=== PATIENT | male | born 1955 | race Caucasian/White ===

== ENCOUNTER 2018-07-06 08:31 | Inpatient (IN) ==
[2018-07-06] MEDS ORDERED: LACTATED RINGERS 1,000 ML IV ONE ×3 (09:03→12:39)
[2018-07-06] MEDS ORDERED: 0.9 % SODIUM CHLORIDE 250 ML IV SCH (09:30)
[2018-07-06] MEDS ORDERED: ONDANSETRON 4 MG/2 ML VIAL IV ONE (09:48)
[2018-07-06 10:10] LABS: ALT/SGPT 14 U/l (0-40); Albumin 3.5 gm/dL (3.2-5.2); Albumin/Globulin Ratio 0.9 (1.0-2.3); Alkaline Phosphatase 59 U/L (39-117); Blood Urea Nitrogen 24 mg/dl (6-20)
[2018-07-06 10:24] LABS: Basophils # (Auto) 0 K/mcL (0.0-0.3); Basophils % (Auto) 0 % (0.0-2.0); Eosinophils # (Auto) 0.2 K/mcL (0.0-0.7); Eosinophils % (Auto) 1.3 % (0.0-7.0); Granulocytes % (Auto) 74.6 % (38.0-78.0); Lymphocytes # (Auto) 1.9 K/mcL (1.5-4.8); Lymphocytes % (Auto) 15.5 % (15.5-49.0); Mean Cell Volume 86.8 fL (80.0-100.0); Mean Corpuscular Hemoglobin 28.6 pg (26.0-34.0); Monocytes % (Auto) 8.6 % (1.0-12.0); Platelet Count 315 K/mcL (140-440); RBC 4.05 M/mcL (4.50-5.90)
--- NOTE | 2018-07-06 10:42 | Emergency Department Note ---
GI Bleed HPI - General Chief complaint: Rectal Bleed Stated complaint: "Blood in my rectum" Time Seen by Provider: 07/06/18 09:50 Source: patient Mode of arrival: ambulatory Limitations: no limitations - History of Present Illness HPI Narrative: Patient states he has been having increased weakness over the past week. Was seen by his primary care provider on 3 days ago complaining mostly of nausea did not have any bleeding at that time. He states over the past 2-3 days he has been having some blood in his stools and when he vomited did have some blood streaks over the past 2 days. Patient has had a history of alcohol abuse in the past but states he has not drank in the past 3 years. Had a history of pancreatitis in the past he was evaluated by Dr. Pretty his primary care provider and at that time his hemoglobin is 14.7 hematocrit of 44.[address] Ash record he has been having vomiting over the past week due to him being seen on . He did have a fall yesterday because of the weakness and did hit his head there was no loss of consciousness. He does have some neck pain but he states he also has some chronic neck pain - Related Data Home Medications Medication Instructions Recorded Confirmed divalproex 250 mg tablet,delayed 250 mg PO .COMPLEX 06/03/18 07/05/18 release Prosvent PO BID 06/11/18 07/05/18 Citalopram Hydrobromide 40 mg PO .COMPLEX 06/14/18 07/05/18 [Citalopram HBr] Previous Rx's Medication Instructions Recorded blood sugar diagnostic, disc strips See Dose Instructions .ROUTE 04/04/17 .MEDSUPPLY #100 each NS MDD Three times daily blood-glucose meter See Dose Instructions .ROUTE 04/04/17 .MEDSUPPLY #1 each MDD Three times daily insulin glargine (U-100) 100 24 unit SUB-Q QHS #3 ml 05/24/17 unit/mL (3 mL) subcutaneous pen tamsulosin 0.4 mg capsule 0.4 mg PO BID #60 cap 08/27/17 pravastatin 40 mg tablet 40 mg PO QHS #90 tab 09/19/17 metformin 1,000 mg tablet 1,000 mg PO BID 90 Days #180 tab 12/31/17 finasteride 5 mg tablet 5 mg PO QDAY #90 tab 02/20/18 blood-glucose meter See Dose Instructions .ROUTE 02/21/18 .MEDSUPPLY #1 each metoprolol tartrate 25 mg tablet 25 mg PO BID #180 tab 03/14/18 nortriptyline 10 mg capsule 10 mg PO QHS #90 cap 04/03/18 trazodone 50 mg tablet 50 mg PO QHS #90 tab 04/16/18 buspirone 10 mg tablet 15 mg PO BID #180 tab 04/23/18 Accu-Chek Softclix Lancets See Dose Instructions .ROUTE 04/25/18 .MEDSUPPLY #200 each NS MDD Three times daily catheter 16 Fr See Dose Instructions .ROUTE 05/15/18 .MEDSUPPLY #12 each blood sugar diagnostic strips See Dose Instructions .ROUTE 06/03/18 .MEDSUPPLY #100 each levothyroxine 75 mcg tablet 75 mcg PO QDAY #90 tab 06/03/18 pen needle, diabetic 32 gauge x See Dose Instructions .ROUTE 06/17/1832" .MEDSUPPLY #200 each MDD QID ondansetron 4 mg disintegrating 4 mg PO BID-TID PRN #30 tab 07/04/18 tablet Allergies Allergy/AdvReac Type Severity Reaction Status Date / Time insulin glargine Allergy Severe Itching, Verified 07/05/18 08:08 [From Basaglar KwikPen] Rash venlafaxine [From Effexor] AdvReac Mild Itching Verified 07/06/18 08:32 Lantus solostar Allergy Severe Rash, Uncoded 07/05/18 08:08 itching Review of Systems All systems ED: reviewed and negative except as stated. Constitutional: Denies: fever, chills Gastrointestinal: Reports: nausea, vomiting, diarrhea, other (Blood in stool, some blood tinge vomitus. No coffee-ground emesis) Genitourinary: Denies: dysuria, frequency, urgency Musculoskeletal: Denies: back pain, joint swelling Integumentary: Denies: rash, lesions Neurological: Denies: headache, weakness Psychiatric: Denies: anxiety, depression Endocrine: Denies: fatigue Hematological/Lymphatic: Denies: easy bleeding Allergic/Immunologic: Denies: facial swelling Past Medical History - Past Medical History PMFSH Narrative: All Active Problems (Last Reviewed 07/05/18 @ 08:09 by María Miranda RN) Shoulder pain (Acute) Urinary retention due to benign prostatic hyperplasia (Acute) BPH (benign prostatic hyperplasia) (Acute) Urinary retention (Acute) Cervical radicular pain (Chronic) Left shoulder pain (Acute) Neck pain (Chronic) Irritable bowel syndrome with diarrhea (Chronic) Alcoholism (Chronic) Hypertension (Chronic) Sleep apnea (Chronic) Encounter for medication refill (Acute) Right ankle pain (Acute) Elevated PSA (Acute) Urinary tract infection (Acute) Headache (Acute) Change in vision (Acute) Patellofemoral syndrome of left knee (Acute) Diabetes type 2, uncontrolled (Chronic) Hyperlipidemia associated with type 2 diabetes mellitus (Chronic) Diabetes mellitus (Chronic) Erectile dysfunction (Chronic) Depression (Chronic) 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) History of ERCP (Chronic) Urinary retention (Chronic) Ulnar nerve compression (Chronic) Pancreatitis (Chronic) Neoplasm of uncertain behavior of skin (Chronic) Memory loss (Chronic) Insomnia due to mental disorder (Chronic) Hypertension, essential (Chronic) Dyspepsia (Chronic) Major depressive disorder, recurrent episode, in full remission (Chronic) Carpal tunnel syndrome (Chronic) Cardiac dysrhythmia (Chronic) Benign prostatic hyperplasia with urinary obstruction (Chronic) Benign neoplasm with pluriglandular involvement (Acute) Bipolar I disorder, most recent episode (or current) depressed, in partial or unspecified remission (Chronic) Anxiety disorder (Chronic) Anemia (Chronic) Alcohol abuse, continuous (Chronic) Past Surgical History (Last Reviewed 07/05/18 @ 08:09 by María Miranda RN) Squamous cell carcinoma (Inactive) History of prostate biopsy (Inactive) History of ERCP (Chronic) Colonoscopy planned (Resolved) Family History (Last Reviewed 07/05/18 @ 08:09 by María Miranda RN) Father Malignant neoplasm of brain Grandfather (Maternal) Type 2 diabetes mellitus Unknown No history of heart disease Family History (Last Reviewed 07/05/18 @ 08:09 by María Miranda RN) Father Malignant neoplasm of brain Grandfather (Maternal) Type 2 diabetes mellitus Unknown No history of heart disease Social History (Last Updated 07/05/18 @ 08:19 by Les Case MD) No Social History Section defined Medical history: Reports: DM (Type II insulin using.), hypertension (But was going low enough that this was discontinued about 2017.), other (chronic neck pain). Denies: cancer, coronary artery disease, CVA, myocardial infarction, TIA Psychiatric history: Reports: anxiety, depression Surgical history ED: Reports: orthopedic, other (Cervical fusion.) - Social History smoking status: Current every day smoker Alcohol use: Reports: Heavy (Heavy in the past states has not drank for 3 years) Drug use: Reports: none Physical Exam Limitations: no limitations General appearance: alert Head: atraumatic, normocephalic Eye: Present: normal appearance, PERRL ENT: normal exam, normal oropharynx, mucous membranes moist Neck: Present: normal inspection, full ROM, trachea midline Chest: Present: normal inspection, symmetric chest wall rise. Absent: tenderness Respiratory: Present: normal lung sounds bilaterally. Absent: respiratory distress, rales/crackles, wheezes Cardiovascular: Present: regular rate, normal rhythm Abdominal: Present: tenderness, normal bowel sounds. Absent: guarding, rebound , rigidity Abdominal tenderness: Present: epigastrium Rectal: Present: normal inspection, normal rectal tone, heme (+) stool Extremities: Present: normal inspection, full ROM Back: Present: normal inspection, full ROM Neurological: Present: alert, oriented X3, CN II-XII intact Psychiatric: Present: normal affect, normal mood Skin: Present: warm Course Vital Signs Temperature 96.8 F L 07/06/18 08:32 Pulse Rate 89 07/06/18 08:32 Respiratory Rate 18 07/06/18 08:32 Blood Pressure 84/56 07/06/18 08:32 Pulse Oximetry (%) 99 07/06/18 08:32 Temperature 96.8 F L 07/06/18 08:32 Pulse Rate 69 07/06/18 11:52 Respiratory Rate 26 H 07/06/18 11:52 Blood Pressure 90/59 07/06/18 11:46 Pulse Oximetry (%) 97 07/06/18 11:52 GI Bleed - [facility] Narrative Medical decision making narrative: Head CT neck CT was read as negative by Dr. StantonBC is 12,100 hemoglobin is 11.6 hemoglobin 3 days ago was 14.7 medical today's 38 previous hematocrit on was 44. The BUN is 26 creatinine 0.9. Sodium is 135 and the potassium is 4.1 lipase is pending. His initial blood pressure was 84/56, with a pulse of 89His current blood pressure is 110/64 pulse is down to 64Hemoglobin is 11.6 and a hematocrit of 38.0 previous hemoglobin was 14 on 3 days ago. His blood pressures did get up to 100 systolic but is back down to 90 he came in with a blood pressure of 70s systolically did have a fall yesterday from weakness lightheadedness lactic acid 2.7 lipase is 58 BUN is 26 creatinine of 0.[address] Alberto contacted and he will do an EGD this afternoon to be kept n.p.o. Dr. Tomlinson, hospitalist at [facility] has accepted the patient to stabilize and continue further workup patient states he has been taking ibuprofen over the past week at least 4 tablets a day but again denies alcohol for the past 3-5 years - Lab Data Result diagrams: 07/06/18 08:57 07/06/18 08:57 Lab Results 07/06/18 07/06/18 07/06/18 Range/Units 08:57 08:57 08:57 WBC 12.1 H (4.5-11.0) K/mcL RBC 4.05 L (4.50-5.90) M/mcL Hgb 11.6 L (13.5-16.5) g/dL Hct 35.1 L (41.0-55.0) % POC Hct 38.0 L (41.0-55.0) % MCV 86.8 (80.0-100.0) fL MCH 28.6 (26.0-34.0) pg MCHC 33.0 (31.0-36.0) g/dL RDW 15.0 H (11.5-14.5) % Plt Count 315 (140-440) K/mcL MPV 7.6 (7.4-10.4) fL Gran % 74.6 (38.0-78.0) % Lymph % (Auto) 15.5 (15.5-49.0) % Liberty % (Auto) 8.6 (1.0-12.0) % Eos % (Auto) 1.3 (0.0-7.0) % Baso % (Auto) 0 (0.0-2.0) % Gran # 9.0 H (1.8-8.0) K/mcL Lymph # (Auto) 1.9 (1.5-4.8) K/mcL Liberty # (Auto) 1.0 H (0.1-0.9) K/mcL Eos # (Auto) 0.2 (0.0-0.7) K/mcL Baso # (Auto) 0 (0.0-0.3) K/mcL VBG Lactic Acid (0.5-2.2) mmol/L POC Sodium 135 (133-145) mmol/L Sodium 133 (133-145) mmol/L POC Potassium 4.1 (3.3-5.1) mmol/L Potassium 4.2 (3.3-5.1) mmol/L POC Chloride 97 (96-108) mmol/L Chloride 94 L (96-108) mmol/L Carbon Dioxide 24 (22-30) mmol/L POC Total CO2 25 (22-30) mmol/L Anion Gap 15.0 (8-16) POC BUN 26 H (6-20) mg/dl BUN 24 H (6-20) mg/dl Creatinine 0.9 (0.7-1.2) mg/dl POC Creatinine 0.8 (0.7-1.2) mg/dl GFR Calculation 93 Glucose 107 H (70-105) mg/dL POC Glucose 106 H (70-105) mg/dL Calcium 9.2 (8.6-10.4) mg/dl POC WB Ioniz Calcium 1.16 (1.16-1.32) mmol/L Total Bilirubin 0.3 (0.0-1.0) mg/dL AST 19 (0-37) U/l ALT 14 (0-40) U/l Alkaline Phosphatase 59 (39-117) U/L Total Protein 7.2 (5.9-8.4) gm/dL Albumin 3.5 (3.2-5.2) gm/dL Globulin 3.7 (2.2-3.7) gm/dL Albumin/Globulin Ratio 0.9 L (1.0-2.3) Lipase 58 (7-60) U/L Ethyl Alcohol (<0.010) gm/dl 07/06/18 07/06/18 Range/Units 08:57 10:30 WBC (4.5-11.0) K/mcL RBC (4.50-5.90) M/mcL Hgb (13.5-16.5) g/dL Hct (41.0-55.0) % POC Hct (41.0-55.0) % MCV (80.0-100.0) fL MCH (26.0-34.0) pg MCHC (31.0-36.0) g/dL RDW (11.5-14.5) % Plt Count (140-440) K/mcL MPV (7.4-10.4) fL Gran % (38.0-78.0) % Lymph % (Auto) (15.5-49.0) % Liberty % (Auto) (1.0-12.0) % Eos % (Auto) (0.0-7.0) % Baso % (Auto) (0.0-2.0) % Gran # (1.8-8.0) K/mcL Lymph # (Auto) (1.5-4.8) K/mcL Liberty # (Auto) (0.1-0.9) K/mcL Eos # (Auto) (0.0-0.7) K/mcL Baso # (Auto) (0.0-0.3) K/mcL VBG Lactic Acid 2.7 H (0.5-2.2) mmol/L POC Sodium (133-145) mmol/L Sodium (133-145) mmol/L POC Potassium (3.3-5.1) mmol/L Potassium (3.3-5.1) mmol/L POC Chloride (96-108) mmol/L Chloride (96-108) mmol/L Carbon Dioxide (22-30) mmol/L POC Total CO2 (22-30) mmol/L Anion Gap (8-16) POC BUN (6-20) mg/dl BUN (6-20) mg/dl Creatinine (0.7-1.2) mg/dl POC Creatinine (0.7-1.2) mg/dl GFR Calculation Glucose (70-105) mg/dL POC Glucose (70-105) mg/dL Calcium (8.6-10.4) mg/dl POC WB Ioniz Calcium (1.16-1.32) mmol/L Total Bilirubin (0.0-1.0) mg/dL AST (0-37) U/l ALT (0-40) U/l Alkaline Phosphatase (39-117) U/L Total Protein (5.9-8.4) gm/dL Albumin (3.2-5.2) gm/dL Globulin (2.2-3.7) gm/dL Albumin/Globulin Ratio (1.0-2.3) Lipase (7-60) U/L Ethyl Alcohol < 0.010 (<0.010) gm/dl Disposition Pt seen by PRIMARY HEALTH ORGANISATION MANAGER/PA only: No Clinical Impression: GI bleed Disposition: Xfer As Inpt ([facility]) Condition: Fair Referrals: Nando Pretty DO [Primary Care Provider] -
[2018-07-06] MEDS ORDERED: PANTOPRAZOLE 40 MG VIAL IV ONE (10:47)
[2018-07-06] MEDS ORDERED: PANTOPRAZOLE 80 MG in 0.9 % SODIUM CHLORIDE 100 ML IV SCH (11:00)
[2018-07-06] MEDS: LACTATED RINGERS 1,000 ML IV SCH ×2 (11:15→20:10)
[2018-07-06] MEDS ORDERED: ONDANSETRON 4 MG/2 ML VIAL IV PRN ×2 (12:29→13:25)
[2018-07-06] MEDS ORDERED: 0.9 % SODIUM CHLORIDE 1,000 ML IV SCH (12:30)
--- NOTE | 2018-07-06 12:42 | Internal Med History&Physical ---
Medical - H&P: [facility] Patient information: Note initiated : 07/06/18 at 12:38 pm Service Date, if different from initiated Date: [] Patient: Ozzy Greenberg 62 y/o M admitted on for "Blood in my rectum". Chief Complaint: [] History of present illness: Mr. Greenberg is a 62 year old M Who has been taking ibuprofen every day since procedure with Dr. Case several weeks ago. Patient to use [id number] ibuprofen, 4 tablets daily typically. Last Sunday night he threw up what appeared to be dark blood coffee ground in appearance. The next day saw his primary care provider patient was given Zofran and continue with good oral hydration, if unable to keep anything down to go to the ER. Next 2 days he was able to keep fluids down, however today he woke up a large dark bloody stool. Yesterday he also became so lightheaded that he passed out. Has been very weak lately. Denies any chest pain he has chronic cough and shortness of breath which is normal for him. He is to drink heavily he says he has not had any alcohol for 35 years. Does not recall ever being told he has varices. In the ER is evaluate his hemoglobin is 11.6 down from 14 a few days ago, BUN mildly up. Was found to be hypotensive in the 70s and given lactated Ringer boluses in the ER. Also found to have an elevated lactate. Patient complains of headaches lightheadedness weakness chills. Dr. Alberto contacted from the ED and will perform endoscopy Review of Systems: Positive for lightheadedness syncope weakness chills vomiting blood blood in stools . denies headache/fever/chills/nausea/vomiting/chest or abdominal pain/ cough/dyspnea/diarrhea. 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) Urinary retention (Chronic) Ulnar nerve compression (Chronic) Pancreatitis (Chronic) Neoplasm of uncertain behavior of skin (Chronic) Memory loss (Chronic) Insomnia due to mental disorder (Chronic) Hypertension, essential (Chronic) Hypercalcemia (Resolved) Encephalopathy (Resolved) Dyspepsia (Chronic) Major depressive disorder, recurrent episode, in full remission (Chronic) Carpal tunnel syndrome (Chronic) Cardiac dysrhythmia (Chronic) Benign prostatic hyperplasia with urinary obstruction (Chronic) Benign neoplasm with pluriglandular involvement (Acute) Bipolar I disorder, most recent episode (or current) depressed, in partial or unspecified remission (Chronic) Anxiety disorder (Chronic) Anemia (Chronic) Alcohol abuse, continuous (Chronic) Fracture of metatarsal bone, closed (Resolved) Hypothyroidism (acquired) (Resolved) Rash, skin (Resolved) Renal failure (Resolved) Sprain of ankle (Resolved) Past Surgical History (Last Reviewed 07/05/18 @ 08:09 by María Miranda, ZAK) Squamous cell carcinoma (Inactive) History of prostate biopsy (Inactive) History of ERCP (Chronic) Colonoscopy planned (Resolved) Family History (Last Reviewed 07/05/18 @ 08:09 by María Miranda, ZAK) Father Malignant neoplasm of brain Grandfather (Maternal) Type 2 diabetes mellitus Unknown No history of heart disease Social History (Last Updated 07/05/18 @ 08:19 by Les Case MD) Smokes 1 pack/day Has not had any alcohol for 3 years Uses marijuana occasionally Ambulates with a cane on occasion Lives by himself Medical - H&P: Meds Home Medications Medication Instructions Recorded Confirmed Type blood sugar diagnostic, disc strips See Dose Instructions .ROUTE 04/04/17 Rx .MEDSUPPLY #100 each NS MDD Three times daily blood-glucose meter See Dose Instructions .ROUTE 04/04/17 07/05/18 Rx .MEDSUPPLY #1 each MDD Three times daily insulin glargine (U-100) 100 24 unit SUB-Q QHS #3 ml 05/24/17 07/05/18 Rx unit/mL (3 mL) subcutaneous pen tamsulosin 0.4 mg capsule 0.4 mg PO BID #60 cap 08/27/17 07/05/18 Rx pravastatin 40 mg tablet 40 mg PO QHS #90 tab 09/19/17 07/05/18 Rx metformin 1,000 mg tablet 1,000 mg PO BID 90 Days #180 tab 12/31/17 07/05/18 Rx finasteride 5 mg tablet 5 mg PO QDAY #90 tab 02/20/18 07/05/18 Rx blood-glucose meter See Dose Instructions .ROUTE 02/21/18 07/05/18 Rx .MEDSUPPLY #1 each metoprolol tartrate 25 mg tablet 25 mg PO BID #180 tab 03/14/18 07/05/18 Rx nortriptyline 10 mg capsule 10 mg PO QHS #90 cap 04/03/18 07/05/18 Rx trazodone 50 mg tablet 50 mg PO QHS #90 tab 04/16/18 07/05/18 Rx buspirone 10 mg tablet 15 mg PO BID #180 tab 04/23/18 07/05/18 Rx Accu-Chek Softclix Lancets See Dose Instructions .ROUTE 04/25/18 07/05/18 Rx .MEDSUPPLY #200 each NS MDD Three times daily catheter 16 Fr See Dose Instructions .ROUTE 05/15/18 07/05/18 Rx .MEDSUPPLY #12 each blood sugar diagnostic strips See Dose Instructions .ROUTE 06/03/18 07/05/18 Rx .MEDSUPPLY #100 each divalproex 250 mg tablet,delayed 250 mg PO .COMPLEX 06/03/18 07/05/18 History release levothyroxine 75 mcg tablet 75 mcg PO QDAY #90 tab 06/03/18 07/05/18 Rx Prosvent PO BID 06/11/18 07/05/18 History Citalopram Hydrobromide 40 mg PO .COMPLEX 06/14/18 07/05/18 History [Citalopram HBr] pen needle, diabetic 32 gauge x See Dose Instructions .ROUTE 06/17/18 07/05/18 Rx 5/32" .MEDSUPPLY #200 each MDD QID ondansetron 4 mg disintegrating 4 mg PO BID-TID PRN #30 tab 07/04/18 07/05/18 Rx tablet Allergies Allergy/AdvReac Type Severity Reaction Status Date / Time insulin glargine Allergy Severe Itching, Verified 07/05/18 08:08 [From Mosesaglcassi Birch] Rash venlafaxine [From Effexor] AdvReac Mild Itching Verified 07/06/18 08:32 Lantus solostar Allergy Severe Rash, Uncoded 07/05/18 08:08 itching Medical - H&P: Exam - Constitutional Vitals: Temp Pulse Resp BP Pulse Ox 96.8 F L 69 26 H 90/59 97 07/06/18 08:32 07/06/18 11:52 07/06/18 11:52 07/06/18 11:46 07/06/18 11:52 Exam: General: Alert, Awake, No acute Distress HEENT: EOMI, pupils equal round react to light, normocephalic atraumatic, dry mucous members CV: RRR, No murmurs, normal s1/s2 Pulm: Clear b/l, no wheezing/rhonchi/rales Abd: soft, tender to palpation epigastrium, +BS x4 Ext: no clubbing/cyanosis/edema Neuro: Alert, no focal deficits, moves all extremities Skin: warm/dry Medical - H&P: Reslt - Labs CBC & Chem 7: 07/06/18 08:57 07/06/18 08:57 Labs: Short CBC 07/06/18 Range/Units 08:57 WBC 12.1 H (4.5-11.0) K/mcL Hgb 11.6 L (13.5-16.5) g/dL Hct 35.1 L (41.0-55.0) % Plt Count 315 (140-440) K/mcL BMP 07/06/18 08:57 Sodium 133 Potassium 4.2 Chloride 94 L Carbon Dioxide 24 BUN 24 H Creatinine 0.9 Glucose 107 H Calcium 9.2 Liver Function 07/06/18 Range/Units 08:57 Total Bilirubin 0.3 (0.0-1.0) mg/dL AST 19 (0-37) U/l ALT 14 (0-40) U/l Alkaline Phosphatase 59 (39-117) U/L Albumin 3.5 (3.2-5.2) gm/dL Medical - H&P: A/P - Narrative A/P Narrative: A: *GI bleed w/hematemesis & melena: Likely PUD, but given h/o etoh concern for varices, although this does not appear to be variceal bleed at this time. -Recent NSAID use *Hypertension, hemorrhagic volume loss: Responding IV fluids *Anemia, acute blood loss: secondary to above *Syncope: secondary to above *Diabetes: On insulin and metformin at home *Hypertension: Is on Lopressor at home *Depression/anxiety: *Hypothyroidism *Tobacco abuse: P: -Serial H&H -IV fluid resuscitation -GI consulted, pending endoscopy today -Octreotide and Protonix drip -Follow-up lactate -Hold blood pressure medications -Clarify other home medications -NPO -ppx: SCD
[2018-07-06] MEDS ORDERED: NICOTINE 21 MG PATCH TOPICAL ONE (13:25)
[2018-07-06] MEDS: 0.9 % SODIUM CHLORIDE 1,000 ML IV SCH (13:54)
[2018-07-06] MEDS ORDERED: OCTREOTIDE ACETATE 500 MCG in 0.9 % SODIUM CHLORIDE 499.5 ML IV SCH (14:00)
[2018-07-06] MEDS ORDERED: 0.9 % SODIUM CHLORIDE 10 ML SYRINGE IV SCH (14:00)
[2018-07-06] MEDS: 0.9 % SODIUM CHLORIDE 10 ML SYRINGE IV SCH ×2 (14:33→21:41)
--- NOTE | 2018-07-06 15:24 | Cat Scan Report ---
History: Fell and hit right side of face and head TECHNIQUE: The brain was imaged without contrast at 2.5 mm intervals. Radiation exposure was limited using dose reduction technology. FINDINGS: There is no evidence of mass affect, hemorrhage, infarct or developmental anomaly. There is mild generalized cerebral atrophy. The ventricles are normal in size. No abnormal extra-axial fluid collection is present. The bone windows show no fracture. Mild bilateral maxillary sinusitis is noted. There has been little change from the prior exam done on 04/17/17. IMPRESSION: Mild atrophy and no acute abnormality Dr. Hernandez was called with the results Interpreted and Authenticated by: Ozzy Yen 07/06/18
--- NOTE | 2018-07-06 15:29 | Cat Scan Report ---
History: Fell with neck injury TECHNIQUE: The neck was imaged without contrast at 2.5 mm intervals. Sagittal and coronal reformats were created. The radiation exposure was limited using dose reduction technology. FINDINGS: The cervico-occipital junction is normal. There is no fracture or spondylolisthesis. There is normal alignment and healing following prior fusion anteriorly across the C6-7 disc space. There is ossification of the anterior longitudinal ligament at that level. Very large anterior bridging spurs are present at C4-5 and C5-6 and there medium-size anterior spurs at C3-4 and C7-T1. There is also moderate arthritis at the articulation of the odontoid and anterior ring of C1. The C5-6 and C7-T1 discs are mildly narrowed. The remainder of the disc spaces are normal in height and alignment There is arthritis in the facet joints at several levels with the greatest degeneration on the left side at C4-5. There is also spurring of the uncinate processes at multiple levels. These degenerative changes are causing stenosis of neural foramina bilaterally throughout the neck. There is also mild central canal stenosis at C2-3, C3-4, C5-6. There has been no significant change since 01/09/18. 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
--- NOTE | 2018-07-06 15:32 | XRay Report ---
HISTORY: Fell and increased weakness FINDINGS: The lungs are clear and well expanded. The heart size, mediastinum, michelle and pleura are normal. There are several old healed bilateral rib fractures. No acute fracture is identified. There has been no significant change since 07/04/18. IMPRESSION: Normal chest. Interpreted and Authenticated by: Ozzy Yen 07/06/18
[2018-07-06] MEDS ORDERED: MIDAZOLAM 2 MG/2 ML VIAL IV SCH (16:15)
[2018-07-06] MEDS ORDERED: PROPOFOL 200 MG/20 ML VIAL IV SCH (16:15)
[2018-07-06] MEDS ORDERED: PROPOFOL 20 ML IV ONE (16:26)
[2018-07-06] MEDS ORDERED: MIDAZOLAM 2 MG/2 ML VIAL ONE (16:26)
[2018-07-06] MEDS ORDERED: EPINEPHrine 1 MG/ML AMPUL SQ ONE (18:56)
[2018-07-06] MEDS: 0.9 % SODIUM CHLORIDE 250 ML IV SCH (19:40)
[2018-07-06] MEDS: NORTRIPTYLINE 10 MG CAPSULE PO SCH (20:26)
[2018-07-06] MEDS: traZODone HCL 50 MG TABLET PO SCH (20:26)
[2018-07-06] MEDS: DIVALPROEX SODIUM 250 MG TAB.ER.24H PO SCH (20:27)
[2018-07-06] MEDS ORDERED: TAMSULOSIN 0.4 MG CAPSULE PO SCH (21:00)
[2018-07-06] MEDS: PANTOPRAZOLE 80 MG in 0.9 % SODIUM CHLORIDE 100 ML IV SCH (21:41)
[2018-07-07] MEDS: 0.9 % SODIUM CHLORIDE 1,000 ML IV SCH (01:16)
[2018-07-07 05:50] LABS: Basophils # (Auto) 0 K/mcL (0.0-0.3); Basophils % (Auto) 0.4 % (0.0-2.0); Eosinophils # (Auto) 0.1 K/mcL (0.0-0.7); Eosinophils % (Auto) 2.2 % (0.0-7.0); Granulocytes % (Auto) 54.1 % (38.0-78.0); Lymphocytes # (Auto) 1.1 K/mcL (1.5-4.8); Lymphocytes % (Auto) 34.2 % (15.5-49.0); Mean Cell Volume 91.6 fL (80.0-100.0); Mean Corpuscular HGB Conc 34.1 g/dL (31.0-36.0); Mean Corpuscular Hemoglobin 31.2 pg (26.0-34.0); Monocytes # (Auto) 0.3 K/mcL (0.1-0.9); Monocytes % (Auto) 9.1 % (1.0-12.0); Platelet Count 159 K/mcL (140-440); RBC 2.53 M/mcL (4.50-5.90); Red Cell Distribution Width 14.7 % (11.5-14.5)
[2018-07-07 06:35] LABS: ALT/SGPT 12 U/l (0-40); Albumin 2.1 gm/dL (3.2-5.2); Albumin/Globulin Ratio 0.8 (1.0-2.3); Alkaline Phosphatase 41 U/L (39-117); Bilirubin,Direct < 0.2 mg/dL (0.0-0.3); Blood Urea Nitrogen 14 mg/dl (6-20); Gamma Glutamyl Transpeptidase 10 U/L (8-61); Uric Acid 6.8 mg/dL (2.5-8.0)
[2018-07-07] MEDS: 0.9 % SODIUM CHLORIDE 10 ML SYRINGE IV SCH ×3 (06:36→20:55)
[2018-07-07] MEDS: FINASTERIDE 5 MG TABLET PO SCH (07:21)
[2018-07-07] MEDS: LEVOTHYROXINE 75 MCG TABLET PO SCH (07:21)
[2018-07-07] MEDS: DIVALPROEX SODIUM 250 MG TAB.ER.24H PO SCH ×2 (07:21→20:55)
[2018-07-07] MEDS: TAMSULOSIN 0.4 MG CAPSULE PO SCH (07:22)
[2018-07-07] MEDS: PANTOPRAZOLE 80 MG in 0.9 % SODIUM CHLORIDE 100 ML IV SCH (07:47)
--- NOTE | 2018-07-07 07:48 | Internal Med Progress Note ---
Medical - PN: Subj Patient information: Note initiated : 07/07/18 at 7:40 am Service Date, if different from initiated Date: [] Patient: Ozzy Greenberg 62 y/o M admitted on 07/06/18 for "Blood in my rectum". Chief Complaint: [] Interval history: Mr. Greenberg is a 62 year old M Who has been taking ibuprofen every day since procedure with Dr. Case several weeks ago. Patient to use [id number] ibuprofen, 4 tablets daily typically. Last Sunday night he threw up what appeared to be dark blood coffee ground in appearance. The next day saw his primary care provider patient was given Zofran and continue with good oral hydration, if unable to keep anything down to go to the ER. Next 2 days he was able to keep fluids down, however today he woke up a large dark bloody stool. Yesterday he also became so lightheaded that he passed out. Has been very weak lately. Denies any chest pain he has chronic cough and shortness of breath which is normal for him. He is to drink heavily he says he has not had any alcohol for 35 years. Does not recall ever being told he has varices. In the ER is evaluate his hemoglobin is 11.6 down from 14 a few days ago, BUN mildly up. Was found to be hypotensive in the 70s and given lactated Ringer boluses in the ER. Also found to have an elevated lactate. Patient complains of headaches lightheadedness weakness chills. Dr. Alberto contacted from the ED and will perform endoscopy 07/07 Duodenal ulcer noted and treated by EGD per Dr. Alberto last night. As well as esophagitis. Patient denies bleeding overnight. Feeling better. Review of Systems: denies headache/fever/chills/nausea/vomiting/chest or abdominal pain/cough/ dyspnea/diarrhea. Otherwise see above. - Constitutional Vitals: Vital Signs Temp Pulse Resp BP Pulse Ox 97.5 F 77 16 139/93 98 07/07/18 07:24 07/06/18 19:51 07/07/18 07:24 07/07/18 07:24 07/07/18 07:24 Period Temp Pulse Resp BP Sys/Glae Pulse Ox Last 24 Hr 96.8 F-99.0 F 62-89 12-29 77-139/39-93 92-100 Intake and Output 07/06/18 07/07/18 07/07/18 21:59 05:59 13:59 Intake Total 111 / 111 1050 / 1050 Output Total 700 / 700 1275 / 1275 Balance -589 / -589 -225 / -225 Weight 74.888 kg Intake & Output: Intake & Output 07/06/18 07/07/18 07/07/18 21:59 05:59 13:59 Intake Total 111 / 111 1050 / 1050 Output Total 700 / 700 1275 / 1275 Balance -589 / -589 -225 / -225 Weight 74.888 kg Intake: IV 111 / 111 1000 / 1000 Sodium Chloride 0.9% 1,000 ml @ 1000 / 1000 100 mls/hr IV .Q10H JARROD Rx#: [id number] Sandostatin 500 Mcg In Sodium 91 / 91 Chloride 0.9% 499.5 ml @ 25 MCG /HR 25 mls/hr IV Q20H JARROD Rx#: [id number] Oral 50 / 50 Output: Urine Catheter Amount 400 / 400 Void Amount 300 / 300 1275 / 1275 Other: Urine Appearance Clear Clear Urine Color Dark Yellow Dark Yellow Urine Odor Normal # Voids 1 Exam: General: Alert, Awake, No acute Distress HEENT: EOMI, neck supple CV: RRR, No murmurs, normal s1/s2 Pulm: Clear b/l, no wheezing/rhonchi/rales Abd: soft, tender to palpation epigastrium improving, +BS x4 Ext: no clubbing/cyanosis/edema Neuro: Alert, no focal deficits, moves all extremities Skin: warm/dry Medical - PN: Obj Da - Labs CBC & Chem 7: 07/07/18 03:42 07/07/18 03:42 Labs: Abnormal Lab Results 07/07/18 07/07/18 07/06/18 03:42 03:42 20:00 WBC 3.2 L RBC 2.53 L Hgb 7.9 L 8.8 L Hct 23.2 L 26.9 L POC Hct RDW 14.7 H MPV 6.8 L Gran # 1.7 L Lymph # (Auto) 1.1 L [place] # (Auto) POC PT POC INR VBG Lactic Acid Chloride POC BUN BUN Creatinine 0.6 L Glucose 49 L POC Glucose Calcium 8.1 L Magnesium 1.5 L Total Protein 4.8 L Albumin 2.1 L Albumin/Globulin Ratio 0.8 L 07/06/18 07/06/18 07/06/18 14:00 11:36 10:30 WBC RBC Hgb 8.9 L Hct 25.8 L POC Hct RDW MPV Gran # Lymph # (Auto) [place] # (Auto) POC PT 15.8 H POC INR 1.3 H VBG Lactic Acid 2.7 H Chloride POC BUN BUN Creatinine Glucose POC Glucose Calcium Magnesium Total Protein Albumin Albumin/Globulin Ratio 07/06/18 07/06/18 08:57 08:57 WBC 12.1 H RBC 4.05 L Hgb 11.6 L Hct 35.1 L POC Hct 38.0 L RDW 15.0 H MPV Gran # 9.0 H Lymph # (Auto) [place] # (Auto) 1.0 H POC PT POC INR VBG Lactic Acid Chloride 94 L POC BUN 26 H BUN 24 H Creatinine Glucose 107 H POC Glucose 106 H Calcium Magnesium Total Protein Albumin Albumin/Globulin Ratio 0.9 L Meds: Medications Divalproex Sodium (Depakote Er) 250 mg PO DAILY [facility] Last Admin: 07/07/18 07:21 Dose: 250 mg Divalproex Sodium (Depakote Er) 500 mg PO HS [facility] Last Admin: 07/06/18 20:27 Dose: 500 mg Epinephrine HCl (Adrenalin) 2 mg SQ ONCE ONE Stop: 07/06/18 18:57 Last Admin: 07/06/18 18:58 Dose: 2 mg Finasteride (Proscar) 5 mg PO QDAY [facility] Last Admin: 07/07/18 07:21 Dose: 5 mg Pantoprazole Sodium 80 mg/ (Sodium Chloride) 100 mls @ 10 mls/hr IV Q10H [facility] Last Admin: 07/06/18 21:41 Dose: 8 mg/hr, 10 mls/hr Sodium Chloride (Sodium Chloride 0.9%) 1,000 mls @ 100 mls/hr IV .Q10H [facility] Stop: 07/07/18 08:29 Last Admin: 07/07/18 01:16 Dose: 100 mls/hr Sodium Chloride (Sodium Chloride 0.9%) 250 mls @ 20 mls/hr IV .[id number] [facility] Last Admin: 10/13/18 19:40 Dose: 10 mls/hr Insulin Glargine (Lantus) 24 unit SQ DAILY [facility] Levothyroxine Sodium (Synthroid) 75 mcg PO QAMAC [facility] Last Admin: 07/07/18 07:21 Dose: 75 mcg Nortriptyline HCl (Pamelor) 10 mg PO QHS [facility] Last Admin: 07/06/18 20:26 Dose: 10 mg Ondansetron HCl (Zofran) 4 mg IV Q4HP PRN PRN Reason: Nausea And Vomiting Sodium Chloride (Saline Flush) 10 ml IV Q8 [facility] Last Admin: 07/07/18 06:36 Dose: Not Given Tamsulosin HCl (Flomax) 0.4 mg PO DAILY [facility] Last Admin: 07/07/18 07:22 Dose: 0.4 mg Trazodone HCl (Desyrel) 50 mg PO QHS [facility] Last Admin: 07/06/18 20:26 Dose: 50 mg Medical - PN: A/P - Time Spent With Patient Total time spent is greater than 50% in coordination of care (as documented) at patient's floor/unit and/or counseling patient: - Narrative A/P Narrative: A: *GI bleed w/hematemesis & melena, upper: 2/2 duodenal ulcer and esophagitis noted on EGD, no varices noted -Recent NSAID use - *Hypotension, hemorrhagic volume loss: Responded to IV fluids -lactic acidosis resolved -resolved *Anemia, acute blood loss: secondary to above -7.9<<11.6 *Syncope: secondary to above *Diabetes: On insulin and metformin at home *Hypertension: Is on Lopressor at home *Depression/anxiety: *Hypothyroidism *Tobacco abuse: P: -Serial H&H, 1unit prbc -d/c IV fluid -GI following, follow-up outpatient for follow-up EGD -Octreotide stopped, switch protonix gtt to bid -restart home lopressor -Hold blood pressure medications -f/u with GI outpt -smoking cessation counseling -ppx: [facility] Medical - PN: Qual - Stroke Symptom Onset Unknown: No - VTE Deep Vein Thrombosis/Pulmonary Embolism Present on Admission: No
[2018-07-07] MEDS ORDERED: EPINEPHrine 1 MG/ML AMPUL IJ ONE (08:00)
[2018-07-07] MEDS: 0.9 % SODIUM CHLORIDE 250 ML IV SCH (08:12)
[2018-07-07] MEDS ORDERED: 0.9 % SODIUM CHLORIDE 250 ML IV SCH (08:30)
[2018-07-07] MEDS ORDERED: INSULIN GLARGINE, HUMAN 1 UNIT/0.01 ML SQ SCH (09:00)
[2018-07-07] MEDS ORDERED: MAGNESIUM OXIDE 400 MG TABLET PO ONE (09:41)
[2018-07-07] MEDS: METOPROLOL TARTRATE 25 MG TABLET PO SCH ×2 (10:30→21:06)
[2018-07-07] MEDS: INSULIN GLARGINE, HUMAN 1 UNIT/0.01 ML SQ SCH (11:27)
--- NOTE | 2018-07-07 11:40 | Discharge Summary ---
Medical - DS: Prov Patient information: Note initiated : 07/07/18 at 11:39 am Service Date, if different from initiated Date: [] Patient: Ozzy Greenberg 62 y/o M admitted on 07/06/18 for "Blood in my rectum". Chief Complaint: [] Date of admission: 07/06/18 13:15 Discharge date: 07/08/18 Primary care physician: Nando Pretty Consults: 07/06/18 11:47 Consult to Physician [CONS] Stat Comment: Consulting Provider: Kael Garcia Reason For Exam: Physician to Consult 07/06/18 11:48 Consult to Physician [CONS] Stat Comment: Consulting Provider: Garrison Tomlinson Reason For Exam: Physician to Consult Medical - DS: Meds - Discharge Medications Prescriptions: Pantoprazole [Protonix] 40 mg PO BIDAC #60 packet Active and Home Medications: Home Medications blood sugar diagnostic, disc strips See Dose Instructions .ROUTE .MEDSUPPLY # 100 each NS MDD Three times daily 04/04/17 [Rx Confirmed 07/05/18 Last Taken Unknown] blood-glucose meter See Dose Instructions .ROUTE .MEDSUPPLY #1 each MDD Three times daily 04/04/17 [Rx Confirmed 07/05/18 Last Taken Unknown] insulin glargine (U-100) 100 unit/mL (3 mL) subcutaneous pen 24 unit SUB-Q QHS # 3 ml 05/24/17 [Rx Confirmed 07/06/18 Last Taken Unknown] tamsulosin 0.4 mg capsule 0.4 mg PO BID #60 cap 08/27/17 [Rx Confirmed 07/06/18 Last Taken Unknown] pravastatin 40 mg tablet 40 mg PO QHS #90 tab 09/19/17 [Rx Confirmed 07/06/18 Last Taken Unknown] metformin 1,000 mg tablet 1,000 mg PO BID 90 Days #180 tab 12/31/17 [Rx Confirmed 07/06/18 Last Taken Unknown] finasteride 5 mg tablet 5 mg PO QDAY #90 tab 02/20/18 [Rx Confirmed 07/06/18 Last Taken Unknown] blood-glucose meter See Dose Instructions .ROUTE .MEDSUPPLY #1 each 02/21/18 [ Rx Confirmed 07/05/18 Last Taken Unknown] metoprolol tartrate 25 mg tablet 25 mg PO BID #180 tab 03/14/18 [Rx Confirmed Last Taken Unknown] nortriptyline 10 mg capsule 10 mg PO QHS #90 cap 04/03/18 [Rx Confirmed Last Taken Unknown] trazodone 50 mg tablet 50 mg PO QHS #90 tab 04/16/18 [Rx Confirmed 07/06/18 Last Taken Unknown] buspirone 10 mg tablet 15 mg PO BID #180 tab 04/23/18 [Rx Confirmed 07/05/18 Last Taken Unknown] Accu-Chek Softclix Lancets See Dose Instructions .ROUTE .MEDSUPPLY #200 each NS MDD Three times daily 04/25/18 [Rx Confirmed 07/05/18 Last Taken Unknown] catheter 16 Fr See Dose Instructions .ROUTE .MEDSUPPLY #12 each 05/15/18 [Rx Confirmed 07/05/18 Last Taken Unknown] blood sugar diagnostic strips See Dose Instructions .ROUTE .MEDSUPPLY #100 each 06/03/18 [Rx Confirmed 07/05/18 Last Taken Unknown] divalproex 250 mg tablet,delayed release 250 mg PO .COMPLEX 06/03/18 [History Confirmed 07/06/18 Last Taken Unknown] levothyroxine 75 mcg tablet 75 mcg PO QDAY #90 tab 06/03/18 [Rx Confirmed Last Taken Unknown] Prosvent PO BID 06/11/18 [History Confirmed 07/05/18 Last Taken Unknown] Citalopram Hydrobromide [Citalopram HBr] 40 mg PO DAILY 06/14/18 [History Confirmed 07/05/18 Last Taken Unknown] pen needle, diabetic 32 gauge x 5/32" See Dose Instructions .ROUTE .MEDSUPPLY # 200 each MDD QID 06/17/18 [Rx Confirmed 07/05/18 Last Taken Unknown] ondansetron 4 mg disintegrating tablet 4 mg PO BID-TID PRN #30 tab 07/04/18 [Rx Confirmed 07/06/18 Last Taken Unknown] Medical - DS: Hosp Hospital course: Mr. Greenberg is a 62 year old M Mr. Greenberg is a 62 year old M Who has been taking ibuprofen every day since procedure with Dr. Case several weeks ago. Patient to use [id number] ibuprofen, 4 tablets daily typically. Last Sunday night he threw up what appeared to be dark blood coffee ground in appearance. The next day saw his primary care provider patient was given Zofran and continue with good oral hydration, if unable to keep anything down to go to the ER. Next 2 days he was able to keep fluids down, however today he woke up a large dark bloody stool. Yesterday he also became so lightheaded that he passed out. Has been very weak lately. Denies any chest pain he has chronic cough and shortness of breath which is normal for him. He is to drink heavily he says he has not had any alcohol for 35 years. Does not recall ever being told he has varices. In the ER is evaluate his hemoglobin is 11.6 down from 14 a few days ago, BUN mildly up. Was found to be hypotensive in the 70s and given lactated Ringer boluses in the ER. Also found to have an elevated lactate. Patient complains of headaches lightheadedness weakness chills. Dr. Alberto contacted from the ED and will perform endoscopy 07/07 Duodenal ulcer noted and treated by EGD per Dr. Garcia last night. As well as esophagitis. Patient denies bleeding overnight. Feeling better. 07/08 Further bleeding, H&H stable, doing well, stable for discharge. Discharge diagnosis: GI bleed from peptic ulcer disease hypertension anemia syncope - Time Spent with Patient Total time spent providing and/or coordinating discharge services: Medical - DS: Exam - Constitutional Vitals: Vital Signs Temp Pulse Pulse Pulse Resp BP BP 07/07/18 11:10 98.5 F 16 07/07/18 09:05 97.4 F 16 07/07/18 08:55 97.2 F 16 07/07/18 08:45 97.0 F 16 07/07/18 07:24 97.5 F 16 07/07/18 06:39 139/93 07/07/18 04:30 114/65 07/07/18 04:00 97.3 F 16 120/67 07/07/18 03:30 95/56 07/07/18 03:00 111/64 07/07/18 02:30 119/69 07/07/18 02:00 110/67 07/07/18 01:30 104/64 07/07/18 01:00 105/69 07/07/18 00:30 97.8 F 16 96/57 07/07/18 00:00 104/68 07/06/18 23:30 98/57 07/06/18 23:12 07/06/18 23:00 111/69 07/06/18 22:30 100/63 07/06/18 22:00 90/61 07/06/18 21:45 94/61 07/06/18 21:30 97/62 07/06/18 21:15 94/61 07/06/18 21:00 114/63 07/06/18 20:45 112/73 07/06/18 20:30 123/67 07/06/18 20:15 119/68 07/06/18 20:00 99.0 F 24 H 105/73 07/06/18 19:51 77 07/06/18 19:45 131/82 07/06/18 19:40 138/82 07/06/18 19:12 97.9 F 69 70 16 139/84 07/06/18 18:55 75 16 124/78 07/06/18 18:12 98 F 72 16 120/77 07/06/18 18:01 122/77 07/06/18 17:01 120/81 07/06/18 16:01 101/61 07/06/18 16:00 98.3 F 18 101/61 07/06/18 15:01 119/69 07/06/18 14:55 114/69 07/06/18 14:33 07/06/18 14:00 68 16 120/82 07/06/18 13:31 77 120/82 07/06/18 13:25 71 107/81 07/06/18 13:21 107/61 07/06/18 13:19 93/59 07/06/18 13:15 98.7 F 68 74 18 79/47 107/81 07/06/18 13:01 68 16 93/59 07/06/18 12:58 64 21 81/39 07/06/18 12:46 68 20 79/47 07/06/18 12:31 68 29 H 84/43 07/06/18 12:18 72 20 99/58 07/06/18 12:01 66 21 84/58 07/06/18 11:52 69 26 H 07/06/18 11:46 66 24 H 90/59 BP Pulse Ox 07/07/18 11:10 106/66 98 07/07/18 09:05 131/74 99 07/07/18 08:55 109/57 100 07/07/18 08:45 115/74 99 07/07/18 07:24 139/93 98 07/07/18 06:39 98 07/07/18 04:30 97 07/07/18 04:00 96 07/07/18 03:30 94 07/07/18 03:00 95 07/07/18 02:30 96 07/07/18 02:00 07/07/18 01:30 07/07/18 01:00 95 07/07/18 00:30 94 07/07/18 00:00 93 07/06/18 23:30 93 07/06/18 23:12 93 07/06/18 23:00 95 07/06/18 22:30 96 07/06/18 22:00 96 07/06/18 21:45 95 07/06/18 21:30 96 07/06/18 21:15 97 07/06/18 21:00 98 07/06/18 20:45 98 07/06/18 20:30 97 07/06/18 20:15 93 07/06/18 20:00 95 07/06/18 19:51 94 07/06/18 19:45 97 07/06/18 19:40 93 07/06/18 19:12 99 07/06/18 18:55 96 07/06/18 18:12 98 07/06/18 18:01 100 07/06/18 17:01 07/06/18 16:01 07/06/18 16:00 99 07/06/18 15:01 92 07/06/18 14:55 07/06/18 14:33 96 07/06/18 14:00 99 07/06/18 13:31 100 07/06/18 13:25 100 07/06/18 13:21 07/06/18 13:19 07/06/18 13:15 99 07/06/18 13:01 100 07/06/18 12:58 100 07/06/18 12:46 100 07/06/18 12:31 98 07/06/18 12:18 100 07/06/18 12:01 98 07/06/18 11:52 97 07/06/18 11:46 99 Intake and Output 07/06/18 07/07/18 07/07/18 21:59 05:59 13:59 Intake Total 111 / 111 1050 / 1050 180 / 180 Output Total 700 / 700 1275 / 1275 400 / 400 Balance -589 / -589 -225 / -225 -220 / -220 Intake: IV 111 / 111 1000 / 1000 100 / 100 Sodium Chloride 0.9% 1,000 ml @ 1000 / 1000 100 mls/hr IV .Q10H [facility]ARROD Rx#: [id number] Sandostatin 500 Mcg In Sodium 91 / 91 Chloride 0.9% 499.5 ml @ 25 MCG /HR 25 mls/hr IV Q20H [facility]ARROD Rx#: [id number] Protonix 80 mg In Sodium 100 / 100 Chloride 0.9% 100 ml @ 8 MG/HR 10 mls/hr IV Q10H [facility]ARR[facility] Rx#: [id number] Oral 50 / 50 80 / 80 Output: Urine Catheter Amount 400 / 400 Void Amount 300 / 300 1275 / 1275 400 / 400 Other: Meal Breakfast Percent of Meal Consumed 100% Feeding Ability Independent Urine Appearance Clear Clear Urine Color Dark Yellow Dark Yellow Urine Odor Normal # Voids 1 2 Weight 74.888 kg Medical - DS: Data Labs on day of discharge: Labs from last 24 hours 07/07/18 07/07/18 07/06/18 03:42 03:42 20:00 WBC 3.2 L RBC 2.53 L Hgb 7.9 L 8.8 L Hct 23.2 L 26.9 L MCV 91.6 MCH 31.2 MCHC 34.1 RDW 14.7 H Plt Count 159 MPV 6.8 L Gran % 54.1 Lymph % (Auto) 34.2 [place] % (Auto) 9.1 Eos % (Auto) 2.2 Baso % (Auto) 0.4 Gran # 1.7 L Lymph # (Auto) 1.1 L [place] # (Auto) 0.3 Eos # (Auto) 0.1 Baso # (Auto) 0 POC PT POC INR VBG Lactic Acid Sodium 136 Potassium 4.0 Chloride 102 Carbon Dioxide 25 Anion Gap 9.0 BUN 14 Creatinine 0.6 L GFR Calculation 109 Glucose 49 L Uric Acid 6.8 Calcium 8.1 L Phosphorus 3.7 Magnesium 1.5 L Total Bilirubin 0.2 Direct Bilirubin < 0.2 GGT 10 AST 19 ALT 12 Alkaline Phosphatase 41 Lactate Dehydrogenase 133 Total Protein 4.8 L Albumin 2.1 L Globulin 2.7 Albumin/Globulin Ratio 0.8 L Triglycerides 89 07/06/18 07/06/18 07/06/18 14:00 14:00 11:36 WBC RBC Hgb 8.9 L Hct 25.8 L MCV MCH MCHC RDW Plt Count MPV Gran % Lymph % (Auto) [place] % (Auto) Eos % (Auto) Baso % (Auto) Gran # Lymph # (Auto) [place] # (Auto) Eos # (Auto) Baso # (Auto) POC PT 15.8 H POC INR 1.3 H VBG Lactic Acid 1.9 Sodium Potassium Chloride Carbon Dioxide Anion Gap BUN Creatinine GFR Calculation Glucose Uric Acid Calcium Phosphorus Magnesium Total Bilirubin Direct Bilirubin GGT AST ALT Alkaline Phosphatase Lactate Dehydrogenase Total Protein Albumin Globulin Albumin/Globulin Ratio Triglycerides Medical - DS: A/P - Patient/Caregiver Discharge Instructions Activity: increase activity as tolerated Diet: Consistent Carbohydrate Additional Instructions: Repeat EGD 3 months check status and 12 months Avoid NSAIDs. May use Tylenol Prescriptions: Pantoprazole [Protonix] 40 mg PO BIDAC #60 packet - Follow up Plan Follow up with: Nando Pretty DO [Primary Care Provider] - Kael Garcia MD [Physician] - Disposition: Home, Self-Care Prognosis: Fair Rehab Potential: Fair Medical - DS: Qual - VTE Deep Vein Thrombosis/Pulmonary Embolism Present on Admission: No
[2018-07-07] MEDS: INSULIN LISPRO 1 UNIT/0.01 ML UNIT SQ SCH ×3 (11:48→20:55)
[2018-07-07] MEDS: PANTOPRAZOLE 40 MG PACKET PO SCH (17:06)
[2018-07-07] MEDS ORDERED: NICOTINE 7 MG PATCH TOPICAL ONE (18:50)
[2018-07-07] MEDS: NORTRIPTYLINE 10 MG CAPSULE PO SCH (20:54)
[2018-07-07] MEDS: traZODone HCL 50 MG TABLET PO SCH (20:55)
[2018-07-08 05:38] LABS: Basophils # (Auto) 0 K/mcL (0.0-0.3); Basophils % (Auto) 0.6 % (0.0-2.0); Eosinophils # (Auto) 0.1 K/mcL (0.0-0.7); Eosinophils % (Auto) 1.9 % (0.0-7.0); Granulocytes % (Auto) 53.7 % (38.0-78.0); Lymphocytes # (Auto) 0.9 K/mcL (1.5-4.8); Mean Cell Volume 89.3 fL (80.0-100.0); Mean Corpuscular HGB Conc 33.9 g/dL (31.0-36.0); Mean Corpuscular Hemoglobin 30.3 pg (26.0-34.0); Monocytes # (Auto) 0.2 K/mcL (0.1-0.9); Monocytes % (Auto) 8.8 % (1.0-12.0); Platelet Count 173 K/mcL (140-440); RBC 2.93 M/mcL (4.50-5.90); Red Cell Distribution Width 14.4 % (11.5-14.5)
[2018-07-08] MEDS: 0.9 % SODIUM CHLORIDE 10 ML SYRINGE IV SCH (05:43)
[2018-07-08 05:58] LABS: ALT/SGPT 12 U/l (0-40); Albumin 2.2 gm/dL (3.2-5.2); Albumin/Globulin Ratio 0.8 (1.0-2.3); Alkaline Phosphatase 38 U/L (39-117); Bilirubin,Direct < 0.2 mg/dL (0.0-0.3); Blood Urea Nitrogen 8 mg/dl (6-20); Gamma Glutamyl Transpeptidase 13 U/L (8-61); Uric Acid 6.9 mg/dL (2.5-8.0)
[2018-07-08] MEDS ORDERED: MAGNESIUM OXIDE 400 MG TABLET PO ONE (07:00)
--- NOTE | 2018-07-08 07:12 | Operative Note ---
DATE OF OPERATION: 07/06/2018 PREPROCEDURE DIAGNOSIS: Upper GI bleed secondary to ulcers caused by ibuprofen or possibly from esophageal varices. POSTPROCEDURE DIAGNOSES: 1. Upper GI bleed secondary to duodenal ulcer. 2. Duodenal ulcer in the bulb, source of bleeding. 3. Esophagitis. PROCEDURE: Esophagogastroduodenoscopy with control of bleeding and biopsies from antrum for histopathology and CLOtest. INSTRUMENT USED: Olympus MANUEL [id number] endoscope. SPECIMENS OBTAINED: Biopsies from antrum for CLOtest and histopathology. CLOtest RESULTS: negative INDICATIONS: The patient is a 62-year-old gentleman whose primary care physician is Dr. Nando Pretty. The patient thought he had flu-like symptoms. He was taking ibuprofen. The last 3 days he has vomited some blood. Today he has had some melena. He did consume alcohol in the past but has not had alcohol for 5 years. His blood pressure when he hit the emergency department was about 70 systolic over some undetermined diastolic. He did have 2 liters of fluid. His blood pressure increased and then decreased some. Now shortly before the exam the blood pressure is about 122/70-some. The patient's BUN was only 20 to 24, which suggests the bleeding is either low in volume or fairly acute. Endoscopy was indicated. Because of the slight possibility of esophageal varices that are bleeding I did ask for an octreotide drip. The patient has also received IV Protonix. INFORMED CONSENT: The procedure was reviewed with the patient. The patient had no further questions and accepts the risks and benefits thereof. One of the risks that were discussed included . Additional risks that were also discussed included bleeding, reaction to medication, possible perforation and possible need for surgery. IV MEDICATIONS USED: Versed 2 and propofol 200. FINDINGS: ESOPHAGUS: Proximal and mid esophagus normal. DISTAL ESOPHAGUS: The last 5 cm had scattered areas of erythema. There was some questionably prominent veins; no definite varices were seen. No biopsies were taken. EG junction was around 39 cm. Questionable erythema noted. Questionable edema noted. STOMACH: Cardia, fundus, body and antrum normal. Biopsies were taken from the antrum for CLOtest and histopathology to check for Helicobacter. PYLORUS: Normal. DUODENUM: In the duodenal bulb, there was a 1.25 cm +/- ulcer. This did have a clot; also pigmented protuberance. There was some blood noted, but not much active bleeding. This area was treated with about 13 mL of hypertonic saline/epinephrine. There was some increased bleeding precipitated for a while. Heater probe was used. The bleeding seems to be under good control. One clip was placed. Descending limb of the duodenum appeared normal. RECOMMENDATIONS: I believe we can stop the octreotide. We should continue the PPI medication IV for a while and then p.o. today. I could allow sips of water and ice chips in the morning if the hemoglobin is fairly stable and the patient has not shown signs of continued bleeding. A clear liquid diet could be started. This could be advanced to full liquid diet as tolerated. PPI medication eventually should be changed to p.o. I would recommend a follow-up EGD to evaluate status of healing in about 3 months. In about a year from that time I would recommend another EGD to evaluate for possible varices. The patient should avoid nonsteroidal anti-inflammatory drugs. If, however, he does feel that they are important to take he should take a PPI medication every day. He also takes a nonsteroidal anti-inflammatory drug. SEDATION TIME: 18:20 to 18:59. Please refer to the preprocedure nurse's notes, procedure flowsheet, procedure record, and post-procedure assessment for details of the sedation including the pre-, intra-, and post-service work. [email or web address] Job ID: [id number] Doc ID: [id number] Kael URBANO
[2018-07-08] MEDS ORDERED: MAGNESIUM SULFATE 2 GM/50 ML BAG IV PRN (07:36)
[2018-07-08] MEDS: LEVOTHYROXINE 75 MCG TABLET PO SCH (07:36)
[2018-07-08] MEDS: INSULIN LISPRO 1 UNIT/0.01 ML UNIT SQ SCH (07:37)
[2018-07-08] MEDS: PANTOPRAZOLE 40 MG PACKET PO SCH (07:37)
[2018-07-08] MEDS ORDERED: POTASSIUM PHOSPHATE 20 MEQ in DEXTROSE 5% IN WATER 250 ML IV PRN (07:37)
[2018-07-08] MEDS ORDERED: POTASSIUM CHLORIDE 40 MEQ in DEXTROSE 5% IN WATER 500 ML IV PRN (07:38)
[2018-07-08] MEDS: TAMSULOSIN 0.4 MG CAPSULE PO SCH (08:26)
[2018-07-08] MEDS: METOPROLOL TARTRATE 25 MG TABLET PO SCH (08:26)
[2018-07-08] MEDS: DIVALPROEX SODIUM 250 MG TAB.ER.24H PO SCH (08:27)
[2018-07-08] MEDS: FINASTERIDE 5 MG TABLET PO SCH (08:27)
[2018-07-08] MEDS: INSULIN GLARGINE, HUMAN 1 UNIT/0.01 ML SQ SCH (08:27)
--- NOTE | 2018-07-08 12:02 | Surgical Pathology Report ---
HISTOLOGY SPECIMEN MICROSCOPIC DIAGNOSIS STOMACH, BIOPSY: -- CHRONIC GASTRITIS, MILD, WITHOUT ACTIVITY. -- NO HELICOBACTER ORGANISMS IDENTIFIED ON ALCIAN YELLOW STAIN (ADEQUATE TECHNICAL CONTROL). (DMT:[email or web address]) CLINICAL HISTORY Upper GI bleed, vomited red blood; melena; used Ibuprofen for flu like symptoms. PROCEDURAL IMPRESSION Gastritis, rule out H. pylori; upper GI bleed secondary to duodenal ulcer; esophagitis. GROSS DESCRIPTION Received in formalin labeled gastritis ?H. pylori, are two fragments of schaefer mucosal tissue with maximum dimensions of 0.2 and 0.5 cm. Entirely submitted in one cassette. (RLF:adj) Electronically Signed by: Angelito Chavez M.D.
== END 2018-07-08 10:59 | disposition home or self-care (01) | DRG 378 ==
LOC: ED 08:31 → ICU 13:15
PROVIDERS: ADMIT Internal Medicine; ATTEND Internal Medicine
CPT/HCPCS: 80047; 85014; 99223; 99231; 99238; J0171; J1815; J1817; J2250; J2354; J2405; J7030; J7040; J7050; J7120; L0140

== ENCOUNTER 2020-06-15 10:55 | Inpatient (IN) ==
[2020-06-15] MEDS ORDERED: IOPAMIDOL 100 ML BOTTLE IV ONE ×2 (10:56→16:10)
[2020-06-15] MEDS ORDERED: 0.9 % SODIUM CHLORIDE 1,000 ML IV ONE (11:12)
--- NOTE | 2020-06-15 11:32 | Emergency Department Note ---
Weakness HPI General Chief complaint: Weakness Stated complaint: weakness Time Seen by Provider: 06/15/20 11:00 Mode of arrival: ambulatory Limitations: other (Patient appears frail and weak. Very thin.) History of Present Illness HPI Narrative: Patient reports shortness of breath and weakness over the past few days. He was checked for COVID on the and was negative. Patient has had a little weight loss over the past year and cannot gain weight. States that he has no appetite for food and a lack of taste. His discussed that he was recently placed on a depression medication. She reports that since he has started taking this medication he has become quite talkative. He has a history of alcoholism but has not drank in 5 years he reports. Related Data Home Medications Medication Instructions Recorded Confirmed lactobacillus combination no.8 3 3,000 mmu cells PO QDAY 04/06/20 05/25/20 billion cell capsule vitamin B complex 1 tab PO QDAY 04/06/20 05/25/20 acetaminophen-codeine 1 tab PO Q8HP PRN 06/15/20 06/15/20 furosemide 20 mg PO QAM 06/15/20 06/15/20 levothyroxine 75 mcg PO QAMAC 06/15/20 06/15/20 metformin 1,000 mg PO BIDCC 06/15/20 06/15/20 mirtazapine 15 mg PO QHS 06/15/20 06/15/20 Previous Rx's Medication Instructions Recorded pantoprazole 40 mg tablet,delayed 40 mg PO QDAY #90 tab 07/24/19 release fluticasone propionate 50 1 spray INTRANASAL QDAY #18.2 ml 08/27/19 mcg/actuation nasal spray,suspension loratadine 10 mg tablet 10 mg PO QDAY #90 tab 08/27/19 glipizide 10 mg tablet 10 mg PO QDAY #90 tab 09/30/19 pravastatin 40 mg tablet 40 mg PO QHS #90 tab 09/30/19 dicyclomine 20 mg tablet 20 mg PO TID #90 tab 01/12/20 tamsulosin 0.4 mg capsule 0.4 mg PO QDAY #30 cap 03/03/20 divalproex 500 mg tablet,delayed 1,000 mg PO QHS #60 tab 05/12/20 release sertraline 50 mg tablet See Rx Instructions .ROUTE 06/15/20 .COMPLEX #21 tab Allergies Allergy/AdvReac Type Severity Reaction Status Date / Time insulin glargine AdvReac Mild Itching, Verified 06/15/20 15:33 [From Pema Birch] Rash venlafaxine [From Effexor] AdvReac Mild Itching Verified 06/15/20 11:01 Review of Systems ROS ROS Narrative: Narrative: Constitutional: Reports weakness and weight change; Denies fever and chills Eyes: Denies eye discharge ENT ED: Denies congestion and dysphagia Cardiovascular: Reports dyspnea on exertion and edema (Chronic both feet.); Denies chest pain and palpitations Respiratory: Reports shortness of breath, cough and wheezes; Denies phlegm Gastrointestinal: Denies abdominal pain, nausea and vomiting Genitourinary: Denies dysuria Musculoskeletal: Reports joint pain Integumentary: Denies rash Neurological: Reports confusion (Does report difficulty thinking today.); Denies numbness Psychiatric: Reports anxiety and depression Endocrine: Reports fatigue Hematological/Lymphatic: Denies easy bleeding Allergic/Immunologic: Denies facial swelling PFSH Narrative Patient History Narrative: Narrative: Medical/Surgical/Family History All Active Problems (Updated 06/15/20 @ 18:29 by LENA Horowitz) Pneumonia (Acute) Malignancy (Acute) Chronic pain (Acute) Cervicalgia (Acute) Cervical radiculopathy (Acute) Cervical disc disease (Acute) Acromioclavicular joint arthritis (Acute) Large bowel perforation (Acute) Pedal edema (Acute) Bipolar disorder (Acute) Shoulder pain (Acute) Urinary retention due to benign prostatic hyperplasia (Acute) BPH (benign prostatic hyperplasia) (Acute) Urinary retention (Acute) GI bleed (Acute) Hypoglycemia (Acute) Adenomatous colon polyp (Chronic) Cervical radicular pain (Chronic) Left shoulder pain (Acute) Neck pain (Chronic) Irritable bowel syndrome with diarrhea (Chronic) Alcoholism (Chronic) Hypertension (Chronic) Sleep apnea (Chronic) Encounter for medication refill (Acute) Right ankle pain (Acute) Elevated PSA (Acute) Urinary tract infection (Acute) Headache (Acute) Change in vision (Acute) Patellofemoral syndrome of left knee (Acute) Diabetes type 2, uncontrolled (Chronic) Hyperlipidemia associated with type 2 diabetes mellitus (Chronic) Diabetes mellitus (Chronic) Erectile dysfunction (Chronic) Depression (Chronic) 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) History of ERCP (Chronic) Urinary retention (Chronic) Ulnar nerve compression (Chronic) Pancreatitis (Chronic) Neoplasm of uncertain behavior of skin (Chronic) Memory loss (Chronic) Insomnia due to mental disorder (Chronic) Hypertension, essential (Chronic) Dyspepsia (Chronic) Major depressive disorder, recurrent episode, in full remission (Chronic) Carpal tunnel syndrome (Chronic) Cardiac dysrhythmia (Chronic) Benign prostatic hyperplasia with urinary obstruction (Chronic) Benign neoplasm with pluriglandular involvement (Acute) Bipolar I disorder, most recent episode (or current) depressed, in partial or unspecified remission (Chronic) Anxiety disorder (Acute) Anemia (Chronic) Alcohol abuse, continuous (Chronic) Medical History Alcohol abuse, continuous (Chronic) last drink 2 weeks ago, not on antabuse any more. Alcoholism (Chronic) Anemia (Chronic) Anxiety disorder (Acute) Benign neoplasm with pluriglandular involvement (Acute) Benign prostatic hyperplasia with urinary obstruction (Chronic) Bipolar I disorder, most recent episode (or current) depressed, in partial or unspecified remission (Chronic) Cardiac dysrhythmia (Chronic) Carpal tunnel syndrome (Chronic) 02/03/2015-[place], bilateral Cervical radiculopathy (Acute) Cervicalgia (Acute) Chronic pain (Acute) Depression (Chronic) Diabetes mellitus (Chronic) Dyspepsia (Chronic) Encephalopathy (Resolved) 09/25/2014-[facility]- Hypoxic Erectile dysfunction (Chronic) on viagra 100mg, not seem to be working, wants to try jorgito garcia prescribe same, pt aware may not be covered by insurance. 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 on flomax, follows with Urology, Dr Case Urinary tract infection (Acute) Weight loss (Resolved) workup neg, weight loss is now reversed, monitor. Surgical History Colonoscopy planned (Resolved) 09/06/2015 [facility]- Dr. Garcia History of carpal tunnel release (Acute) History of colonoscopy (Chronic 08/18/19) History of ERCP (Chronic) 02/04/2013,11/24/2013 History of prostate biopsy (Inactive) Squamous cell carcinoma (Inactive) Removed, right nostril area Family History Father , age 58 Malignant neoplasm of brain Grandfather (Maternal) Type 2 diabetes mellitus Unknown No history of heart disease Sister Hypertension Social History Smoking Status: Current every day smoker Alcohol Intake Frequency: former alcohol drinker Substance Use: marijuana Exam Narrative Narrative: Patient arrives appearing very thin and stating weight loss. Denies nausea. Patient left for x-ray his sister described that he has not been eating and deals with depression. She believes he may be anorexic or bulimic. General Limitations: other (Patient appears frail and weak. Very thin.) General appearance: Present alert and malaise; Absent appears intoxicated and sleepy Head Head: Present atraumatic and normocephalic Eye Eye: Present normal appearance, PERRL and EOMI; Absent scleral icterus and nystagmus ENT ENT: Present normal exam Neck Neck: Present normal inspection and full ROM Chest Chest: Present symmetric chest wall rise; Absent tenderness Respiratory Respiratory: Present other (Absent lung sounds left chest and spots. Wheezes) Cardiovascular Cardiovascular: Present tachycardia, normal heart sounds, +S1 and +S2 Adbominal Abdominal: Present soft; Absent guarding Extremities Extremities: Present full ROM and normal capillary refill Back Back: Absent CVA tenderness (R) and CVA tenderness (L) Neurological Neurological: Present alert and oriented X3 Psychiatric Psychiatric: Present normal affect Skin Skin: Present warm and dry Course Course Course Narrative: X-ray shows a large infiltrate. I had intended on treating it as pneumonia and beginning with antibiotics. Dementia called me and inform me that a chest CT was required due to the x-ray appearance of this infiltrate. Reevaluation(s) Reevaluation #1: CT indicates that the patient should have a biopsy performed. Dr. wallace said he would do this tomorrow. I begin antibiotics due to the white count (see labs). I had also put in a bed request had this patient admitted here tonight for the treatment of pneumonia and hold for further biopsy and further referral for specialties pending results of biopsy. Vital Signs Vital signs: Vital Signs Temperature 97.5 F 06/15/20 10:56 Pulse Rate 133 H 06/15/20 10:56 Respiratory Rate 23 H 06/15/20 10:56 Pulse Oximetry (%) 100 06/15/20 10:56 Temperature 98.2 F 06/15/20 16:11 Pulse Rate 89 06/15/20 17:06 Respiratory Rate 18 06/15/20 17:06 Blood Pressure 92/57 06/15/20 17:06 Pulse Oximetry (%) 98 06/15/20 17:06 MDM MDM Narrative Medical decision making narrative: I noticed a pneumonia on the left lung of this patient's x-ray. Will draw blood cultures lactic acid. Plan to administrate antibiotics to treat this pneumonia. Lab Data Result diagrams: 06/15/20 11:28 06/15/20 11:32 Labs: Lab Results 06/15/20 06/15/20 06/15/20 Range/Units 10:32 10:32 10:32 WBC (4.50-11.00) K/mcL RBC (4.63-6.08) M/mcL Hgb (13.7-17.5) g/dL Hct (40.1-51.0) % POC Hct (41.0-55.0) % MCV (80.0-100.0) fL MCH (26.0-34.0) pg MCHC (31.0-36.0) g/dL RDW (11.5-14.5) % Plt Count (140-440) K/mcL MPV (7.4-10.4) fL Gran % (38.0-78.0) % Lymph % (Auto) (15.5-49.0) % Traill % (Auto) (1.0-12.0) % Eos % (Auto) (0.0-7.0) % Baso % (Auto) (0.0-2.0) % Gran # (1.80-8.00) K/mcL Lymph # (Auto) (1.50-4.80) K/mcL Traill # (Auto) (0.10-0.90) K/mcL Eos # (Auto) (0.00-0.70) K/mcL Baso # (Auto) (0.00-0.30) K/mcL Differential Comment VBG Lactic Acid (0.5-2.0) mmol/L POC Sodium (133-145) mmol/L Sodium (133-145) mmol/L POC Potassium (3.3-5.1) mmol/L Potassium (3.3-5.1) mmol/L POC Chloride (96-108) mmol/L Chloride (96-108) mmol/L Carbon Dioxide (22-30) mmol/L POC Total CO2 (22-30) mmol/L Anion Gap (8-16) POC BUN (8-23) mg/dl BUN (8-23) mg/dl Creatinine (0.7-1.2) mg/dl POC Creatinine (0.7-1.2) mg/dl GFR Calculation Glucose (70-105) mg/dL POC Glucose (70-105) mg/dL Calcium (8.6-10.4) mg/dl POC WB Ioniz Calcium (1.16-1.32) mmol/L Total Bilirubin (0.0-1.0) mg/dL AST (0-37) U/l ALT (0-40) U/l Alkaline Phosphatase (39-117) U/L Troponin T < 0.01 (0-0.03) ng/ml NT-Pro-B Natriuret Pep 2728.0 H (0-125) pg/ml Total Protein (5.9-8.4) gm/dL Albumin (3.2-5.2) gm/dL Globulin (2.2-3.7) gm/dL Albumin/Globulin Ratio (1.0-2.3) Procalcitonin 3.42 (<0.10) ng/mL Urine Color Urine Appearance Urine pH (5.0-9.0) Ur Specific Bristow (1.000-1.035) Urine Protein (NEG) mg/dL Urine Glucose (UA) (NEG) mg/dL Urine Ketones (NEG) mg/dL Urine Occult Blood (<0.03) mg/dL Urine Nitrate (NEG) Urine Bilirubin (NEG) mg/dL Urine Urobilinogen (NEG) mg/dL Ur Leukocyte Esterase (NEG) /uL Ethyl Alcohol (<0.010) gm/dl 06/15/20 06/15/20 06/15/20 Range/Units 11:28 11:28 11:32 WBC 23.8 H (4.50-11.00) K/mcL RBC 4.01 L (4.63-6.08) M/mcL Hgb 12.0 L (13.7-17.5) g/dL Hct 33.7 L (40.1-51.0) % POC Hct 43.0 (41.0-55.0) % MCV 84.0 (80.0-100.0) fL MCH 29.9 (26.0-34.0) pg MCHC 35.6 (31.0-36.0) g/dL RDW 14.7 H (11.5-14.5) % Plt Count 149 (140-440) K/mcL MPV 9.7 (7.4-10.4) fL Gran % 94.7 H (38.0-78.0) % Lymph % (Auto) 0.8 L (15.5-49.0) % Traill % (Auto) 3.8 (1.0-12.0) % Eos % (Auto) 0.1 (0.0-7.0) % Baso % (Auto) 0.6 (0.0-2.0) % Gran # 22.56 H (1.80-8.00) K/mcL Lymph # (Auto) 0.18 L (1.50-4.80) K/mcL Traill # (Auto) 0.91 H (0.10-0.90) K/mcL Eos # (Auto) 0.03 (0.00-0.70) K/mcL Baso # (Auto) 0.14 (0.00-0.30) K/mcL Differential Comment Comment VBG Lactic Acid (0.5-2.0) mmol/L POC Sodium 127 L (133-145) mmol/L Sodium 127 L (133-145) mmol/L POC Potassium 3.3 (3.3-5.1) mmol/L Potassium 3.5 (3.3-5.1) mmol/L POC Chloride 90 L (96-108) mmol/L Chloride 88 L (96-108) mmol/L Carbon Dioxide 19 L (22-30) mmol/L POC Total CO2 23 (22-30) mmol/L Anion Gap 20.0 H (8-16) POC BUN 22 (8-23) mg/dl BUN 22 (8-23) mg/dl Creatinine 0.7 (0.7-1.2) mg/dl POC Creatinine 0.8 (0.7-1.2) mg/dl GFR Calculation 101 Glucose 19 L* (70-105) mg/dL POC Glucose 23 L* (70-105) mg/dL Calcium 10.1 (8.6-10.4) mg/dl POC WB Ioniz Calcium 1.11 L (1.16-1.32) mmol/L Total Bilirubin 0.5 (0.0-1.0) mg/dL AST 51 H (0-37) U/l ALT 42 H (0-40) U/l Alkaline Phosphatase 129 H (39-117) U/L Troponin T (0-0.03) ng/ml NT-Pro-B Natriuret Pep (0-125) pg/ml Total Protein 6.3 (5.9-8.4) gm/dL Albumin 2.6 L (3.2-5.2) gm/dL Globulin 3.7 (2.2-3.7) gm/dL Albumin/Globulin Ratio 0.7 L (1.0-2.3) Procalcitonin (<0.10) ng/mL Urine Color Urine Appearance Urine pH (5.0-9.0) Ur Specific Bristow (1.000-1.035) Urine Protein (NEG) mg/dL Urine Glucose (UA) (NEG) mg/dL Urine Ketones (NEG) mg/dL Urine Occult Blood (<0.03) mg/dL Urine Nitrate (NEG) Urine Bilirubin (NEG) mg/dL Urine Urobilinogen (NEG) mg/dL Ur Leukocyte Esterase (NEG) /uL Ethyl Alcohol < 0.010 (<0.010) gm/dl 06/15/20 06/15/20 Range/Units 11:58 15:25 WBC (4.50-11.00) K/mcL RBC (4.63-6.08) M/mcL Hgb (13.7-17.5) g/dL Hct (40.1-51.0) % POC Hct (41.0-55.0) % MCV (80.0-100.0) fL MCH (26.0-34.0) pg MCHC (31.0-36.0) g/dL RDW (11.5-14.5) % Plt Count (140-440) K/mcL MPV (7.4-10.4) fL Gran % (38.0-78.0) % Lymph % (Auto) (15.5-49.0) % Traill % (Auto) (1.0-12.0) % Eos % (Auto) (0.0-7.0) % Baso % (Auto) (0.0-2.0) % Gran # (1.80-8.00) K/mcL Lymph # (Auto) (1.50-4.80) K/mcL Traill # (Auto) (0.10-0.90) K/mcL Eos # (Auto) (0.00-0.70) K/mcL Baso # (Auto) (0.00-0.30) K/mcL Differential Comment VBG Lactic Acid 3.1 H (0.5-2.0) mmol/L POC Sodium (133-145) mmol/L Sodium (133-145) mmol/L POC Potassium (3.3-5.1) mmol/L Potassium (3.3-5.1) mmol/L POC Chloride (96-108) mmol/L Chloride (96-108) mmol/L Carbon Dioxide (22-30) mmol/L POC Total CO2 (22-30) mmol/L Anion Gap (8-16) POC BUN (8-23) mg/dl BUN (8-23) mg/dl Creatinine (0.7-1.2) mg/dl POC Creatinine (0.7-1.2) mg/dl GFR Calculation Glucose (70-105) mg/dL POC Glucose (70-105) mg/dL Calcium (8.6-10.4) mg/dl POC WB Ioniz Calcium (1.16-1.32) mmol/L Total Bilirubin (0.0-1.0) mg/dL AST (0-37) U/l ALT (0-40) U/l Alkaline Phosphatase (39-117) U/L Troponin T (0-0.03) ng/ml NT-Pro-B Natriuret Pep (0-125) pg/ml Total Protein (5.9-8.4) gm/dL Albumin (3.2-5.2) gm/dL Globulin (2.2-3.7) gm/dL Albumin/Globulin Ratio (1.0-2.3) Procalcitonin (<0.10) ng/mL Urine Color Yellow Urine Appearance Clear Urine pH 6.0 (5.0-9.0) Ur Specific Bristow 1.045 H (1.000-1.035) Urine Protein Neg (NEG) mg/dL Urine Glucose (UA) Negative (NEG) mg/dL Urine Ketones Neg (NEG) mg/dL Urine Occult Blood Neg (<0.03) mg/dL Urine Nitrate Neg (NEG) Urine Bilirubin Neg (NEG) mg/dL Urine Urobilinogen Neg (NEG) mg/dL Ur Leukocyte Esterase Neg (NEG) /uL Ethyl Alcohol (<0.010) gm/dl Discharge Plan Patient/Caregiver Discharge Instructions Pt seen by REEFER ENGINEER/PA only: Yes Clinical Impression: Malignancy Pneumonia Qualifiers: Pneumonia type: due to unspecified organism Laterality: left Lung location: unspecified part of lung Qualified Code(s): J18.9 - Pneumonia, unspecified organism Patient Disposition: Xfer As Inpt ([facility]) Condition: Fair Discharge Date/Time: 06/15/20 16:11
[2020-06-15 11:43] LABS: POC Blood Urea Nitrogen 22 mg/dl (8-23); POC CO2 23 mmol/L (22-30); POC Calcium, Ionized 1.11 mmol/L (1.16-1.32); POC Chloride 90 mmol/L (96-108); POC Creatinine 0.8 mg/dl (0.7-1.2); POC Glucose, Random 23 mg/dL (70-105); POC Potassium 3.3 mmol/L (3.3-5.1); POC Sodium 127 mmol/L (133-145)
[2020-06-15] MEDS ORDERED: DEXTROSE 50% 50 ML SYRINGE IV ONE (11:47)
--- NOTE | 2020-06-15 12:15 | XRay Report ---
CLINICAL INFORMATION: weakness COMPARISON: 01/07/2019 and 07/06/2018 FINDINGS: Heart is normal in size configuration. Moderate mixed interstitial/alveolar infiltrate has developed in the left upper lobe. The hilar regions are enlarged likely reflecting pulmonary hypertension related to COPD. The left hilum is asymmetrically enlarged: The possibility of an underlying mass in this region should be entertained. Probable nipple shadow overlies right lateral base. No effusion IMPRESSION: Moderate size left upper lobe infiltrate. Asymmetric enlargement of the left hilum likely reflecting pulmonary hypertension related to COPD. Left hilar mass possibly representing pulmonary malignancy is not excluded. Consider chest CT Interpreted and Authenticated by: Nando Gavin 06/15/20
[2020-06-15] MEDS ORDERED: AZITHROMYCIN 500 MG in DEXTROSE 5% IN WATER 250 ML IV ONE (12:16)
[2020-06-15] MEDS ORDERED: cefTRIAXone 1 GM VIAL IV ONE (12:16)
[2020-06-15 13:02] LABS: Alcohol, Blood < 10.0 mg/dL (<10); Alcohol,Blood < 0.010 gm/dl (<0.010); Basophils # (Auto) 0.14 K/mcL (0.00-0.30); Basophils % (Auto) 0.6 % (0.0-2.0); Eosinophils # (Auto) 0.03 K/mcL (0.00-0.70); Eosinophils % (Auto) 0.1 % (0.0-7.0); Granulocytes % (Auto) 94.7 % (38.0-78.0); Hematocrit 33.7 % (40.1-51.0); Lymphocytes # (Auto) 0.18 K/mcL (1.50-4.80); Lymphocytes % (Auto) 0.8 % (15.5-49.0); Mean Corpuscular HGB Conc 35.6 g/dL (31.0-36.0); Mean Platelet Volume 9.7 fL (7.4-10.4); Monocytes # (Auto) 0.91 K/mcL (0.10-0.90); Monocytes % (Auto) 3.8 % (1.0-12.0); Platelet Count 149 K/mcL (140-440); RBC 4.01 M/mcL (4.63-6.08); Red Cell Distribution Width 14.7 % (11.5-14.5); WBC 23.8 K/mcL (4.50-11.00)
[2020-06-15 13:04] LABS: ALT/SGPT 42 U/l (0-40); AST/SGOT 51 U/l (0-37); Albumin 2.6 gm/dL (3.2-5.2); Albumin/Globulin Ratio 0.7 (1.0-2.3); Alkaline Phosphatase 129 U/L (39-117); Bilirubin,Total 0.5 mg/dL (0.0-1.0); Blood Urea Nitrogen 22 mg/dl (8-23); Calcium 10.1 mg/dl (8.6-10.4); Carbon Dioxide 19 mmol/L (22-30); Chloride 88 mmol/L (96-108); Globulin 3.7 gm/dL (2.2-3.7); Glomerular Filtration Rate 101; Glucose 19 mg/dL (70-105)
--- NOTE | 2020-06-15 14:04 | Cat Scan Report ---
CLINICAL INFORMATION: Left lower lobe pneumonia. Possible left hilar mass. History of smoking COMPARISON: Chest CT 12/10/2018 and 08/30/2012 TECHNIQUE: 80 cc of Isovue-370 were injected intravenously, and 25 seconds later, 0.625 mm helical slices were obtained from the lung apices through the bases. Following reconstruction, 2.5 mm sagittal, coronal and axial reformations were processed and reviewed at lung, mediastinal and bone windows. 7 mm axial MIPS were also obtained to optimize pulmonary nodule detection. The exam was performed using radiation dose optimization techniques including, but not limited to, automated exposure control, adjustment of the mA and/or kV according to patient size and use of iterative reconstruction technique. FINDINGS: Pulmonary parenchymal windows show severe centrilobular emphysema featuring chronic bronchitis with elevated lung volumes wall thickening/dilatation of bronchi and multiple bullae dominating the upper lobes with a few scattered throughout the right middle and both lower lobes. A large alveolar infiltrate has developed throughout most of the left upper lobe with scattered air-fluid levels within pre-existing bullae. Increased soft tissue density in the left hilum, contiguous with the trainee, has resulted in encasement and narrowing of the anterior segment left upper lobe bronchus and pulmonary artery. This is highly suggestive of underlying primary pulmonary malignancy. Mildly enlarged lymph nodes throughout the remainder of both hilum and the lower mediastinal region. The pulmonary arteries are well-opacified - no evidence of embolus. Thoracic aorta is normal diameter. The heart is normal in size and configuration with scattered atherosclerotic plaque in the coronary arteries. Esophagus is grossly normal. Bone windows show a 5 cm osteolytic lesion lesion destroying the right posterior T5 vertebral body, right pedicle, superior and inferior facets, right lamina with extension into the the inferior right T4 facet and right vertebral body. It severely encroaches upon the central canal markedly impinging the thoracic cord. Both the right T4-5 and T5-6 IV foramen are obliterated by soft tissue. It is suspicious for a solitary osseous metastasis. No other lytic lesions seen throughout the thoracic skeleton Images should the superior abdomen show very heavy calcification throughout the pancreatic parenchyma compatible known chronic pancreatitis - no evidence of active pancreatic inflammation. The visualized liver, spleen, kidneys and adrenal glands are grossly normal. IMPRESSION: 1. Suspect 4 cm left hilar mass encasing and narrowing the anterior segment left upper lobe bronchus and pulmonary artery. A large postobstructive alveolar infiltrate throughout most of the right upper lobe shows fluid within pre-existing bullae compatible with bullous infection. Mildly enlarged lymph nodes in the hilar and lower mediastinal regions may be reactive or metastatic. 2. Severe centrilobular emphysema. 3. 5 cm osteolytic lesion destroying the right T5 vertebral body, pedicle lamina and the adjacent facets. It does encroach upon the central canal severely compressing the thoracic cord. This also obliterates the exiting right T4 and T5 nerve roots within the right T4-5 and T5-6 foramen. It is suspicious for metastasis from lung cancer Suggest: CT-guided biopsy of large T5 osteolytic metastases for tissue diagnosis. The patient will likely require both medical oncology and radiation oncology referrals to radiate the thoracic spine metastases. Interpreted and Authenticated by: Nando Gavin 06/15/20
[2020-06-15] MEDS ORDERED: DEXTROSE 5%-1/2NS W/20MEQ KCL 1,000 ML IV SCH ×2 (14:30→16:10)
[2020-06-15] MEDS ORDERED: ONDANSETRON 4 MG/2 ML VIAL IV PRN ×2 (15:11→16:10)
[2020-06-15] MEDS ORDERED: IPRATROPIUM/ALBUTEROL 3 ML AMPUL.NEB NEB PRN (15:11)
[2020-06-15] MEDS ORDERED: morphine 2 MG/ML VIAL IV PRN ×2 (15:11→16:10)
[2020-06-15] MEDS ORDERED: NALOXONE HCL 0.4 MG/ML VIAL IV PRN ×2 (15:11→16:10)
[2020-06-15] MEDS ORDERED: LACTULOSE 20 GM/30 ML ORAL.SOL PO PRN ×2 (15:11→16:10)
[2020-06-15] MEDS ORDERED: DEXTROSE 50% 50 ML VIAL IV PRN ×2 (15:23→16:10)
[2020-06-15] MEDS ORDERED: traMADol 50 MG TABLET PO PRN ×2 (15:23→16:10)
[2020-06-15] MEDS ORDERED: DEXTROSE 31 GM ORAL.SUSP PO PRN ×2 (15:23→16:10)
[2020-06-15] MEDS ORDERED: PIPERACILLIN SODIUM/TAZOBACTAM 3.375 GM in DEXTROSE 5% IN WATER 50 ML IV SCH (15:30)
[2020-06-15] MEDS ORDERED: DEXTROSE 5%-NS 1,000 ML IV SCH (15:30)
[2020-06-15 15:57] LABS: Appearance,Urine CLEAR; Bilirubin,Urine NEG (NEG); Color,Urine YELLOW; Glucose,Urine (UA) NEGATIVE (NEG); Ketones,Urine NEG (NEG); Leukocyte Esterase,Urine NEG /uL (NEG); Nitrate,Urine NEG (NEG); Protein,Urine NEG (NEG); Specific Gravity,Urine 1.045 (1.000-1.035); Urine Blood NEG mg/dL (<0.03); Urobilinogen,Urine NEG (NEG)
[2020-06-15] MEDS ORDERED: INSULIN LISPRO 1 UNIT/0.01 ML UNIT SQ SCH (17:00)
[2020-06-15] MEDS ORDERED: MIDODRINE 5 MG TABLET PO PRN (17:01)
[2020-06-15] MEDS: PIPERACILLIN SODIUM/TAZOBACTAM 3.375 GM in DEXTROSE 5% IN WATER 50 ML IV SCH ×2 (17:53→21:46)
[2020-06-15] MEDS: DEXTROSE 5%-NS 1,000 ML IV SCH (17:54)
[2020-06-15] MEDS: INSULIN LISPRO 1 UNIT/0.01 ML UNIT SQ SCH ×2 (18:12→20:31)
[2020-06-15] MEDS ORDERED: 0.9 % SODIUM CHLORIDE 200 ML IV ONE (19:51)
[2020-06-15] MEDS: DOCUSATE SODIUM 100 MG CAPSULE PO SCH (20:30)
[2020-06-15] MEDS: HEPARIN 5,000 UNIT/ML VIAL SQ SCH (20:31)
[2020-06-15] MEDS: 0.9 % SODIUM CHLORIDE 10 ML SYRINGE IV SCH (20:31)
--- NOTE | 2020-06-15 20:57 | Internal Med History&Physical ---
HPI History of Present Illness Patient information: Note initiated : 06/15/20 at 8:47 pm Service Date, if different from initiated Date: [] Patient: Ozzy Greenberg a 64 y/o M admitted on 06/15/20 for weakness. Chief Complaint: [] History of present illness: Mr. Greenberg is a 64 year old M with a past medical history of current smoker, diabetes type 2, high blood pressure, and a history of alcohol abuse who presented to the ER due to weakness. As per patient, he fell multiple times during this weekend and today. He did not lose consciousness and he did not have head injury. Recently he has been feeling tired and have been having nausea, shortness of breath and poor appetite. He has lost significant body weight over the recent years. In the ER, chest CT showed metastatic neoplastic disease. Radiologist at Dr. Pabon will possibly do a biopsy for him tomorrow. When I saw this patient in the ER, other than symptoms mentioned above, he denied headache, chest pain, abdominal pain, hemoptysis, or change in vision. Review of Systems All systems: reviewed and no additional remarkable complaints except as stated PFSH PFSH All Active Problems Pneumonia (Acute) Malignancy (Acute) Chronic pain (Acute) Cervicalgia (Acute) Cervical radiculopathy (Acute) Cervical disc disease (Acute) Acromioclavicular joint arthritis (Acute) Large bowel perforation (Acute) Pedal edema (Acute) Bipolar disorder (Acute) Shoulder pain (Acute) Urinary retention due to benign prostatic hyperplasia (Acute) BPH (benign prostatic hyperplasia) (Acute) Urinary retention (Acute) GI bleed (Acute) Hypoglycemia (Acute) Adenomatous colon polyp (Chronic) Cervical radicular pain (Chronic) Left shoulder pain (Acute) Neck pain (Chronic) Irritable bowel syndrome with diarrhea (Chronic) Alcoholism (Chronic) Hypertension (Chronic) Sleep apnea (Chronic) Encounter for medication refill (Acute) Right ankle pain (Acute) Elevated PSA (Acute) Urinary tract infection (Acute) Headache (Acute) Change in vision (Acute) Patellofemoral syndrome of left knee (Acute) Diabetes type 2, uncontrolled (Chronic) Hyperlipidemia associated with type 2 diabetes mellitus (Chronic) Diabetes mellitus (Chronic) Erectile dysfunction (Chronic) Depression (Chronic) 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) History of ERCP (Chronic) Urinary retention (Chronic) Ulnar nerve compression (Chronic) Pancreatitis (Chronic) Neoplasm of uncertain behavior of skin (Chronic) Memory loss (Chronic) Insomnia due to mental disorder (Chronic) Hypertension, essential (Chronic) Dyspepsia (Chronic) Major depressive disorder, recurrent episode, in full remission (Chronic) Carpal tunnel syndrome (Chronic) Cardiac dysrhythmia (Chronic) Benign prostatic hyperplasia with urinary obstruction (Chronic) Benign neoplasm with pluriglandular involvement (Acute) Bipolar I disorder, most recent episode (or current) depressed, in partial or unspecified remission (Chronic) Anxiety disorder (Acute) Anemia (Chronic) Alcohol abuse, continuous (Chronic) Medical History Alcohol abuse, continuous (Chronic) last drink 2 weeks ago, not on antabuse any more. Alcoholism (Chronic) Anemia (Chronic) Anxiety disorder (Acute) Benign neoplasm with pluriglandular involvement (Acute) Benign prostatic hyperplasia with urinary obstruction (Chronic) Bipolar I disorder, most recent episode (or current) depressed, in partial or unspecified remission (Chronic) Cardiac dysrhythmia (Chronic) Carpal tunnel syndrome (Chronic) 02/03/2015-[place], bilateral Cervical radiculopathy (Acute) Cervicalgia (Acute) Chronic pain (Acute) Depression (Chronic) Diabetes mellitus (Chronic) Dyspepsia (Chronic) Encephalopathy (Resolved) 09/25/2014-[facility]- Hypoxic Erectile dysfunction (Chronic) on viagra 100mg, not seem to be working, wants to try jorgito garcia prescribe same, pt aware may not be covered by insurance. 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 on flomax, follows with Urology, Dr aCse Urinary tract infection (Acute) Weight loss (Resolved) workup neg, weight loss is now reversed, monitor. Surgical History Colonoscopy planned (Resolved) 09/06/2015 [facility]- Dr. Garcia History of carpal tunnel release (Acute) History of colonoscopy (Chronic 08/18/19) History of ERCP (Chronic) 02/04/2013,11/24/2013 History of prostate biopsy (Inactive) Squamous cell carcinoma (Inactive) Removed, right nostril area Family History Father , age 58 Malignant neoplasm of brain Grandfather (Maternal) Type 2 diabetes mellitus Unknown No history of heart disease Sister Hypertension Social History marital status: smoking status: Current every day smoker smoking status start date: 09/24/74 alcohol intake frequency: former alcohol drinker substance use type: marijuana MEDS/ALLERGIES Home Medications and Allergies Home Medications Medication Instructions Recorded Confirmed Type pantoprazole 40 mg tablet,delayed 40 mg PO QDAY #90 tab 07/24/19 06/15/20 Rx release fluticasone propionate 50 1 spray INTRANASAL QDAY #18.2 ml 08/27/19 06/15/20 Rx mcg/actuation nasal spray,suspension loratadine 10 mg tablet 10 mg PO QDAY #90 tab 08/27/19 06/15/20 Rx glipizide 10 mg tablet 10 mg PO QDAY #90 tab 09/30/19 06/15/20 Rx pravastatin 40 mg tablet 40 mg PO QHS #90 tab 09/30/19 06/15/20 Rx dicyclomine 20 mg tablet 20 mg PO TID #90 tab 01/12/20 06/15/20 Rx tamsulosin 0.4 mg capsule 0.4 mg PO QDAY #30 cap 03/03/20 06/15/20 Rx lactobacillus combination no.8 3 3,000 mmu cells PO QDAY 04/06/20 05/25/20 History billion cell capsule vitamin B complex 1 tab PO QDAY 04/06/20 05/25/20 History divalproex 500 mg tablet,delayed 1,000 mg PO QHS #60 tab 05/12/20 06/15/20 Rx release acetaminophen-codeine 1 tab PO Q8HP PRN 06/15/20 06/15/20 History furosemide 20 mg PO QAM 06/15/20 06/15/20 History levothyroxine 75 mcg PO QAMAC 06/15/20 06/15/20 History metformin 1,000 mg PO BIDCC 06/15/20 06/15/20 History mirtazapine 15 mg PO QHS 06/15/20 06/15/20 History sertraline 50 mg tablet See Rx Instructions .ROUTE 06/15/20 06/15/20 Rx .COMPLEX #21 tab Allergies Allergy/AdvReac Type Severity Reaction Status Date / Time insulin glargine AdvReac Mild Itching, Verified 06/15/20 15:33 [From Pema Birch] Rash venlafaxine [From Effexor] AdvReac Mild Itching Verified 06/15/20 11:01 EXAM Constitutional Vitals: Temp Pulse Resp BP Pulse Ox 99.1 F H 100 H 21 77/59 95 06/15/20 20:02 06/15/20 20:02 06/15/20 20:02 06/15/20 20:02 06/15/20 20:02 Additional findings Additional findings: General - No acute distress Eyes - PERRLA, EOM intact ENT no rhinorrhea, no noticeable or palpable swelling, no redness or rash around throat or on face Neck supple, no JVD, no thyromegaly Respiratory: Lungs - diminshed BS, no use of accessary muscles. Cardiovascular - RRR no m/r/g, GI - Normal bowel sounds, no distended, soft. Extremeties - No edema, cyanosis or clubbing Hemo/lymphatic/immune no lymphadenopathy Neurological Alert and oriented x 3, no focal neurological deficits. Psychiatry flat affect DATA Data Completed and Pending Labs: Labs from last 24 hours 06/15/20 06/15/20 06/15/20 15:25 11:58 11:58 WBC RBC Hgb Hct POC Hct MCV MCH MCHC RDW Plt Count MPV Gran % Lymph % (Auto) [place] % (Auto) Eos % (Auto) Baso % (Auto) Gran # Lymph # (Auto) [place] # (Auto) Eos # (Auto) Baso # (Auto) Differential Comment VBG Lactic Acid TNP 3.1 H POC Sodium Sodium POC Potassium Potassium POC Chloride Chloride Carbon Dioxide POC Total CO2 Anion Gap POC BUN BUN Creatinine POC Creatinine GFR Calculation Glucose POC Glucose Calcium POC WB Ioniz Calcium Total Bilirubin AST ALT Alkaline Phosphatase Troponin T NT-Pro-B Natriuret Pep Total Protein Albumin Globulin Albumin/Globulin Ratio Procalcitonin Urine Color Yellow Urine Appearance Clear Urine pH 6.0 Ur Specific [place] 1.045 H Urine Protein Neg Urine Glucose (UA) Negative Urine Ketones Neg Urine Occult Blood Neg Urine Nitrate Neg Urine Bilirubin Neg Urine Urobilinogen Neg Ur Leukocyte Esterase Neg Ethyl Alcohol 06/15/20 06/15/20 06/15/20 11:32 11:28 11:28 WBC 23.8 H RBC 4.01 L Hgb 12.0 L Hct 33.7 L POC Hct 43.0 MCV 84.0 MCH 29.9 MCHC 35.6 RDW 14.7 H Plt Count 149 MPV 9.7 Gran % 94.7 H Lymph % (Auto) 0.8 L [place] % (Auto) 3.8 Eos % (Auto) 0.1 Baso % (Auto) 0.6 Gran # 22.56 H Lymph # (Auto) 0.18 L [place] # (Auto) 0.91 H Eos # (Auto) 0.03 Baso # (Auto) 0.14 Differential Comment Comment VBG Lactic Acid POC Sodium 127 L Sodium 127 L POC Potassium 3.3 Potassium 3.5 POC Chloride 90 L Chloride 88 L Carbon Dioxide 19 L POC Total CO2 23 Anion Gap 20.0 H POC BUN 22 BUN 22 Creatinine 0.7 POC Creatinine 0.8 GFR Calculation 101 Glucose 19 L* POC Glucose 23 L* Calcium 10.1 POC WB Ioniz Calcium 1.11 L Total Bilirubin 0.5 AST 51 H ALT 42 H Alkaline Phosphatase 129 H Troponin T NT-Pro-B Natriuret Pep Total Protein 6.3 Albumin 2.6 L Globulin 3.7 Albumin/Globulin Ratio 0.7 L Procalcitonin Urine Color Urine Appearance Urine pH Ur Specific [place] Urine Protein Urine Glucose (UA) Urine Ketones Urine Occult Blood Urine Nitrate Urine Bilirubin Urine Urobilinogen Ur Leukocyte Esterase Ethyl Alcohol < 0.010 06/15/20 06/15/20 06/15/20 10:32 10:32 10:32 WBC RBC Hgb Hct POC Hct MCV MCH MCHC RDW Plt Count MPV Gran % Lymph % (Auto) [place] % (Auto) Eos % (Auto) Baso % (Auto) Gran # Lymph # (Auto) [place] # (Auto) Eos # (Auto) Baso # (Auto) Differential Comment VBG Lactic Acid POC Sodium Sodium POC Potassium Potassium POC Chloride Chloride Carbon Dioxide POC Total CO2 Anion Gap POC BUN BUN Creatinine POC Creatinine GFR Calculation Glucose POC Glucose Calcium POC WB Ioniz Calcium Total Bilirubin AST ALT Alkaline Phosphatase Troponin T < 0.01 NT-Pro-B Natriuret Pep 2728.0 H Total Protein Albumin Globulin Albumin/Globulin Ratio Procalcitonin 3.42 Urine Color Urine Appearance Urine pH Ur Specific [place] Urine Protein Urine Glucose (UA) Urine Ketones Urine Occult Blood Urine Nitrate Urine Bilirubin Urine Urobilinogen Ur Leukocyte Esterase Ethyl Alcohol A/P Narrative A/P Narrative: 1. Sepsis 2nd to pneumonia Blood culture IV fluid Repeat lactic acid 2. Postobstructive pneumnonia Sputum culture COVID-19 negative MRSA screen zosyn 3. Metastatic lung cancer to T5? Smoker CT chest - "Suspect 4 cm left hilar mass encasing and narrowing the anterior segment left upper lobe bronchus and pulmonary artery. A large postobstructive alveolar infiltrate throughout most of the right upper lobe .... 5 cm osteolytic lesion destroying the right T5 vertebral body ..." Radiologist at Dr. Pabon will possibly do a biopsy of T5 osteolytic metastases for him tomorrow. 4. DM type 2. Hba1c 6.0 on 02/18/20 Diabetic diet Insulin sliding scale 5. Hypoglycemia Could be due to poor appetite. Patient does not want to eat anything IV D5 normal saline 6. HTN Blood pressure is controlled Monitor 6. Leukocytosis Repeat a CBC in morning 7. Tobacco dependence Smoking cessation counseling Nicotine patch if necessary 8. Hx of alcohol abuse Has not been drinking over the past 5 years 9. Hyponatremia D5 normal saline Repeat electrolytes in the morning 10. DVT prophylaxis: Heparin 11. CODE STATUS: Full. Time Spent With Patient Time: Total time spent is greater than 50% in coordination of care (as documented) at patient's floor/unit and/or counseling patient: QUALITY VTE Deep Vein Thrombosis/Pulmonary Embolism Present on Admission: No
[2020-06-15] MEDS ORDERED: DIVALPROEX SODIUM 250 MG TABLET PO SCH (21:00)
[2020-06-15] MEDS ORDERED: DOCUSATE SODIUM 100 MG CAPSULE PO SCH (21:00)
[2020-06-15] MEDS ORDERED: HEPARIN 5,000 UNIT/ML VIAL SQ SCH (21:00)
[2020-06-15] MEDS ORDERED: SIMVASTATIN 20 MG TABLET PO SCH (21:00)
[2020-06-15] MEDS: IPRATROPIUM/ALBUTEROL 3 ML AMPUL.NEB NEB PRN (21:03)
[2020-06-15] MEDS ORDERED: HYDROmorphone 1 MG/ML SYRINGE IV PRN (21:31)
[2020-06-15] MEDS ORDERED: 0.9 % SODIUM CHLORIDE 250 ML IV ONE (21:36)
[2020-06-15] MEDS: HYDROCORTISONE SOD SUCC 100 MG VIAL IV SCH (21:46)
[2020-06-15] MEDS ORDERED: 0.9 % SODIUM CHLORIDE 10 ML SYRINGE IV SCH (22:00)
[2020-06-15] MEDS ORDERED: NOREPINEPHRINE BITARTRATE 8 MG in 0.9 % SODIUM CHLORIDE 242 ML IV SCH (23:15)
[2020-06-15] MEDS ORDERED: 0.9 % SODIUM CHLORIDE 250 ML IV SCH (23:15)
[2020-06-15] MEDS ORDERED: NICOTINE 14 MG PATCH ONE (23:34)
[2020-06-15] MEDS: NICOTINE 14 MG PATCH TOPICAL SCH (23:36)
[2020-06-15] MEDS: 0.9 % SODIUM CHLORIDE 250 ML IV SCH (23:37)
[2020-06-15] MEDS: PHENYLEPHRINE 10 MG/ML VIAL ONE (23:55)
[2020-06-16] MEDS: PHENYLEPHRINE 10 MG in 0.9 % SODIUM CHLORIDE 499 ML IV SCH ×3 (00:11→05:50)
[2020-06-16] MEDS ORDERED: 0.9 % SODIUM CHLORIDE 200 ML IV ONE (02:14)
[2020-06-16] MEDS: PHENYLEPHRINE 10 MG/ML VIAL ONE ×3 (03:05→03:11)
[2020-06-16] MEDS: PIPERACILLIN SODIUM/TAZOBACTAM 3.375 GM in DEXTROSE 5% IN WATER 50 ML IV SCH ×3 (05:20→21:45)
[2020-06-16] MEDS: IPRATROPIUM/ALBUTEROL 3 ML AMPUL.NEB NEB PRN (05:20)
[2020-06-16] MEDS: HYDROCORTISONE SOD SUCC 100 MG VIAL IV SCH ×2 (05:20→14:28)
[2020-06-16] MEDS: 0.9 % SODIUM CHLORIDE 10 ML SYRINGE IV SCH ×4 (05:21→21:14)
[2020-06-16] MEDS: 0.9 % SODIUM CHLORIDE 250 ML IV SCH ×3 (05:21→15:48)
[2020-06-16] MEDS: NOREPINEPHRINE BITARTRATE 16 MG in 0.9 % SODIUM CHLORIDE 234 ML IV SCH ×2 (05:21→10:55)
[2020-06-16] MEDS ORDERED: PHENYLEPHRINE 10 MG/ML VIAL ONE (05:52)
[2020-06-16] MEDS ORDERED: FUROSEMIDE 20 MG/2 ML VIAL IV ONE ×3 (05:59→08:01)
[2020-06-16 06:58] LABS: INR 1.5 (0.9-1.1); Prothrombin Time 18.7 sec (11.9-14.5)
[2020-06-16] MEDS ORDERED: LEVOTHYROXINE 75 MCG TABLET PO SCH (07:30)
[2020-06-16] MEDS ORDERED: PANTOPRAZOLE 40 MG TABLET PO SCH ×3 (07:30)
[2020-06-16 07:53] LABS: ALT/SGPT 24 U/l (0-40); AST/SGOT 20 U/l (0-37); Albumin 1.7 gm/dL (3.2-5.2); Albumin/Globulin Ratio 0.6 (1.0-2.3); Alkaline Phosphatase 91 U/L (39-117); Bilirubin,Total 0.3 mg/dL (0.0-1.0); Blood Urea Nitrogen 12 mg/dl (8-23); Calcium 8.4 mg/dl (8.6-10.4); Carbon Dioxide 22 mmol/L (22-30); Chloride 96 mmol/L (96-108); Globulin 2.8 gm/dL (2.2-3.7); Glomerular Filtration Rate 116; Glucose 110 mg/dL (70-105); Phosphorous 2.1 mg/dL (2.7-4.5)
[2020-06-16] MEDS ORDERED: POTASSIUM CHLORIDE 20 MEQ PACKET PO ONE (08:11)
[2020-06-16] MEDS: INSULIN LISPRO 1 UNIT/0.01 ML UNIT SQ SCH ×3 (08:25→18:41)
[2020-06-16] MEDS: HEPARIN 5,000 UNIT/ML VIAL SQ SCH ×2 (08:26→21:13)
[2020-06-16] MEDS: DOCUSATE SODIUM 100 MG CAPSULE PO SCH ×2 (08:26→20:20)
--- NOTE | 2020-06-16 08:28 | XRay Report ---
CLINICAL INFORMATION: increased SOB and supplemental oxygen COMPARISON: 06/15/2020 FINDINGS: Heart size and pulmonary vasculature are normal. Large left upper lobe infiltrate has increased in size is now more consolidated. The left hilar mass, suspected on CT, is obscured by the infiltrate. Severe underlying COPD changes noted. Small left pleural effusion. IMPRESSION: Moderate worsening in large left upper lobe infiltrate Interpreted and Authenticated by: Nando Gavin 06/16/20
[2020-06-16 08:29] LABS: Basophils # (Auto) 0.01 K/mcL (0.00-0.30); Basophils % (Auto) 0 % (0.0-2.0); Eosinophils # (Auto) 0.02 K/mcL (0.00-0.70); Eosinophils % (Auto) 0.1 % (0.0-7.0); Granulocytes % (Auto) 95.1 % (38.0-78.0); Hematocrit 34.7 % (40.1-51.0); Hemoglobin 12.3 g/dL (13.7-17.5); Lymphocytes # (Auto) 0.62 K/mcL (1.50-4.80); Lymphocytes % (Auto) 2.1 % (15.5-49.0); Mean Cell Volume 85.9 fL (80.0-100.0); Mean Corpuscular HGB Conc 35.4 g/dL (31.0-36.0); Mean Platelet Volume 10.2 fL (7.4-10.4); Monocytes % (Auto) 2.7 % (1.0-12.0); Platelet Count 181 K/mcL (140-440); RBC 4.04 M/mcL (4.63-6.08); WBC 29.3 K/mcL (4.50-11.00)
[2020-06-16] MEDS ORDERED: TAMSULOSIN 0.4 MG CAPSULE PO SCH (09:00)
[2020-06-16] MEDS ORDERED: FLUTICASONE PROPIONATE SPRAY.NAS NS SCH (09:00)
[2020-06-16] MEDS ORDERED: SERTRALINE 50 MG TABLET PO SCH (09:00)
[2020-06-16] MEDS ORDERED: PHENYLEPHRINE 20 MG in 0.9 % SODIUM CHLORIDE 248 ML IV SCH ×2 (09:00→18:00)
[2020-06-16] MEDS ORDERED: MAGNESIUM SULFATE 2 GM/50 ML BAG IV ONE (09:09)
[2020-06-16] MEDS: NICOTINE 14 MG PATCH TOPICAL SCH (09:55)
[2020-06-16] MEDS ORDERED: NICOTINE 14 MG PATCH TOPICAL SCH (10:00)
[2020-06-16] MEDS ORDERED: DEXTROSE 50% IV SCH (10:00)
[2020-06-16] MEDS ORDERED: SODIUM CHLORIDE 0.9% IV SCH (10:00)
[2020-06-16] MEDS ORDERED: 0.9 % SODIUM CHLORIDE 10 ML SYRINGE IV PRN ×2 (10:28→15:56)
--- NOTE | 2020-06-16 11:51 | XRay Report ---
CLINICAL INFORMATION: Central Line Placement COMPARISON: 06/16/2020 0610 hours FINDINGS: Heart size, mediastinum and pulmonary vessels are normal. Large infiltrate in the left upper lobe is unchanged. Severe underlying COPD again noted. A new right IJ central line is in place tip overlies the SVC near the right atrial junction. IMPRESSION: Right IJ central line in satisfactory position. No pneumothorax or other complication from line placement Large left lower lobe infiltrate and underlying COPD unchanged Interpreted and Authenticated by: Nando Gavin 06/16/20
[2020-06-16] MEDS ORDERED: INSULIN LISPRO 1 UNIT/0.01 ML UNIT SQ SCH (12:00)
--- NOTE | 2020-06-16 12:13 | Procedure Note ---
PROC Central Line Placement Right IJ: Consent obtained: written consent Date of Procedure: 06/16/20 Time out performed: Yes Patient placed on monitor/pulse ox: Yes MD prep: mask, sterile gown, sterile gloves and cap Central line prep: 2% Chlorhexidine scrub Local anesthesia used: lidocaine 1% Amount of anesthesia used (mls): 2 Ultrasound used for placement: Yes Central line lumen inserted: quad Post procedure: sutured in place, good blood return, all ports aspirated, flushed, capped and sterile dressing applied Post procedure x-ray: other (CXR ordered, report pending) Patient tolerated procedure: well Complications: none
[2020-06-16] MEDS: PHENYLEPHRINE 20 MG in 0.9 % SODIUM CHLORIDE 248 ML IV SCH ×2 (12:16→15:30)
[2020-06-16 12:46] LABS: ABG Methemoglobin 0.3 % (0.4-1.5); Total Hemoglobin 12.9 gm/dL (13.5-16.5); VBG Base Excess 0.2 (-2.0-2.0); VBG Oxygen Saturation 86.5 % (40.0-70.0); VBG PCO2 31.9 mmHg (41.0-51.0); VBG PH 7.48 U (7.32-7.42); VBG PO2 61 mmHg (25-40)
[2020-06-16] MEDS ORDERED: DEXTROSE 50% 50 ML VIAL IV PRN (15:56)
[2020-06-16] MEDS ORDERED: IOPAMIDOL 100 ML BOTTLE IV ONE (15:56)
[2020-06-16] MEDS ORDERED: ONDANSETRON 4 MG/2 ML VIAL IV PRN (15:56)
[2020-06-16] MEDS ORDERED: LACTULOSE 20 GM/30 ML ORAL.SOL PO PRN (15:56)
[2020-06-16] MEDS ORDERED: NALOXONE HCL 0.4 MG/ML VIAL IV PRN (15:56)
[2020-06-16] MEDS ORDERED: IPRATROPIUM/ALBUTEROL 3 ML AMPUL.NEB NEB PRN (15:56)
[2020-06-16] MEDS ORDERED: HYDROmorphone 1 MG/ML SYRINGE IV PRN (15:56)
[2020-06-16] MEDS ORDERED: 0.9 % SODIUM CHLORIDE 250 ML IV SCH ×5 (15:56→17:30)
[2020-06-16] MEDS ORDERED: DEXTROSE 31 GM ORAL.SUSP PO PRN (15:56)
[2020-06-16] MEDS: DEXTROSE 5%-NS 1,000 ML IV SCH (15:58)
[2020-06-16 16:23] LABS: Band Neutrophils % 22 % (0-10); Lymphocytes % 3 % (15-49); Monocytes % (Manual) 4 % (1-12); Platelet Estimate NORMAL (NORMAL); RBC Morphology NORMAL (NORMAL); Segmented Neutrophils % 71 % (38-78)
--- NOTE | 2020-06-16 19:04 | Internal Med Progress Note ---
SUBJECTIVE Subjective Patient information: Note initiated : 06/16/20 at 7:00 pm Service Date, if different from initiated Date: [] Patient: Ozzy Greenberg 64 y/o M admitted on 06/15/20 for weakness. Chief Complaint: [] Interval history: History of present illness: Mr. Greenberg is a 64 year old M with a past medical history of current smoker, diabetes type 2, high blood pressure, and a history of alcohol abuse who presented to the ER due to weakness. As per patient, he fell multiple times during this weekend and today. He did not lose consciousness and he did not have head injury. Recently he has been feeling tired and have been having nausea, shortness of breath and poor appetite. He has lost significant body weight over the recent years. In the ER, chest CT showed metastatic neoplastic disease. Radiologist at Dr. Pabon will possibly do a biopsy for him tomorrow. When I saw this patient in the ER, other than symptoms mentioned above, he denied headache, chest pain, abdominal pain, hemoptysis, or change in vision. 06/16 Pt looks weak and tired. But no new complaits. He has hypotension has been low since admission. Phenylepirine was initially started but MAP could not be maintained 65. Levophed was added. His fluid status seems to be overloaded. Lasix 20mg x 2 was given. D5NS was changed to D10NA. Good urine output WBC 29.3 with bandemia, 22. K, mag and phos low. Replaced. Met and updated to daughter this morning. A family conference on tomorrow has been setup. 06/17 Constitutional Vitals: Vital Signs Temp Pulse Resp BP Pulse Ox 98.4 F 107 H 23 H 89/77 94 06/16/20 18:01 06/16/20 18:01 06/16/20 18:01 06/16/20 18:01 06/16/20 18:01 Period Temp Pulse Resp BP Sys/Gale Pulse Ox Last 24 Hr 97.4 F-99.1 F 47-119 13-36 69-124/40-108 85-98 Intake and Output 06/16/20 06/16/20 06/16/20 05:59 13:59 21:59 Intake Total 1500 2120 366 Output Total 575 1700 385 Balance 925 420 -19 Weight 53.155 kg Patient Weight 06/17/20 05:59 Weight 53.155 kg Intake & Output: Intake & Output 06/16/20 06/16/20 06/16/20 05:59 13:59 21:59 Intake Total 1500 2120 366 Output Total 575 1700 385 Balance 925 420 -19 Weight 53.155 kg Intake: IV 1500 1940 366 Sodium Chloride 0.9% 250 ml @ 450 160 20 mls/hr IV .[id number] JARROD Rx#: [id number] Dextrose 5%-Ns IV Solution 1, 911 000 ml @ 75 mls/hr IV .[id number] JARROD Rx#:[id number] Levophed 16 mg In Sodium 19 12 Chloride 0.9% 234 ml @ 10 MCG/ MIN 9.375 mls/hr IV Q24H JARROD Rx #:[id number] Neosynephrine/Vazculep 20 mg In 250 304 Sodium Chloride 0.9% 248 ml @ 2 MCG/KG/MIN 79.733 mls/hr IV Q3H JARROD Rx#:[id number] Neosynephrine/Vazculep 10 mg In 1000 500 Sodium Chloride 0.9% 499 ml @ 0.5 MCG/KG/MIN 79.733 mls/hr IV DUR JARROD Rx#:[id number] Zosyn 3.375 gm In Dextrose 5% 50 50 50 in Water 50 ml @ 100 mls/hr IV Q8H JARROD Rx#:[id number] Oral 180 Output: Urine Catheter Amount 575 1300 385 Void Amount 400 Other: Meal Breakfast Percent of Meal Consumed 0% Urine Appearance Clear Clear Clear Uretheral ([place]) Clear Clear Urine Color Dark Yellow Pale Dark Yellow Uretheral ([place]) Bright Yellow Dark Minnie Stool Size Small Small Smear Stool Color Brown Brown Brown Stool Consistency Loose Soft Soft # of times incontinent of 1 1 1 Bowels Exam: General: Awake, No acute Distress Eyes/N/T: EOMI, Head/Neck: neck supple, CV: RRR, No murmurs, Pulm: diminished b/l, no wheezing Abd: soft, nontender, +BS x4 Ext: no clubbing/cyanosis/edema Neuro: Alert, no focal deficits, moves all extremities, Skin: warm/dry OBJ DATA Labs CBC & Chem 7: 06/16/20 04:48 06/16/20 04:48 Labs: Abnormal Lab Results 06/16/20 06/16/20 06/16/20 12:30 12:30 04:48 WBC RBC Hgb Hct RDW Gran % Lymph % (Auto) Gran # Lymph # (Auto) [place] # (Auto) Band Neutrophils % 22 H Lymphocytes % 3 L PT INR ABG Methemoglobin 0.3 L VBG pH 7.48 H VBG pCO2 31.9 L VBG pO2 61 H VBG HCO3 23.0 L VBG Total CO2 24.0 L VBG O2 Saturation 86.5 H VBG Lactic Acid 3.2 H Carboxyhemoglobin 4.6 H Total Hemoglobin 12.9 L POC Sodium Sodium Potassium POC Chloride Chloride Carbon Dioxide Anion Gap Creatinine Glucose POC Glucose Calcium POC WB Ioniz Calcium Phosphorus Magnesium AST ALT Alkaline Phosphatase NT-Pro-B Natriuret Pep Total Protein Albumin Albumin/Globulin Ratio Ur Specific [place] 06/16/20 06/16/20 06/16/20 04:48 04:48 04:48 WBC 29.3 H RBC 4.04 L Hgb 12.3 L Hct 34.7 L RDW 15.0 H Gran % 95.1 H Lymph % (Auto) 2.1 L Gran # 27.86 H Lymph # (Auto) 0.62 L [place] # (Auto) Band Neutrophils % Lymphocytes % PT 18.7 H INR 1.5 H ABG Methemoglobin VBG pH VBG pCO2 VBG pO2 VBG HCO3 VBG Total CO2 VBG O2 Saturation VBG Lactic Acid Carboxyhemoglobin Total Hemoglobin POC Sodium Sodium 130 L Potassium 3.1 L POC Chloride Chloride Carbon Dioxide Anion Gap Creatinine 0.5 L Glucose 110 H POC Glucose Calcium 8.4 L POC WB Ioniz Calcium Phosphorus 2.1 L Magnesium 1.4 L AST ALT Alkaline Phosphatase NT-Pro-B Natriuret Pep Total Protein 4.5 L Albumin 1.7 L Albumin/Globulin Ratio 0.6 L Ur Specific [place] 06/15/20 06/15/20 06/15/20 15:25 11:58 11:32 WBC RBC Hgb Hct RDW Gran % Lymph % (Auto) Gran # Lymph # (Auto) [place] # (Auto) Band Neutrophils % Lymphocytes % PT INR ABG Methemoglobin VBG pH VBG pCO2 VBG pO2 VBG HCO3 VBG Total CO2 VBG O2 Saturation VBG Lactic Acid 3.1 H Carboxyhemoglobin Total Hemoglobin POC Sodium 127 L Sodium 127 L Potassium POC Chloride 90 L Chloride 88 L Carbon Dioxide 19 L Anion Gap 20.0 H Creatinine Glucose 19 L* POC Glucose 23 L* Calcium POC WB Ioniz Calcium 1.11 L Phosphorus Magnesium AST 51 H ALT 42 H Alkaline Phosphatase 129 H NT-Pro-B Natriuret Pep Total Protein Albumin 2.6 L Albumin/Globulin Ratio 0.7 L Ur Specific [place] 1.045 H 06/15/20 06/15/20 11:28 10:32 WBC 23.8 H RBC 4.01 L Hgb 12.0 L Hct 33.7 L RDW 14.7 H Gran % 94.7 H Lymph % (Auto) 0.8 L Gran # 22.56 H Lymph # (Auto) 0.18 L [place] # (Auto) 0.91 H Band Neutrophils % Lymphocytes % PT INR ABG Methemoglobin VBG pH VBG pCO2 VBG pO2 VBG HCO3 VBG Total CO2 VBG O2 Saturation VBG Lactic Acid Carboxyhemoglobin Total Hemoglobin POC Sodium Sodium Potassium POC Chloride Chloride Carbon Dioxide Anion Gap Creatinine Glucose POC Glucose Calcium POC WB Ioniz Calcium Phosphorus Magnesium AST ALT Alkaline Phosphatase NT-Pro-B Natriuret Pep 2728.0 H Total Protein Albumin Albumin/Globulin Ratio Ur Specific [place] Meds: Medications Albuterol/Ipratropium (Duoneb) 3 ml NEB Q6HRT PRN PRN Reason: Shortness Of Breath Last Admin: 06/16/20 17:22 Dose: 3 ml Documented by: Dextrose (Dextrose 50%) 0 ml IV UD PRN PRN Reason: Hypoglycemia Diagnostic Test (Pha) (Accu-Chek) 1 each FS Q6 JARROD Last Admin: 06/16/20 18:00 Dose: 1 each Documented by: Divalproex Sodium (Depakote Er) 1,000 mg PO QHS JARROD Docusate Sodium (Colace) 100 mg PO BID JARROD Fluticasone Propionate (Flonase) 1 spray NS QDAY JARROD Glucose (Insta-Glucose) 15 gm PO PRN PRN PRN Reason: Hypoglycemia Heparin Sodium (Porcine) (Heparin) 5,000 unit SQ Q12 JARROD Hydrocortisone Sodium Succinate (Solu-Cortef) 50 mg IV Q8 JARROD Hydromorphone HCl (Dilaudid) 1 mg IV Q4HP PRN; Protocol PRN Reason: Per Pain Protocol Dextrose 200 ml/ Sodium (Chloride) 1,000 mls @ 25 mls/hr IV Q24H [facility] Norepinephrine Bitartrate 16 (mg/ Sodium Chloride) 250 mls @ 9.375 mls/hr IV Q24H JARROD; Protocol Piperacillin Sod/Tazobactam (Sod 3.375 gm/ Dextrose) 50 mls @ 100 mls/hr IV Q8H JARROD; Protocol Sodium Chloride (Sodium Chloride 0.9%) 250 mls @ 0 mls/hr IV DUR JARROD; Protocol Last Admin: 06/16/20 16:40 Dose: 11 mls/hr Documented by: Insulin Human Lispro (Humalog) 0 unit SQ Q6 JARROD; Protocol Last Admin: 06/16/20 18:41 Dose: Not Given Documented by: Lactulose (Cephulac) 10 gm PO DAILYP PRN PRN Reason: Constipation Levothyroxine Sodium (Synthroid) 75 mcg PO QAMAC JARROD Naloxone HCl (Narcan) 0.1 mg IV Q2MIN PRN PRN Reason: Opiate Reversal Nicotine (Nicoderm) 14 mg TOPICAL DAILY@1000 JARROD Ondansetron HCl (Zofran) 4 mg IV Q4HP PRN; Protocol PRN Reason: Nausea And Vomiting Pantoprazole Sodium (Protonix) 40 mg PO QAMAC JARROD Sertraline HCl (Zoloft) 100 mg PO DAILY JARROD Simvastatin (Zocor) 20 mg PO HS JARROD Sodium Chloride (Saline Flush) 10 ml IV Q12 JARROD Sodium Chloride (Saline Flush) 10 ml IV Q8 JARROD Sodium Chloride (Saline Flush) 10 ml IV UD PRN PRN Reason: FLUSH Sodium Phosphate (Pot Phosphate Neutral) 250 mg PO BID JARROD Tamsulosin HCl (Flomax) 0.4 mg PO QDAY JARROD Tramadol HCl (Ultram) 50 mg PO Q6HP PRN; Protocol PRN Reason: Pain ABG Interpretation ABG results: 06/16/20 12:30 ABG Methemoglobin 0.3 L VBG pH 7.48 H VBG pCO2 31.9 L VBG pO2 61 H VBG HCO3 23.0 L VBG Total CO2 24.0 L VBG O2 Saturation 86.5 H VBG Base Excess 0.2 A/P Narrative A/P Narrative: A: *Septic Shock: 2/2 PNA -Blood culture - *Postobstructive pneumonia: 2/2 like lung CA -Sputum culture , COVID-19 negative, MRSA screen neg *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 A large postobstructive alveolar infiltrate throughout most of the right upper lobe .... 5 cm osteolytic lesion destroying the right T5 vertebral body ..." -weight loss of about 30lbs since last year *Acute hypoxic Resp Failure: -on 3L NC currently *Tobacco dependence: *likely COPD based on imaging and h/o smoking *DM type 2: Hba1c 6.0 on 02/18/20 *Hypoglycemia: poor appetite. Patient does not want to eat anything *HTN: *Hx of alcohol abuse: has not been drinking over the past 5 years *Hyponatremia/hypokalemia/hypophosphatemia/hypomagnesemia: *GERD: *Depression/Bipolar: *Hypothyroidism: P: -Vasopressors wean as able -Guarded prognosis in light of likely new metastatic CA diagnosis -IVF, s/p aggressive IVFs, wean off d5NS -cont zosyn for now, BC/SC pending -wean o2 as able -IS/Acapella -electrolyte replacement -Diabetic diet, Insulin sliding scale, hold glipizide/metformin -eventual biopsy if pt stablizes, Dr. Pabon will possibly do a biopsy of T5 osteolytic metastases -Smoking cessation counseling/ Nicotine patch if necessary -ppx: Heparin/home ppi CODE STATUS: Full. Time Spent With Patient Time: Total time spent is greater than 50% in coordination of care (as documented) at patient's floor/unit and/or counseling patient: QUALITY VTE Deep Vein Thrombosis/Pulmonary Embolism Present on Admission: No
--- NOTE | 2020-06-16 20:16 | Internal Med Progress Note ---
SUBJECTIVE Subjective Patient information: Note initiated : 06/16/20 at 8:12 pm Service Date, if different from initiated Date: [] Patient: Ozzy Greenberg 64 y/o M admitted on 06/15/20 for weakness. Chief Complaint: [] History of present illness: Mr. Greenberg is a 64 year old M with a past medical hi story of current smoker, diabetes type 2, high blood pressure, and a history of alcohol abuse who presented to the ER due to weakness. As per patient, he fell multiple times during this weekend and today. He did not lose consciousness and he did not have head injury. Recently he has been feeling tired and have been having nausea, shortness of breath and poor appetite. He has lost significant b paul weight over the recent years. In the ER, chest CT showed metastatic neoplastic disease. Radiologist at Dr. Pabon will possibly do a biopsy for him tomorrow. When I saw this patient in the ER, other than symptoms mentioned above, he denied headache, chest pain, abdominal pain, hemoptysis, or change in vision. 06/16 Pt looks weak and tired. But no new complaits. He has hypotension has been low since admission. Phenylepirine was initially started but MAP could not be maintained 65. Levophed was added. His fluid status seems to be overloaded. Lasix 20mg x 2 was given. D5NS was changed to D10NA. Good urine output WBC 29.3 with bandemia, 22. K, mag and phos low. Replaced. Met and updated to daughter this morning. A family conference on tomorrow has been setup. Review of Systems All systems: reviewed and no additional remarkable complaints except as stated Constitutional Vitals: Vital Signs Temp Pulse Resp BP Pulse Ox 98.4 F 107 H 23 H 89/77 95 06/16/20 18:01 06/16/20 18:01 06/16/20 18:01 06/16/20 18:01 06/16/20 19:15 Period Temp Pulse Resp BP Sys/Gale Pulse Ox Last 24 Hr 97.4 F-98.6 F 47-119 13-36 69-124/40-108 85-98 Intake and Output 06/16/20 06/16/20 06/16/20 05:59 13:59 21:59 Intake Total 1500 2120 366 Output Total 575 1700 425 Balance 925 420 -59 Weight 53.155 kg Patient Weight 06/17/20 05:59 Weight 53.155 kg Intake & Output: Intake & Output 06/16/20 06/16/20 06/16/20 05:59 13:59 21:59 Intake Total 1500 2120 366 Output Total 575 1700 425 Balance 925 420 -59 Weight 53.155 kg Intake: IV 1500 1940 366 Sodium Chloride 0.9% 250 ml @ 450 160 20 mls/hr IV .[id number] JARROD Rx#: [id number] Dextrose 5%-Ns IV Solution 1, 911 000 ml @ 75 mls/hr IV .[id number] JARROD Rx#:[id number] Levophed 16 mg In Sodium 19 12 Chloride 0.9% 234 ml @ 10 MCG/ MIN 9.375 mls/hr IV Q24H JARROD Rx #:[id number] Neosynephrine/Vazculep 20 mg In 250 304 Sodium Chloride 0.9% 248 ml @ 2 MCG/KG/MIN 79.733 mls/hr IV Q3H JARROD Rx#:[id number] Neosynephrine/Vazculep 10 mg In 1000 500 Sodium Chloride 0.9% 499 ml @ 0.5 MCG/KG/MIN 79.733 mls/hr IV DUR JARROD Rx#:[id number] Zosyn 3.375 gm In Dextrose 5% 50 50 50 in Water 50 ml @ 100 mls/hr IV Q8H JARROD Rx#:[id number] Oral 180 Output: Urine Catheter Amount 575 1300 425 Void Amount 400 Other: Meal Breakfast Percent of Meal Consumed 0% Urine Appearance Clear Clear Clear Uretheral ([place]) Clear Clear Urine Color Dark Yellow Pale Dark Minnie Uretheral ([place]) Bright Yellow Dark [place]ie Stool Size Small Small Smear Stool Color Brown Brown Brown Stool Consistency Loose Soft Soft # of times incontinent of 1 1 1 Bowels Additional findings Additional findings: General - Thin, cachectic, No acute distress Eyes - PERRLA, EOM intact ENT no rhinorrhea, no noticeable or palpable swelling, no redness or rash around throat or on face Neck supple, no JVD, no thyromegaly Respiratory: Lungs - diminshed BS, no use of accessary muscles. Cardiovascular - RRR no m/r/g, GI - Normal bowel sounds, no distended, soft. Extremeties - No edema, cyanosis or clubbing Hemo/lymphatic/immune no lymphadenopathy Neurological Alert and oriented x 3, no focal neurological deficits. Psychiatry flat affect OBJ DATA Labs CBC & Chem 7: 06/16/20 04:48 06/16/20 04:48 Labs: Abnormal Lab Results 06/16/20 06/16/20 06/16/20 12:30 12:30 04:48 WBC RBC Hgb Hct RDW Gran % Lymph % (Auto) Gran # Lymph # (Auto) [place] # (Auto) Band Neutrophils % 22 H Lymphocytes % 3 L PT INR ABG Methemoglobin 0.3 L VBG pH 7.48 H VBG pCO2 31.9 L VBG pO2 61 H VBG HCO3 23.0 L VBG Total CO2 24.0 L VBG O2 Saturation 86.5 H VBG Lactic Acid 3.2 H Carboxyhemoglobin 4.6 H Total Hemoglobin 12.9 L POC Sodium Sodium Potassium POC Chloride Chloride Carbon Dioxide Anion Gap Creatinine Glucose POC Glucose Calcium POC WB Ioniz Calcium Phosphorus Magnesium AST ALT Alkaline Phosphatase NT-Pro-B Natriuret Pep Total Protein Albumin Albumin/Globulin Ratio Ur Specific [place] 06/16/20 06/16/20 06/16/20 04:48 04:48 04:48 WBC 29.3 H RBC 4.04 L Hgb 12.3 L Hct 34.7 L RDW 15.0 H Gran % 95.1 H Lymph % (Auto) 2.1 L Gran # 27.86 H Lymph # (Auto) 0.62 L [place] # (Auto) Band Neutrophils % Lymphocytes % PT 18.7 H INR 1.5 H ABG Methemoglobin VBG pH VBG pCO2 VBG pO2 VBG HCO3 VBG Total CO2 VBG O2 Saturation VBG Lactic Acid Carboxyhemoglobin Total Hemoglobin POC Sodium Sodium 130 L Potassium 3.1 L POC Chloride Chloride Carbon Dioxide Anion Gap Creatinine 0.5 L Glucose 110 H POC Glucose Calcium 8.4 L POC WB Ioniz Calcium Phosphorus 2.1 L Magnesium 1.4 L AST ALT Alkaline Phosphatase NT-Pro-B Natriuret Pep Total Protein 4.5 L Albumin 1.7 L Albumin/Globulin Ratio 0.6 L Ur Specific [place] 06/15/20 06/15/20 06/15/20 15:25 11:58 11:32 WBC RBC Hgb Hct RDW Gran % Lymph % (Auto) Gran # Lymph # (Auto) [place] # (Auto) Band Neutrophils % Lymphocytes % PT INR ABG Methemoglobin VBG pH VBG pCO2 VBG pO2 VBG HCO3 VBG Total CO2 VBG O2 Saturation VBG Lactic Acid 3.1 H Carboxyhemoglobin Total Hemoglobin POC Sodium 127 L Sodium 127 L Potassium POC Chloride 90 L Chloride 88 L Carbon Dioxide 19 L Anion Gap 20.0 H Creatinine Glucose 19 L* POC Glucose 23 L* Calcium POC WB Ioniz Calcium 1.11 L Phosphorus Magnesium AST 51 H ALT 42 H Alkaline Phosphatase 129 H NT-Pro-B Natriuret Pep Total Protein Albumin 2.6 L Albumin/Globulin Ratio 0.7 L Ur Specific [place] 1.045 H 06/15/20 06/15/20 11:28 10:32 WBC 23.8 H RBC 4.01 L Hgb 12.0 L Hct 33.7 L RDW 14.7 H Gran % 94.7 H Lymph % (Auto) 0.8 L Gran # 22.56 H Lymph # (Auto) 0.18 L [place] # (Auto) 0.91 H Band Neutrophils % Lymphocytes % PT INR ABG Methemoglobin VBG pH VBG pCO2 VBG pO2 VBG HCO3 VBG Total CO2 VBG O2 Saturation VBG Lactic Acid Carboxyhemoglobin Total Hemoglobin POC Sodium Sodium Potassium POC Chloride Chloride Carbon Dioxide Anion Gap Creatinine Glucose POC Glucose Calcium POC WB Ioniz Calcium Phosphorus Magnesium AST ALT Alkaline Phosphatase NT-Pro-B Natriuret Pep 2728.0 H Total Protein Albumin Albumin/Globulin Ratio Ur Specific [place] Meds: Medications Albuterol/Ipratropium (Duoneb) 3 ml NEB Q6HRT PRN PRN Reason: Shortness Of Breath Last Admin: 06/16/20 17:22 Dose: 3 ml Documented by: Dextrose (Dextrose 50%) 0 ml IV UD PRN PRN Reason: Hypoglycemia Diagnostic Test (Pha) (Accu-Chek) 1 each FS Q6 JARROD Last Admin: 06/16/20 18:00 Dose: 1 each Documented by: Divalproex Sodium (Depakote Er) 1,000 mg PO QHS JARROD Docusate Sodium (Colace) 100 mg PO BID JARROD Fluticasone Propionate (Flonase) 1 spray NS QDAY JARROD Glucose (Insta-Glucose) 15 gm PO PRN PRN PRN Reason: Hypoglycemia Heparin Sodium (Porcine) (Heparin) 5,000 unit SQ Q12 [facility] Hydrocortisone Sodium Succinate (Solu-Cortef) 50 mg IV Q8 JARROD Hydromorphone HCl (Dilaudid) 1 mg IV Q4HP PRN; Protocol PRN Reason: Per Pain Protocol Dextrose 200 ml/ Sodium (Chloride) 1,000 mls @ 25 mls/hr IV Q24H [facility] Norepinephrine Bitartrate 16 (mg/ Sodium Chloride) 250 mls @ 9.375 mls/hr IV Q24H [facility]; Protocol Piperacillin Sod/Tazobactam (Sod 3.375 gm/ Dextrose) 50 mls @ 100 mls/hr IV Q8H JARROD; Protocol Sodium Chloride (Sodium Chloride 0.9%) 250 mls @ 0 mls/hr IV DUR [facility]; Protocol Last Admin: 06/16/20 16:40 Dose: 11 mls/hr Documented by: Insulin Human Lispro (Humalog) 0 unit SQ Q6 [facility]; Protocol Last Admin: 06/16/20 18:41 Dose: Not Given Documented by: Lactulose (Cephulac) 10 gm PO DAILYP PRN PRN Reason: Constipation Levothyroxine Sodium (Synthroid) 75 mcg PO QAMAC [facility] Naloxone HCl (Narcan) 0.1 mg IV Q2MIN PRN PRN Reason: Opiate Reversal Nicotine (Nicoderm) 14 mg TOPICAL DAILY@1000 JARROD Ondansetron HCl (Zofran) 4 mg IV Q4HP PRN; Protocol PRN Reason: Nausea And Vomiting Pantoprazole Sodium (Protonix) 40 mg PO QAMAC [facility] Sertraline HCl (Zoloft) 100 mg PO DAILY [facility] Simvastatin (Zocor) 20 mg PO HS JARROD Sodium Chloride (Saline Flush) 10 ml IV Q12 JARROD Sodium Chloride (Saline Flush) 10 ml IV Q8 JARROD Sodium Chloride (Saline Flush) 10 ml IV UD PRN PRN Reason: FLUSH Sodium Phosphate (Pot Phosphate Neutral) 250 mg PO BID JARROD Tamsulosin HCl (Flomax) 0.4 mg PO QDAY JARROD Tramadol HCl (Ultram) 50 mg PO Q6HP PRN; Protocol PRN Reason: Pain ABG Interpretation ABG results: 06/16/20 12:30 ABG Methemoglobin 0.3 L VBG pH 7.48 H VBG pCO2 31.9 L VBG pO2 61 H VBG HCO3 23.0 L VBG Total CO2 24.0 L VBG O2 Saturation 86.5 H VBG Base Excess 0.2 A/P Narrative A/P Narrative: 1. Sepsis 2nd to pneumonia Blood culture IV fluid Repeat lactic acid 2. Postobstructive pneumnonia Sputum culture no growth COVID-19 negative MRSA screen negative zosyn 3. Metastatic lung cancer to T5? Smoker CT chest - "Suspect 4 cm left hilar mass encasing and narrowing the anterior segment left upper lobe bronchus and pulmonary artery. A large postobstructive alveolar infiltrate throughout most of the right upper lobe .... 5 cm osteolytic lesion destroying the right T5 vertebral body ..." Radiologist at Dr. Pabon would do biopsy today for him but the procedure was canceled because pt's status is not stable. 4. DM type 2. Hba1c 6.0 on 02/18/20 Diabetic diet Insulin sliding scale 5. Hypoglycemia Could be due to poor appetite. Patient does not want to eat anything Encouraged to eat and drink more IV D10NS 6. Hx of HTN Blood pressure is low now. Monitor 6. Leukocytosis 29 with band 22 Repeat a CBC in morning 7. Tobacco dependence Smoking cessation counseling Nicotine patch if necessary 8. Hx of alcohol abuse Has not been drinking over the past 5 years 9. Hyponatremia D5 normal saline Repeat electrolytes in the morning 10. Hypokalemia, hypomagnesium and hypophosphatemia given repeat in am 11. DVT prophylaxis: Heparin 12. CODE STATUS: Full. Time Spent With Patient Time: Total time spent is greater than 50% in coordination of care (as documented) at patient's floor/unit and/or counseling patient: QUALITY VTE Deep Vein Thrombosis/Pulmonary Embolism Present on Admission: No
[2020-06-16] MEDS ORDERED: SIMVASTATIN 20 MG TABLET PO SCH (21:00)
[2020-06-16] MEDS ORDERED: 0.9 % SODIUM CHLORIDE 10 ML SYRINGE IV SCH (21:00)
[2020-06-16] MEDS ORDERED: PHOSPHORUS 250 MG TABLET PO SCH (21:00)
[2020-06-16] MEDS ORDERED: PRAVASTATIN 40 MG TABLET PO SCH (21:00)
[2020-06-16] MEDS ORDERED: DIVALPROEX SODIUM 250 MG TABLET PO SCH (21:00)
[2020-06-16] MEDS: PHOSPHORUS 250 MG TABLET PO SCH (21:13)
[2020-06-16] MEDS: traMADol 50 MG TABLET PO PRN (21:13)
[2020-06-16] MEDS ORDERED: HYDROCORTISONE SOD SUCC 100 MG VIAL IV SCH (22:00)
[2020-06-17] MEDS: INSULIN LISPRO 1 UNIT/0.01 ML UNIT SQ SCH ×4 (00:56→20:52)
[2020-06-17] MEDS ORDERED: NOREPINEPHRINE BITARTRATE 16 MG in 0.9 % SODIUM CHLORIDE 234 ML IV SCH (02:45)
[2020-06-17] MEDS: PIPERACILLIN SODIUM/TAZOBACTAM 3.375 GM in DEXTROSE 5% IN WATER 50 ML IV SCH ×4 (05:45→23:57)
[2020-06-17] MEDS: 0.9 % SODIUM CHLORIDE 10 ML SYRINGE IV SCH ×6 (05:46→21:02)
[2020-06-17 07:19] LABS: INR 1.4 (0.9-1.1); Prothrombin Time 17.9 sec (11.9-14.5)
[2020-06-17] MEDS ORDERED: PANTOPRAZOLE 40 MG TABLET PO SCH (07:30)
[2020-06-17] MEDS ORDERED: NOREPINEPHRINE BITARTRATE 16 MG in 0.9 % SODIUM CHLORIDE 234 ML IV PRN ×2 (07:30→15:33)
[2020-06-17] MEDS ORDERED: LEVOTHYROXINE 75 MCG TABLET PO SCH (07:30)
--- NOTE | 2020-06-17 07:33 | Internal Med Progress Note ---
SUBJECTIVE Subjective Patient information: Note initiated : 06/17/20 at 7:26 am Service Date, if different from initiated Date: [] Patient: Ozzy Greenberg a 64 y/o M admitted on 06/15/20 for weakness. Chief Complaint: [] Interval history: History of present illness: Mr. Greenberg is a 64 year old M with a past medical history of current smoker, diabetes type 2, high blood pressure, and a history of alcohol abuse who presented to the ER due to weakness. As per patient, he fell multiple times during this weekend and today. He did not lose consciousness and he did not have head injury. Recently he has been feeling tired and have been having nausea, shortness of breath and poor appetite. He has lost significant body weight over the recent years. In the ER, chest CT showed metastatic neoplastic disease. Radiologist at Dr. Pabon will possibly do a biopsy for him tomorrow. When I saw this patient in the ER, other than symptoms mentioned above, he denied headache, chest pain, abdominal pain, hemoptysis, or change in vision. 06/16 Pt looks weak and tired. But no new complaits. He has hypotension has been low since admission. Phenylepirine was initially started but MAP could not be maintained 65. Levophed was added. His fluid status seems to be overloaded. Lasix 20mg x 2 was given. D5NS was changed to D10NA. Good urine output WBC 29.3 with bandemia, 22. K, mag and phos low. Replaced. Met and updated to daughter this morning. A family conference on tomorrow has been setup. 06/17 Doing much better today. Slept well. Off both vasopressors as of earlier this morning. Urine output adequate on average. He is on room air at this point. Vital signs stable. White blood cell count improved. He has a productive cough and some shortness of breath above baseline. Loose stool this morning. DC docusate Review of Systems: denies headache/fever/chills/nausea/vomiting/chest or abdominal pain/. Otherwise see above. Constitutional Vitals: Vital Signs Temp Pulse Resp BP Pulse Ox 98.0 F 98 H 27 H 105/72 93 06/17/20 04:00 06/17/20 06:00 06/17/20 06:00 06/17/20 06:00 06/17/20 06:46 Period Temp Pulse Resp BP Sys/Gale Pulse Ox Last 24 Hr 97.4 F-98.4 F 47-118 16-35 69-136/45-108 89-97 Intake and Output 06/16/20 06/17/20 06/17/20 21:59 05:59 13:59 Intake Total 366 766 Output Total 485 235 65 Balance -119 531 -65 Weight 54.97 kg Intake & Output: Intake & Output 06/16/20 06/17/20 06/17/20 21:59 05:59 13:59 Intake Total 366 766 Output Total 485 235 65 Balance -119 531 -65 Weight 54.97 kg Intake: IV 366 526 Sodium Chloride 0.9% 250 ml @ 0 20 mls/hr IV .[id number] JARROD Rx#: [id number] Dextrose 5%-Ns IV Solution 1, 0 000 ml @ 75 mls/hr IV .[id number] JARROD Rx#:[id number] Dextrose 50% 200 ml In Sodium 366 Chloride 0.9% 800 ml @ 25 mls/ hr IV Q24H JARROD Rx#:[id number] Levophed 16 mg In Sodium 12 110 Chloride 0.9% 234 ml @ 10 MCG/ MIN 9.375 mls/hr IV Q24H JARROD Rx #:[id number] Neosynephrine/Vazculep 20 mg In 304 Sodium Chloride 0.9% 248 ml @ 2 MCG/KG/MIN 79.733 mls/hr IV Q3H JARROD Rx#:[id number] Zosyn 3.375 gm In Dextrose 5% 50 50 in Water 50 ml @ 100 mls/hr IV Q8H JARROD Rx#:[id number] Oral 240 Output: Urine Catheter Amount 485 235 65 Other: Urine Appearance Clear Clear Clear Uretheral ([place]) Clear Clear Clear Urine Color Dark Minnie Dark Minnie Dark Minnie Uretheral ([place]) Dark Minnie Dark Minnie Dark Yellow Stool Size Smear Moderate Stool Color Brown Brown Stool Consistency Soft Loose # of times incontinent of 1 1 Bowels Exam: General: Awake, No acute Distress, cachectic in appearance Eyes/N/T: EOMI, Head/Neck: neck supple, CV: RRR, No murmurs, Pulm: Right clear left with rhonchi, no wheezing Abd: soft, nontender, +BS x4 Ext: no clubbing/cyanosis/edema Neuro: Alert, no focal deficits, moves all extremities, Skin: warm/dry OBJ DATA Labs CBC & Chem 7: 06/17/20 04:50 06/16/20 04:48 Labs: Abnormal Lab Results 06/17/20 06/17/20 06/16/20 04:50 04:50 12:30 WBC RBC Hgb Hct RDW Gran % Lymph % (Auto) Gran # Lymph # (Auto) [place] # (Auto) Band Neutrophils % 22 H Lymphocytes % 3 L PT 17.9 H INR 1.4 H ABG Methemoglobin VBG pH VBG pCO2 VBG pO2 VBG HCO3 VBG Total CO2 VBG O2 Saturation VBG Lactic Acid 2.5 H Carboxyhemoglobin Total Hemoglobin POC Sodium Sodium Potassium POC Chloride Chloride Carbon Dioxide Anion Gap Creatinine Glucose POC Glucose Calcium POC WB Ioniz Calcium Phosphorus Magnesium AST ALT Alkaline Phosphatase NT-Pro-B Natriuret Pep Total Protein Albumin Albumin/Globulin Ratio Ur Specific [place] 06/16/20 06/16/20 06/16/20 12:30 04:48 04:48 WBC 29.3 H RBC 4.04 L Hgb 12.3 L Hct 34.7 L RDW 15.0 H Gran % 95.1 H Lymph % (Auto) 2.1 L Gran # 27.86 H Lymph # (Auto) 0.62 L [place] # (Auto) Band Neutrophils % Lymphocytes % PT INR ABG Methemoglobin 0.3 L VBG pH 7.48 H VBG pCO2 31.9 L VBG pO2 61 H VBG HCO3 23.0 L VBG Total CO2 24.0 L VBG O2 Saturation 86.5 H VBG Lactic Acid 3.2 H Carboxyhemoglobin 4.6 H Total Hemoglobin 12.9 L POC Sodium Sodium Potassium POC Chloride Chloride Carbon Dioxide Anion Gap Creatinine Glucose POC Glucose Calcium POC WB Ioniz Calcium Phosphorus Magnesium AST ALT Alkaline Phosphatase NT-Pro-B Natriuret Pep Total Protein Albumin Albumin/Globulin Ratio Ur Specific [place] 06/16/20 06/16/20 06/15/20 04:48 04:48 15:25 WBC RBC Hgb Hct RDW Gran % Lymph % (Auto) Gran # Lymph # (Auto) [place] # (Auto) Band Neutrophils % Lymphocytes % PT 18.7 H INR 1.5 H ABG Methemoglobin VBG pH VBG pCO2 VBG pO2 VBG HCO3 VBG Total CO2 VBG O2 Saturation VBG Lactic Acid Carboxyhemoglobin Total Hemoglobin POC Sodium Sodium 130 L Potassium 3.1 L POC Chloride Chloride Carbon Dioxide Anion Gap Creatinine 0.5 L Glucose 110 H POC Glucose Calcium 8.4 L POC WB Ioniz Calcium Phosphorus 2.1 L Magnesium 1.4 L AST ALT Alkaline Phosphatase NT-Pro-B Natriuret Pep Total Protein 4.5 L Albumin 1.7 L Albumin/Globulin Ratio 0.6 L Ur Specific [place] 1.045 H 06/15/20 06/15/20 06/15/20 11:58 11:32 11:28 WBC 23.8 H RBC 4.01 L Hgb 12.0 L Hct 33.7 L RDW 14.7 H Gran % 94.7 H Lymph % (Auto) 0.8 L Gran # 22.56 H Lymph # (Auto) 0.18 L [place] # (Auto) 0.91 H Band Neutrophils % Lymphocytes % PT INR ABG Methemoglobin VBG pH VBG pCO2 VBG pO2 VBG HCO3 VBG Total CO2 VBG O2 Saturation VBG Lactic Acid 3.1 H Carboxyhemoglobin Total Hemoglobin POC Sodium 127 L Sodium 127 L Potassium POC Chloride 90 L Chloride 88 L Carbon Dioxide 19 L Anion Gap 20.0 H Creatinine Glucose 19 L* POC Glucose 23 L* Calcium POC WB Ioniz Calcium 1.11 L Phosphorus Magnesium AST 51 H ALT 42 H Alkaline Phosphatase 129 H NT-Pro-B Natriuret Pep Total Protein Albumin 2.6 L Albumin/Globulin Ratio 0.7 L Ur Specific [place] 06/15/20 10:32 WBC RBC Hgb Hct RDW Gran % Lymph % (Auto) Gran # Lymph # (Auto) [place] # (Auto) Band Neutrophils % Lymphocytes % PT INR ABG Methemoglobin VBG pH VBG pCO2 VBG pO2 VBG HCO3 VBG Total CO2 VBG O2 Saturation VBG Lactic Acid Carboxyhemoglobin Total Hemoglobin POC Sodium Sodium Potassium POC Chloride Chloride Carbon Dioxide Anion Gap Creatinine Glucose POC Glucose Calcium POC WB Ioniz Calcium Phosphorus Magnesium AST ALT Alkaline Phosphatase NT-Pro-B Natriuret Pep 2728.0 H Total Protein Albumin Albumin/Globulin Ratio Ur Specific [place] Meds: Medications Albuterol/Ipratropium (Duoneb) 3 ml NEB Q6HRT PRN PRN Reason: Shortness Of Breath Last Admin: 06/16/20 17:22 Dose: 3 ml Documented by: Dextrose (Dextrose 50%) 0 ml IV UD PRN PRN Reason: Hypoglycemia Diagnostic Test (Pha) (Accu-Chek) 1 each FS Q6 [facility] Last Admin: 06/17/20 05:45 Dose: 1 each Documented by: Divalproex Sodium (Depakote Er) 1,000 mg PO QHS [facility] Last Admin: 06/16/20 21:13 Dose: 1,000 mg Documented by: Docusate Sodium (Colace) 100 mg PO BID [facility] Last Admin: 06/16/20 20:20 Dose: Not Given Documented by: Fluticasone Propionate (Flonase) 1 spray NS QDAY [facility] Glucose (Insta-Glucose) 15 gm PO PRN PRN PRN Reason: Hypoglycemia Heparin Sodium (Porcine) (Heparin) 5,000 unit SQ Q12 [facility] Last Admin: 06/16/20 21:13 Dose: 5,000 unit Documented by: Hydromorphone HCl (Dilaudid) 1 mg IV Q4HP PRN; Protocol PRN Reason: Per Pain Protocol Piperacillin Sod/Tazobactam (Sod 3.375 gm/ Dextrose) 50 mls @ 100 mls/hr IV Q8H [facility]; Protocol Last Admin: 06/17/20 05:45 Dose: 100 mls/hr Documented by: Sodium Chloride (Sodium Chloride 0.9%) 250 mls @ 0 mls/hr IV DUR [facility]; Protocol Last Admin: 06/16/20 16:40 Dose: 11 mls/hr Documented by: Norepinephrine Bitartrate 16 (mg/ Sodium Chloride) 250 mls @ 9.375 mls/hr IV Q24HP PRN; Protocol PRN Reason: Hypotension Insulin Human Lispro (Humalog) 0 unit SQ Q6 [facility]; Protocol Last Admin: 06/17/20 05:45 Dose: Not Given Documented by: Lactulose (Cephulac) 10 gm PO DAILYP PRN PRN Reason: Constipation Levothyroxine Sodium (Synthroid) 75 mcg PO QAMAC [facility] Last Admin: 06/17/20 07:21 Dose: 75 mcg Documented by: Naloxone HCl (Narcan) 0.1 mg IV Q2MIN PRN PRN Reason: Opiate Reversal Nicotine (Nicoderm) 14 mg TOPICAL DAILY@1000 JARROD Ondansetron HCl (Zofran) 4 mg IV Q4HP PRN; Protocol PRN Reason: Nausea And Vomiting Pantoprazole Sodium (Protonix) 40 mg PO QAMAC [facility] Last Admin: 06/17/20 07:21 Dose: 40 mg Documented by: Sertraline HCl (Zoloft) 100 mg PO DAILY JARR[facility] Simvastatin (Zocor) 20 mg PO HS [facility] Last Admin: 06/16/20 21:14 Dose: 20 mg Documented by: Sodium Chloride (Saline Flush) 10 ml IV Q12 [facility] Last Admin: 06/16/20 21:14 Dose: 10 ml Documented by: Sodium Chloride (Saline Flush) 10 ml IV Q8 [facility] Last Admin: 06/17/20 05:46 Dose: 10 ml Documented by: Sodium Chloride (Saline Flush) 10 ml IV UD PRN PRN Reason: FLUSH Sodium Phosphate (Pot Phosphate Neutral) 250 mg PO BID [facility] Last Admin: 06/16/20 21:13 Dose: 250 mg Documented by: Tamsulosin HCl (Flomax) 0.4 mg PO QDAY JARROD Tramadol HCl (Ultram) 50 mg PO Q6HP PRN; Protocol PRN Reason: Pain Last Admin: 06/16/20 21:13 Dose: 50 mg Documented by: ABG Interpretation ABG results: 06/16/20 12:30 ABG Methemoglobin 0.3 L VBG pH 7.48 H VBG pCO2 31.9 L VBG pO2 61 H VBG HCO3 23.0 L VBG Total CO2 24.0 L VBG O2 Saturation 86.5 H VBG Base Excess 0.2 A/P Narrative A/P Narrative: A: *Septic Shock: 2/2 PNA, resolved -now off vasopressors -Blood culture - *Postobstructive pneumonia: 2/2 likely lung CA -Sputum culture pending, COVID-19 negative, MRSA screen neg *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 A large postobstructive alveolar infiltrate throughout most of the right upper lobe .... 5 cm osteolytic lesion destroying the right T5 vertebral body ..." -weight loss of about 30lbs since last year *Acute hypoxic Resp Failure: -now on room air from 5L NC *Tobacco dependence: *likely COPD based on imaging and h/o smoking *DM type 2: Hba1c 6.0 on 02/18/20 *Hypoglycemia: poor appetite. Patient does not want to eat anything -off D10 gtt *HTN: *Hx of alcohol abuse and chronic pancreatitis: has not been drinking over the past 5 years *Hyponatremia/hypokalemia/hypophosphatemia/hypomagnesemia: *GERD: *Depression/Bipolar: *Hypothyroidism: P: -Vasopressors off now -detention prognosis guarded in light of likely new metastatic CA diagnosis -IVF, s/p aggressive IVFs, wean off d5NS -cont zosyn for now, BC/SC pending -wean o2 as able -IS/Acapella -electrolyte replacement -Diabetic diet, Insulin sliding scale, hold glipizide/metformin -eventual biopsy if pt stabilizes, Dr. Gavin will possibly do a biopsy of T5 osteolytic metastases -Smoking cessation counseling/ Nicotine patch if necessary -ppx: Heparin/home ppi CODE STATUS: Full. Time Spent With Patient Time: Total time spent is greater than 50% in coordination of care (as documented) at patient's floor/unit and/or counseling patient: QUALITY VTE Deep Vein Thrombosis/Pulmonary Embolism Present on Admission: No
[2020-06-17] MEDS: DOCUSATE SODIUM 100 MG CAPSULE PO SCH (08:11)
[2020-06-17 08:16] LABS: Hematocrit 33.1 % (40.1-51.0); Hemoglobin 11.5 g/dL (13.7-17.5); Mean Cell Volume 84.9 fL (80.0-100.0); Mean Corpuscular HGB Conc 34.7 g/dL (31.0-36.0); Mean Platelet Volume 9.5 fL (7.4-10.4); Platelet Count 83 K/mcL (140-440); Red Cell Distribution Width 15.2 % (11.5-14.5); WBC 19.5 K/mcL (4.50-11.00)
[2020-06-17 08:27] LABS: Band Neutrophils % 7 % (0-10); Eosinophils % (Manual) 1 % (0-7); Lymphocytes % 4 % (15-49); Monocytes % (Manual) 5 % (1-12); Platelet Estimate DECREASED (NORMAL); RBC Morphology NORMAL (NORMAL); Segmented Neutrophils % 83 % (38-78)
[2020-06-17] MEDS: PHOSPHORUS 250 MG TABLET PO SCH (08:27)
[2020-06-17] MEDS: HEPARIN 5,000 UNIT/ML VIAL SQ SCH (08:28)
[2020-06-17] MEDS: traMADol 50 MG TABLET PO PRN ×3 (08:28→20:57)
[2020-06-17 08:30] LABS: ALT/SGPT 19 U/l (0-40); AST/SGOT 13 U/l (0-37); Alkaline Phosphatase 120 U/L (39-117); Bilirubin,Direct < 0.2 mg/dL (0.0-0.3); Bilirubin,Total 0.3 mg/dL (0.0-1.0); Blood Urea Nitrogen 13 mg/dl (8-23); Carbon Dioxide 24 mmol/L (22-30); Chloride 98 mmol/L (96-108); Glomerular Filtration Rate 127; Glucose 170 mg/dL (70-105); Lactate Dehydrogenase 218 U/L (94-250); Triglycerides 50 mg/dl (<150); Uric Acid 2.6 mg/dL (2.5-8.0)
[2020-06-17 08:31] LABS: Albumin 1.7 gm/dL (3.2-5.2); Albumin/Globulin Ratio 0.6 (1.0-2.3)
[2020-06-17] MEDS ORDERED: 0.9 % SODIUM CHLORIDE 250 ML IV ONE (08:50)
[2020-06-17] MEDS ORDERED: SERTRALINE 50 MG TABLET PO SCH (09:00)
[2020-06-17] MEDS ORDERED: TAMSULOSIN 0.4 MG CAPSULE PO SCH (09:00)
[2020-06-17] MEDS ORDERED: FLUTICASONE PROPIONATE SPRAY.NAS NS SCH (09:00)
[2020-06-17] MEDS ORDERED: POTASSIUM PHOSPHATE 40 MEQ in DEXTROSE 5% IN WATER 500 ML IV ONE (09:35)
[2020-06-17] MEDS ORDERED: DEXTROSE 50% IV SCH (10:00)
[2020-06-17] MEDS ORDERED: SODIUM CHLORIDE 0.9% IV SCH (10:00)
[2020-06-17] MEDS ORDERED: NICOTINE 14 MG PATCH TOPICAL SCH (10:00)
[2020-06-17] MEDS ORDERED: INSULIN LISPRO 1 UNIT/0.01 ML UNIT SQ SCH (11:30)
[2020-06-17] MEDS ORDERED: LOPERAMIDE 2 MG CAPSULE PO PRN (13:44)
[2020-06-17] MEDS ORDERED: IPRATROPIUM/ALBUTEROL 3 ML AMPUL.NEB NEB PRN (15:33)
[2020-06-17] MEDS ORDERED: 0.9 % SODIUM CHLORIDE 10 ML SYRINGE IV PRN (15:33)
[2020-06-17] MEDS ORDERED: IOPAMIDOL 100 ML BOTTLE IV ONE (15:33)
[2020-06-17] MEDS ORDERED: DEXTROSE 50% 50 ML VIAL IV PRN (15:33)
[2020-06-17] MEDS ORDERED: NALOXONE HCL 0.4 MG/ML VIAL IV PRN (15:33)
[2020-06-17] MEDS ORDERED: DEXTROSE 31 GM ORAL.SUSP PO PRN (15:33)
[2020-06-17] MEDS ORDERED: HYDROmorphone 1 MG/ML SYRINGE IV PRN (15:33)
[2020-06-17] MEDS ORDERED: LACTULOSE 20 GM/30 ML ORAL.SOL PO PRN (15:33)
[2020-06-17] MEDS ORDERED: 0.9 % SODIUM CHLORIDE 250 ML IV SCH (15:33)
[2020-06-17] MEDS ORDERED: ONDANSETRON 4 MG/2 ML VIAL IV PRN (15:33)
[2020-06-17] MEDS: LOPERAMIDE 2 MG CAPSULE PO PRN (16:33)
[2020-06-17] MEDS: DIVALPROEX SODIUM 250 MG TABLET PO SCH (20:56)
[2020-06-17] MEDS: SIMVASTATIN 20 MG TABLET PO SCH (20:57)
[2020-06-17] MEDS ORDERED: HEPARIN 5,000 UNIT/ML VIAL SQ SCH (21:00)
[2020-06-17] MEDS ORDERED: PHOSPHORUS 250 MG TABLET PO SCH (21:00)
[2020-06-18] MEDS: PIPERACILLIN SODIUM/TAZOBACTAM 3.375 GM in DEXTROSE 5% IN WATER 50 ML IV SCH ×4 (05:57→23:49)
[2020-06-18] MEDS: 0.9 % SODIUM CHLORIDE 10 ML SYRINGE IV SCH ×5 (05:57→21:42)
[2020-06-18] MEDS: LEVOTHYROXINE 75 MCG TABLET PO SCH (07:02)
[2020-06-18] MEDS: PANTOPRAZOLE 40 MG TABLET PO SCH (07:02)
[2020-06-18] MEDS: traMADol 50 MG TABLET PO PRN ×2 (07:03→14:05)
[2020-06-18] MEDS: INSULIN LISPRO 1 UNIT/0.01 ML UNIT SQ SCH ×4 (07:11→21:20)
[2020-06-18 07:26] LABS: ALT/SGPT 24 U/l (0-40); AST/SGOT 24 U/l (0-37); Albumin 1.6 gm/dL (3.2-5.2); Albumin/Globulin Ratio 0.5 (1.0-2.3); Alkaline Phosphatase 105 U/L (39-117); Bilirubin,Direct 0.2 mg/dL (0.0-0.3); Bilirubin,Total 0.4 mg/dL (0.0-1.0); Blood Urea Nitrogen 14 mg/dl (8-23); Calcium 9.5 mg/dl (8.6-10.4); Carbon Dioxide 26 mmol/L (22-30); Chloride 98 mmol/L (96-108); Globulin 3.1 gm/dL (2.2-3.7); Glomerular Filtration Rate 143; Glucose 93 mg/dL (70-105); Lactate Dehydrogenase 220 U/L (94-250); Phosphorous 2.1 mg/dL (2.7-4.5); Triglycerides 73 mg/dl (<150); Uric Acid 2.1 mg/dL (2.5-8.0)
[2020-06-18] MEDS ORDERED: MAGNESIUM SULFATE 8.12 MEQ in DEXTROSE 5% IN WATER 50 ML IV ONE (07:43)
[2020-06-18] MEDS ORDERED: POTASSIUM CHLORIDE 20 MEQ TABLET PO ONE ×2 (07:44→18:52)
[2020-06-18] MEDS ORDERED: POTASSIUM PHOSPHATE 20 MEQ in DEXTROSE 5% IN WATER 250 ML IV ONE (07:45)
--- NOTE | 2020-06-18 08:01 | Internal Med Progress Note ---
SUBJECTIVE Subjective Patient information: Note initiated : 06/18/20 at 7:56 am Service Date, if different from initiated Date: [] Patient: Ozzy Greenberg a 64 y/o M admitted on 06/15/20 for weakness. Chief Complaint: [] Interval history: History of present illness: Mr. Greenberg is a 64 year old M with a past medical history of current smoker, diabetes type 2, high blood pressure, and a history of alcohol abuse who presented to the ER due to weakness. As per patient, he fell multiple times during this weekend and today. He did not lose consciousness and he did not have head injury. Recently he has been feeling tired and have been having nausea, shortness of breath and poor appetite. He has lost significant body weight over the recent years. In the ER, chest CT showed metastatic neoplastic disease. Radiologist at Dr. Pabon will possibly do a biopsy for him tomorrow. When I saw this patient in the ER, other than symptoms mentioned above, he denied headache, chest pain, abdominal pain, hemoptysis, or change in vision. 06/16 Pt looks weak and tired. But no new complaits. He has hypotension has been low since admission. Phenylepirine was initially started but MAP could not be maintained 65. Levophed was added. His fluid status seems to be overloaded. Lasix 20mg x 2 was given. D5NS was changed to D10NA. Good urine output WBC 29.3 with bandemia, 22. K, mag and phos low. Replaced. Met and updated to daughter this morning. A family conference on tomorrow has been setup. 06/17 Doing much better today. Slept well. Off both vasopressors as of earlier this morning. Urine output adequate on average. He is on room air at this point. Vital signs stable. White blood cell count improved. He has a productive cough and some shortness of breath above baseline. Loose stool this morning. DC docusate 06/18 White blood cell count continues to improve. Procalcitonin improving. However the oxygenation fluctuates currently on 5 this morning. Potassium and phos low. Platelets have dropped from the mid 100s for the first several days to 83 yesterday 54 today. Will obtain HIT panel and changed heparin to Arixtra. Chest x-ray with improvement on the left infiltrate but new on the right. Concern for swallowing, nurse does report some coughing food and drink. Speech therapy to reevaluate today. Patient has productive cough. Shortness of breath waxes and wanes. He has chronic neck and shoulder pain but denies any back pain. Did discuss code status with him and he requested DNR. Review of Systems: denies headache/fever/chills/nausea/vomiting/chest or abdominal pain/. Otherwise see above. Constitutional Vitals: Vital Signs Temp Pulse Resp BP Pulse Ox 97.1 F 115 H 34 H 99/70 92 06/18/20 04:00 06/18/20 06:01 06/18/20 07:01 06/18/20 07:01 06/18/20 07:01 Period Temp Pulse Resp BP Sys/Gale Pulse Ox Last 24 Hr 97.1 F-98.0 F 96-121 9-34 84-131/56-95 85-95 Intake and Output 06/17/20 06/18/20 06/18/20 21:59 05:59 13:59 Intake Total 905 50 Output Total 380 300 35 Balance 525 -250 -35 Weight 54.975 kg Intake & Output: Intake & Output 06/17/20 06/18/20 06/18/20 21:59 05:59 13:59 Intake Total 905 50 Output Total 380 300 35 Balance 525 -250 -35 Weight 54.975 kg Intake: Nourishment/Supplement quantity 340 (ml) IV 100 50 Zosyn 3.375 gm In Dextrose 5% 100 50 in Water 50 ml @ 100 mls/hr IV Q6H [facility] Rx#:[id number] Oral 240 Other 225 Output: Urine Catheter Amount 380 300 35 Other: Meal Nourishment/Supplement Percent of Meal Consumed 100% Feeding Ability Independent Nourishment/Supplement name Boost Urine Appearance Clear Clear Clear Uretheral (Duncan) Clear Urine Color Pale Pale Uretheral (Duncan) Dark Minnie Urine Odor Normal # of times incontinent of 1 Bowels Exam: General: Awake, No acute Distress, cachectic in appearance Eyes/N/T: EOMI, Head/Neck: neck supple, CV: RRR, No murmurs, Pulm: b/l rhonchi/rales, no wheezing Abd: soft, nontender, +BS x4 Ext: no clubbing/cyanosis/edema Neuro: Alert, no focal deficits, moves all extremities, Skin: warm/dry OBJ DATA Labs CBC & Chem 7: 06/18/20 07:31 06/18/20 04:51 Labs: Abnormal Lab Results 06/18/20 06/17/20 06/17/20 04:51 04:50 04:50 WBC RBC Hgb Hct RDW Plt Count Gran % Lymph % (Auto) Gran # Lymph # (Auto) [place] # (Auto) Seg Neutrophils % Band Neutrophils % Lymphocytes % Platelet Estimate PT 17.9 H INR 1.4 H ABG Methemoglobin VBG pH VBG pCO2 VBG pO2 VBG HCO3 VBG Total CO2 VBG O2 Saturation VBG Lactic Acid 2.5 H Carboxyhemoglobin Total Hemoglobin POC Sodium Sodium Potassium 2.9 L* POC Chloride Chloride Carbon Dioxide Anion Gap Creatinine 0.3 L Glucose POC Glucose Uric Acid 2.1 L Calcium POC WB Ioniz Calcium Phosphorus 2.1 L Magnesium AST ALT Alkaline Phosphatase NT-Pro-B Natriuret Pep Total Protein 4.7 L Albumin 1.6 L Albumin/Globulin Ratio 0.5 L Prealbumin Ur Specific [place] 06/17/20 06/17/20 06/16/20 04:50 04:50 12:30 WBC 19.5 H RBC 3.90 L Hgb 11.5 L Hct 33.1 L RDW 15.2 H Plt Count 83 L Gran % Lymph % (Auto) Gran # Lymph # (Auto) [place] # (Auto) Seg Neutrophils % 83 H Band Neutrophils % 22 H Lymphocytes % 4 L 3 L Platelet Estimate Decreased A PT INR ABG Methemoglobin VBG pH VBG pCO2 VBG pO2 VBG HCO3 VBG Total CO2 VBG O2 Saturation VBG Lactic Acid Carboxyhemoglobin Total Hemoglobin POC Sodium Sodium Potassium 3.1 L POC Chloride Chloride Carbon Dioxide Anion Gap Creatinine 0.4 L Glucose 170 H POC Glucose Uric Acid Calcium POC WB Ioniz Calcium Phosphorus 2.0 L Magnesium AST ALT Alkaline Phosphatase 120 H NT-Pro-B Natriuret Pep Total Protein 4.7 L Albumin 1.7 L Albumin/Globulin Ratio 0.6 L Prealbumin 3.0 L Ur Specific [place] 06/16/20 06/16/20 06/16/20 12:30 04:48 04:48 WBC 29.3 H RBC 4.04 L Hgb 12.3 L Hct 34.7 L RDW 15.0 H Plt Count Gran % 95.1 H Lymph % (Auto) 2.1 L Gran # 27.86 H Lymph # (Auto) 0.62 L [place] # (Auto) Seg Neutrophils % Band Neutrophils % Lymphocytes % Platelet Estimate PT INR ABG Methemoglobin 0.3 L VBG pH 7.48 H VBG pCO2 31.9 L VBG pO2 61 H VBG HCO3 23.0 L VBG Total CO2 24.0 L VBG O2 Saturation 86.5 H VBG Lactic Acid 3.2 H Carboxyhemoglobin 4.6 H Total Hemoglobin 12.9 L POC Sodium Sodium Potassium POC Chloride Chloride Carbon Dioxide Anion Gap Creatinine Glucose POC Glucose Uric Acid Calcium POC WB Ioniz Calcium Phosphorus Magnesium AST ALT Alkaline Phosphatase NT-Pro-B Natriuret Pep Total Protein Albumin Albumin/Globulin Ratio Prealbumin Ur Specific [place] 06/16/20 06/16/20 06/15/20 04:48 04:48 15:25 WBC RBC Hgb Hct RDW Plt Count Gran % Lymph % (Auto) Gran # Lymph # (Auto) [place] # (Auto) Seg Neutrophils % Band Neutrophils % Lymphocytes % Platelet Estimate PT 18.7 H INR 1.5 H ABG Methemoglobin VBG pH VBG pCO2 VBG pO2 VBG HCO3 VBG Total CO2 VBG O2 Saturation VBG Lactic Acid Carboxyhemoglobin Total Hemoglobin POC Sodium Sodium 130 L Potassium 3.1 L POC Chloride Chloride Carbon Dioxide Anion Gap Creatinine 0.5 L Glucose 110 H POC Glucose Uric Acid Calcium 8.4 L POC WB Ioniz Calcium Phosphorus 2.1 L Magnesium 1.4 L AST ALT Alkaline Phosphatase NT-Pro-B Natriuret Pep Total Protein 4.5 L Albumin 1.7 L Albumin/Globulin Ratio 0.6 L Prealbumin Ur Specific [place] 1.045 H 06/15/20 06/15/20 06/15/20 11:58 11:32 11:28 WBC 23.8 H RBC 4.01 L Hgb 12.0 L Hct 33.7 L RDW 14.7 H Plt Count Gran % 94.7 H Lymph % (Auto) 0.8 L Gran # 22.56 H Lymph # (Auto) 0.18 L [place] # (Auto) 0.91 H Seg Neutrophils % Band Neutrophils % Lymphocytes % Platelet Estimate PT INR ABG Methemoglobin VBG pH VBG pCO2 VBG pO2 VBG HCO3 VBG Total CO2 VBG O2 Saturation VBG Lactic Acid 3.1 H Carboxyhemoglobin Total Hemoglobin POC Sodium 127 L Sodium 127 L Potassium POC Chloride 90 L Chloride 88 L Carbon Dioxide 19 L Anion Gap 20.0 H Creatinine Glucose 19 L* POC Glucose 23 L* Uric Acid Calcium POC WB Ioniz Calcium 1.11 L Phosphorus Magnesium AST 51 H ALT 42 H Alkaline Phosphatase 129 H NT-Pro-B Natriuret Pep Total Protein Albumin 2.6 L Albumin/Globulin Ratio 0.7 L Prealbumin Ur Specific [place] 06/15/20 10:32 WBC RBC Hgb Hct RDW Plt Count Gran % Lymph % (Auto) Gran # Lymph # (Auto) [place] # (Auto) Seg Neutrophils % Band Neutrophils % Lymphocytes % Platelet Estimate PT INR ABG Methemoglobin VBG pH VBG pCO2 VBG pO2 VBG HCO3 VBG Total CO2 VBG O2 Saturation VBG Lactic Acid Carboxyhemoglobin Total Hemoglobin POC Sodium Sodium Potassium POC Chloride Chloride Carbon Dioxide Anion Gap Creatinine Glucose POC Glucose Uric Acid Calcium POC WB Ioniz Calcium Phosphorus Magnesium AST ALT Alkaline Phosphatase NT-Pro-B Natriuret Pep 2728.0 H Total Protein Albumin Albumin/Globulin Ratio Prealbumin Ur Specific [place] Meds: Medications Albuterol/Ipratropium (Duoneb) 3 ml NEB Q6HRT PRN PRN Reason: Shortness Of Breath Dextrose (Dextrose 50%) 0 ml IV UD PRN PRN Reason: Hypoglycemia Diagnostic Test (Pha) (Accu-Chek) 1 each FS ACHS [facility] Last Admin: 06/18/20 07:05 Dose: 1 each Documented by: Divalproex Sodium (Depakote Er) 1,000 mg PO QHS [facility] Last Admin: 06/17/20 20:56 Dose: 1,000 mg Documented by: Fluticasone Propionate (Flonase) 1 spray NS QDAY [facility] Glucose (Insta-Glucose) 15 gm PO PRN PRN PRN Reason: Hypoglycemia Heparin Sodium (Porcine) (Heparin) 5,000 unit SQ Q12 [facility] Last Admin: 06/17/20 21:00 Dose: Not Given Documented by: Hydromorphone HCl (Dilaudid) 1 mg IV Q4HP PRN; Protocol PRN Reason: Per Pain Protocol Sodium Chloride (Sodium Chloride 0.9%) 250 mls @ 0 mls/hr IV DUR JARROD; Protocol Piperacillin Sod/Tazobactam (Sod 3.375 gm/ Dextrose) 50 mls @ 100 mls/hr IV Q6H [facility]; Protocol Last Admin: 06/18/20 05:57 Dose: 100 mls/hr Documented by: Norepinephrine Bitartrate 16 (mg/ Sodium Chloride) 250 mls @ 9.375 mls/hr IV Q24HP PRN; Protocol PRN Reason: Hypotension Magnesium Sulfate 8.12 meq/ (Dextrose) 52 mls @ 52 mls/hr IV ONCE ONE Stop: 06/18/20 08:42 Potassium Phosphate 20 meq/ (Dextrose) 254.5455 mls @ 127.273 mls/hr IV ONCE ONE Stop: 06/18/20 09:44 Insulin Human Lispro (Humalog) 0 unit SQ ACHS [facility]; Protocol Last Admin: 06/18/20 07:11 Dose: Not Given Documented by: Lactulose (Cephulac) 10 gm PO DAILYP PRN PRN Reason: Constipation Levothyroxine Sodium (Synthroid) 75 mcg PO QAMAC [facility] Last Admin: 06/18/20 07:02 Dose: 75 mcg Documented by: Loperamide HCl (Imodium) 2 mg PO PRN PRN PRN Reason: Diarrhea Last Admin: 06/17/20 16:33 Dose: 2 mg Documented by: Naloxone HCl (Narcan) 0.1 mg IV Q2MIN PRN PRN Reason: Opiate Reversal Nicotine (Nicoderm) 14 mg TOPICAL DAILY@1000 JARROD Ondansetron HCl (Zofran) 4 mg IV Q4HP PRN; Protocol PRN Reason: Nausea And Vomiting Pantoprazole Sodium (Protonix) 40 mg PO QAMAC [facility] Last Admin: 06/18/20 07:02 Dose: 40 mg Documented by: Sertraline HCl (Zoloft) 100 mg PO DAILY JARROD Simvastatin (Zocor) 20 mg PO HS [facility] Last Admin: 06/17/20 20:57 Dose: 20 mg Documented by: Sodium Chloride (Saline Flush) 10 ml IV Q12 [facility] Last Admin: 06/17/20 21:00 Dose: 10 ml Documented by: Sodium Chloride (Saline Flush) 10 ml IV Q8 [facility] Last Admin: 06/18/20 05:57 Dose: 10 ml Documented by: Sodium Chloride (Saline Flush) 10 ml IV UD PRN PRN Reason: FLUSH Tamsulosin HCl (Flomax) 0.4 mg PO QDAY JARROD Tramadol HCl (Ultram) 50 mg PO Q6HP PRN; Protocol PRN Reason: Pain Last Admin: 06/18/20 07:03 Dose: 50 mg Documented by: ABG Interpretation ABG results: 06/16/20 12:30 ABG Methemoglobin 0.3 L VBG pH 7.48 H VBG pCO2 31.9 L VBG pO2 61 H VBG HCO3 23.0 L VBG Total CO2 24.0 L VBG O2 Saturation 86.5 H VBG Base Excess 0.2 A/P Narrative A/P Narrative: A: *Septic Shock: 2/2 PNA, resolved -now off vasopressors -Blood culture neg *Postobstructive pneumonia: 2/2 likely lung CA -Sputum culture pending, COVID-19 negative, MRSA screen neg *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 A large postobstructive alveolar infiltrate throughout most of the right upper lobe .... 5 cm osteolytic lesion destroying the right T5 vertebral body ..." -weight loss of about 30lbs since last year *Acute hypoxic Resp Failure: poor reserve, can be on room air but then desats with movement -currently on 3-5L NC -concern for aspiration, O2 was good yesterday morning and new right side infiltrate and nurse noted cough with food/drink *Tobacco dependence: *likely COPD based on imaging and h/o smoking *DM type 2: Hba1c 6.0 on 02/18/20 *Hypoglycemia: poor appetite and was on oral hypoglycemics. 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
--- NOTE | 2020-06-18 08:35 | XRay Report ---
CLINICAL INFORMATION: Follow up pneumonia COMPARISON: 06/16/2020 FINDINGS: Heart size, mediastinum and pulmonary vessels are normal. Large left upper lobe infiltrate shows slight improved aeration. A new moderate-sized vague patchy right basilar infiltrate is developing. No effusion. IMPRESSION: Slight improvement in large left mid/ upper lung infiltrate. New moderate vague right basilar infiltrate. Interpreted and Authenticated by: Nando Gavin 06/18/20
[2020-06-18 08:39] LABS: Basophils # (Auto) 0.03 K/mcL (0.00-0.30); Basophils % (Auto) 0.2 % (0.0-2.0); Eosinophils # (Auto) 0 K/mcL (0.00-0.70); Eosinophils % (Auto) 0 % (0.0-7.0); Granulocytes % (Auto) 90.3 % (38.0-78.0); Hematocrit 34.8 % (40.1-51.0); Hemoglobin 12.1 g/dL (13.7-17.5); Lymphocytes # (Auto) 0.66 K/mcL (1.50-4.80); Lymphocytes % (Auto) 4.7 % (15.5-49.0); Mean Cell Volume 84.7 fL (80.0-100.0); Mean Corpuscular HGB Conc 34.8 g/dL (31.0-36.0); Mean Platelet Volume 9.9 fL (7.4-10.4); Monocytes # (Auto) 0.67 K/mcL (0.10-0.90); Monocytes % (Auto) 4.8 % (1.0-12.0); Platelet Count 54 K/mcL (140-440); RBC 4.11 M/mcL (4.63-6.08); Red Cell Distribution Width 15.1 % (11.5-14.5); WBC 13.9 K/mcL (4.50-11.00)
[2020-06-18] MEDS ORDERED: FONDAPARINUX SODIUM 2.5 MG/0.5 ML SYRINGE SQ SCH (09:00)
[2020-06-18] MEDS ORDERED: METOPROLOL TARTRATE 25 MG TABLET PO ONE (09:05)
[2020-06-18] MEDS: NICOTINE 14 MG PATCH TOPICAL SCH (09:50)
[2020-06-18] MEDS: SERTRALINE 50 MG TABLET PO SCH (09:51)
[2020-06-18] MEDS: TAMSULOSIN 0.4 MG CAPSULE PO SCH (09:53)
[2020-06-18] MEDS: FLUTICASONE PROPIONATE SPRAY.NAS NS SCH (09:59)
[2020-06-18] MEDS ORDERED: ALBUMIN HUMAN 12.5 GM/50 ML BAG IV ONE (12:00)
[2020-06-18] MEDS ORDERED: FUROSEMIDE 20 MG/2 ML VIAL IV ONE (12:00)
[2020-06-18] MEDS: METOPROLOL TARTRATE 25 MG TABLET PO SCH (21:19)
[2020-06-18] MEDS: SIMVASTATIN 20 MG TABLET PO SCH (21:19)
[2020-06-18] MEDS: DIVALPROEX SODIUM 250 MG TABLET PO SCH (21:39)
[2020-06-19] MEDS: 0.9 % SODIUM CHLORIDE 10 ML SYRINGE IV SCH ×5 (06:09→23:05)
[2020-06-19] MEDS: PIPERACILLIN SODIUM/TAZOBACTAM 3.375 GM in DEXTROSE 5% IN WATER 50 ML IV SCH ×2 (06:09→11:40)
[2020-06-19 06:55] LABS: ALT/SGPT 20 U/l (0-40); AST/SGOT 15 U/l (0-37); Alkaline Phosphatase 96 U/L (39-117); Bilirubin,Direct 0.3 mg/dL (0.0-0.3); Bilirubin,Total 0.4 mg/dL (0.0-1.0); Blood Urea Nitrogen 15 mg/dl (8-23); Calcium 9.3 mg/dl (8.6-10.4); Carbon Dioxide 29 mmol/L (22-30); Chloride 99 mmol/L (96-108); Glomerular Filtration Rate 143; Glucose 125 mg/dL (70-105); Lactate Dehydrogenase 162 U/L (94-250); Triglycerides 85 mg/dl (<150); Uric Acid 2.3 mg/dL (2.5-8.0)
[2020-06-19 06:56] LABS: Albumin 1.7 gm/dL (3.2-5.2); Albumin/Globulin Ratio 0.7 (1.0-2.3); Globulin 2.6 gm/dL (2.2-3.7); Phosphorous 2.3 mg/dL (2.7-4.5)
[2020-06-19 07:45] LABS: Basophils # (Auto) 0.02 K/mcL (0.00-0.30); Basophils % (Auto) 0.2 % (0.0-2.0); Eosinophils # (Auto) 0 K/mcL (0.00-0.70); Eosinophils % (Auto) 0 % (0.0-7.0); Granulocytes % (Auto) 87.4 % (38.0-78.0); Hematocrit 30.6 % (40.1-51.0); Hemoglobin 10.7 g/dL (13.7-17.5); Lymphocytes # (Auto) 0.57 K/mcL (1.50-4.80); Lymphocytes % (Auto) 6.7 % (15.5-49.0); Mean Cell Volume 84.8 fL (80.0-100.0); Mean Platelet Volume 9.6 fL (7.4-10.4); Monocytes # (Auto) 0.49 K/mcL (0.10-0.90); Monocytes % (Auto) 5.7 % (1.0-12.0); Platelet Count 37 K/mcL (140-440); RBC 3.61 M/mcL (4.63-6.08); Red Cell Distribution Width 14.9 % (11.5-14.5); WBC 8.6 K/mcL (4.50-11.00)
--- NOTE | 2020-06-19 07:56 | Internal Med Progress Note ---
SUBJECTIVE Subjective Patient information: Note initiated : 06/19/20 at 7:47 am Service Date, if different from initiated Date: [] Patient: Ozzy Greenberg a 64 y/o M admitted on 06/15/20 for weakness. Chief Complaint: [] Interval history: History of present illness: Mr. Greenberg is a 64 year old M with a past medical history of current smoker, diabetes type 2, high blood pressure, and a history of alcohol abuse who presented to the ER due to weakness. As per patient, he fell multiple times during this weekend and today. He did not lose consciousness and he did not have head injury. Recently he has been feeling tired and have been having nausea, shortness of breath and poor appetite. He has lost significant body weight over the recent years. In the ER, chest CT showed metastatic neoplastic disease. Radiologist at Dr. Pabon will possibly do a biopsy for him tomorrow. When I saw this patient in the ER, other than symptoms mentioned above, he denied headache, chest pain, abdominal pain, hemoptysis, or change in vision. 06/16 Pt looks weak and tired. But no new complaits. He has hypotension has been low since admission. Phenylepirine was initially started but MAP could not be maintained 65. Levophed was added. His fluid status seems to be overloaded. Lasix 20mg x 2 was given. D5NS was changed to D10NA. Good urine output WBC 29.3 with bandemia, 22. K, mag and phos low. Replaced. Met and updated to daughter this morning. A family conference on tomorrow has been setup. 06/17 Doing much better today. Slept well. Off both vasopressors as of earlier this morning. Urine output adequate on average. He is on room air at this point. Vital signs stable. White blood cell count improved. He has a productive cough and some shortness of breath above baseline. Loose stool this morning. DC docusate 06/18 White blood cell count continues to improve. Procalcitonin improving. However the oxygenation fluctuates currently on 5 this morning. Potassium and phos low. Platelets have dropped from the mid 100s for the first several days to 83 yesterday 54 today. Will obtain HIT panel and changed heparin to Arixtra. Chest x-ray with improvement on the left infiltrate but new on the right. Concern for swallowing, nurse does report some coughing food and drink. Speech therapy to reevaluate today. Patient has productive cough. Shortness of breath waxes and wanes. He has chronic neck and shoulder pain but denies any back pain. Did discuss code status with him and he requested DNR. 06/19 No issues overnight. No new complaints. Platelets decreased again today. Leukocytosis resolved. Back down to 2 L of nasal cannula oxygen. Review of Systems: denies headache/fever/chills/nausea/vomiting/chest or abdominal pain/. Otherwise see above. Constitutional Vitals: Vital Signs Temp Pulse Resp BP Pulse Ox 97.9 F 115 H 18 121/80 92 06/19/20 04:00 06/18/20 06:01 06/19/20 06:00 06/19/20 06:00 06/19/20 06:00 Period Temp Pulse Resp BP Sys/Gale Pulse Ox Last 24 Hr 97.1 F-98.7 F 16-31 93-127/63-101 90-97 Intake and Output 06/18/20 06/19/20 06/19/20 21:59 05:59 13:59 Intake Total 50 50 Output Total 1075 205 25 Balance -1025 -155 -25 Weight 55.338 kg Intake & Output: Intake & Output 06/18/20 06/19/20 06/19/20 21:59 05:59 13:59 Intake Total 50 50 Output Total 1075 205 25 Balance -1025 -155 -25 Weight 55.338 kg Intake: IV 50 50 Zosyn 3.375 gm In Dextrose 5% 50 50 in Water 50 ml @ 100 mls/hr IV Q6H PENDING SALE TO [facility] Rx#:[id number] Output: Urine Catheter Amount 1075 205 25 Other: Urine Appearance Clear Clear Clear Uretheral (Duncan) Clear Urine Color Dark Yellow Dark Yellow Dark Yellow Uretheral (Duncan) Light Minnie Urine Odor Normal Uretheral (Duncan) Normal Stool Size Small Moderate Stool Color Brown Brown Yellow Stool Consistency Loose Soft Loose # Bowel Movements 1 # of times incontinent of 1 Bowels Exam: General: Awake, No acute Distress, cachectic in appearance Eyes/N/T: EOMI, Head/Neck: neck supple, CV: RRR, No murmurs, Pulm: right side clearing up, left side rhonchi, no wheezing Abd: soft, nontender, +BS x4 Ext: no clubbing/cyanosis/edema Neuro: Alert, no focal deficits, moves all extremities, Skin: warm/dry OBJ DATA Labs CBC & Chem 7: 06/19/20 05:15 06/19/20 05:15 Labs: Abnormal Lab Results 06/19/20 06/19/20 06/18/20 05:15 05:15 16:17 WBC RBC 3.61 L Hgb 10.7 L Hct 30.6 L RDW 14.9 H Plt Count 37 L* Gran % 87.4 H Lymph % (Auto) 6.7 L Gran # Lymph # (Auto) 0.57 L Seg Neutrophils % Band Neutrophils % Lymphocytes % Platelet Estimate PT INR ABG Methemoglobin VBG pH VBG pCO2 VBG pO2 VBG HCO3 VBG Total CO2 VBG O2 Saturation VBG Lactic Acid Carboxyhemoglobin Total Hemoglobin Sodium Potassium 3.1 L 3.1 L Creatinine 0.3 L Glucose 125 H Uric Acid 2.3 L Calcium Phosphorus 2.3 L Magnesium Alkaline Phosphatase Total Protein 4.3 L Albumin 1.7 L Albumin/Globulin Ratio 0.7 L Prealbumin Cortisol AM Sample 06/18/20 06/18/20 06/18/20 07:31 04:57 04:51 WBC 13.9 H RBC 4.11 L Hgb 12.1 L Hct 34.8 L RDW 15.1 H Plt Count 54 L Gran % 90.3 H Lymph % (Auto) 4.7 L Gran # 12.57 H Lymph # (Auto) 0.66 L Seg Neutrophils % Band Neutrophils % Lymphocytes % Platelet Estimate PT INR ABG Methemoglobin VBG pH VBG pCO2 VBG pO2 VBG HCO3 VBG Total CO2 VBG O2 Saturation VBG Lactic Acid Carboxyhemoglobin Total Hemoglobin Sodium Potassium 2.9 L* Creatinine 0.3 L Glucose Uric Acid 2.1 L Calcium Phosphorus 2.1 L Magnesium Alkaline Phosphatase Total Protein 4.7 L Albumin 1.6 L Albumin/Globulin Ratio 0.5 L Prealbumin Cortisol AM Sample 32.1 H 06/17/20 06/17/20 06/17/20 04:50 04:50 04:50 WBC 19.5 H RBC 3.90 L Hgb 11.5 L Hct 33.1 L RDW 15.2 H Plt Count 83 L Gran % Lymph % (Auto) Gran # Lymph # (Auto) Seg Neutrophils % 83 H Band Neutrophils % Lymphocytes % 4 L Platelet Estimate Decreased A PT 17.9 H INR 1.4 H ABG Methemoglobin VBG pH VBG pCO2 VBG pO2 VBG HCO3 VBG Total CO2 VBG O2 Saturation VBG Lactic Acid 2.5 H Carboxyhemoglobin Total Hemoglobin Sodium Potassium Creatinine Glucose Uric Acid Calcium Phosphorus Magnesium Alkaline Phosphatase Total Protein Albumin Albumin/Globulin Ratio Prealbumin Cortisol AM Sample 06/17/20 06/16/20 06/16/20 04:50 12:30 12:30 WBC RBC Hgb Hct RDW Plt Count Gran % Lymph % (Auto) Gran # Lymph # (Auto) Seg Neutrophils % Band Neutrophils % 22 H Lymphocytes % 3 L Platelet Estimate PT INR ABG Methemoglobin 0.3 L VBG pH 7.48 H VBG pCO2 31.9 L VBG pO2 61 H VBG HCO3 23.0 L VBG Total CO2 24.0 L VBG O2 Saturation 86.5 H VBG Lactic Acid Carboxyhemoglobin 4.6 H Total Hemoglobin 12.9 L Sodium Potassium 3.1 L Creatinine 0.4 L Glucose 170 H Uric Acid Calcium Phosphorus 2.0 L Magnesium Alkaline Phosphatase 120 H Total Protein 4.7 L Albumin 1.7 L Albumin/Globulin Ratio 0.6 L Prealbumin 3.0 L Cortisol AM Sample 06/16/20 06/16/20 04:48 04:48 WBC 29.3 H RBC 4.04 L Hgb 12.3 L Hct 34.7 L RDW 15.0 H Plt Count Gran % 95.1 H Lymph % (Auto) 2.1 L Gran # 27.86 H Lymph # (Auto) 0.62 L Seg Neutrophils % Band Neutrophils % Lymphocytes % Platelet Estimate PT INR ABG Methemoglobin VBG pH VBG pCO2 VBG pO2 VBG HCO3 VBG Total CO2 VBG O2 Saturation VBG Lactic Acid Carboxyhemoglobin Total Hemoglobin Sodium 130 L Potassium 3.1 L Creatinine 0.5 L Glucose 110 H Uric Acid Calcium 8.4 L Phosphorus 2.1 L Magnesium 1.4 L Alkaline Phosphatase Total Protein 4.5 L Albumin 1.7 L Albumin/Globulin Ratio 0.6 L Prealbumin Cortisol AM Sample Meds: Medications Albuterol/Ipratropium (Duoneb) 3 ml NEB Q6HRT PRN PRN Reason: Shortness Of Breath Dextrose (Dextrose 50%) 0 ml IV UD PRN PRN Reason: Hypoglycemia Diagnostic Test (Pha) (Accu-Chek) 1 each FS ACHS PENDING SALE TO [facility] Last Admin: 06/18/20 21:19 Dose: 1 each Documented by: Divalproex Sodium (Depakote Er) 1,000 mg PO QHS PENDING SALE TO [facility] Last Admin: 06/18/20 21:39 Dose: 1,000 mg Documented by: Fluticasone Propionate (Flonase) 1 spray NS QDAY PENDING SALE TO [facility] Last Admin: 06/18/20 09:59 Dose: Not Given Documented by: Fondaparinux (Arixtra) 2.5 mg SQ DAILY PENDING SALE TO [facility] Last Admin: 06/18/20 10:01 Dose: 2.5 mg Documented by: Glucose (Insta-Glucose) 15 gm PO PRN PRN PRN Reason: Hypoglycemia Hydromorphone HCl (Dilaudid) 1 mg IV Q4HP PRN; Protocol PRN Reason: Per Pain Protocol Sodium Chloride (Sodium Chloride 0.9%) 250 mls @ 0 mls/hr IV DUR PENDING SALE TO [facility]; Protocol Piperacillin Sod/Tazobactam (Sod 3.375 gm/ Dextrose) 50 mls @ 100 mls/hr IV Q6H PENDING SALE TO [facility]; Protocol Last Admin: 06/19/20 06:09 Dose: 100 mls/hr Documented by: Norepinephrine Bitartrate 16 (mg/ Sodium Chloride) 250 mls @ 9.375 mls/hr IV Q24HP PRN; Protocol PRN Reason: Hypotension Insulin Human Lispro (Humalog) 0 unit SQ [facility] PENDING SALE TO [facility]; Protocol Last Admin: 06/18/20 21:20 Dose: Not Given Documented by: Lactulose (Cephulac) 10 gm PO DAILYP PRN PRN Reason: Constipation Levothyroxine Sodium (Synthroid) 75 mcg PO QAMAC PENDING SALE TO [facility] Last Admin: 06/18/20 07:02 Dose: 75 mcg Documented by: Loperamide HCl (Imodium) 2 mg PO PRN PRN PRN Reason: Diarrhea Last Admin: 06/17/20 16:33 Dose: 2 mg Documented by: Metoprolol Tartrate (Lopressor) 25 mg PO BID PENDING S[facility] Last Admin: 06/18/20 21:19 Dose: 25 mg Documented by: Naloxone HCl (Narcan) 0.1 mg IV Q2MIN PRN PRN Reason: Opiate Reversal Nicotine (Nicoderm) 14 mg TOPICAL DAILY@1000 PEND[facility] Last Admin: 06/18/20 09:50 Dose: 14 mg Documented by: Ondansetron HCl (Zofran) 4 mg IV Q4HP PRN; Protocol PRN Reason: Nausea And Vomiting Pantoprazole Sodium (Protonix) 40 mg PO QAMAC PENDING SALE [facility] Last Admin: 06/18/20 07:02 Dose: 40 mg Documented by: Sertraline HCl (Zoloft) 100 mg PO DAILY [facility] Last Admin: 06/18/20 09:51 Dose: 100 mg Documented by: Simvastatin (Zocor) 20 mg PO HS [facility]ENDING S[facility] Last Admin: 06/18/20 21:19 Dose: 20 mg Documented by: Sodium Chloride (Saline Flush) 10 ml IV Q12 [facility]END[facility] Last Admin: 06/18/20 21:20 Dose: 10 ml Documented by: Sodium Chloride (Saline Flush) 10 ml IV Q8 [facility]END[facility] Last Admin: 06/19/20 06:09 Dose: 10 ml Documented by: Sodium Chloride (Saline Flush) 10 ml IV UD PRN PRN Reason: FLUSH Tamsulosin HCl (Flomax) 0.4 mg PO QDAY [facility]ENDING [facility] Last Admin: 06/18/20 09:53 Dose: 0.4 mg Documented by: Tramadol HCl (Ultram) 50 mg PO Q6HP PRN; Protocol PRN Reason: Pain Last Admin: 06/18/20 14:05 Dose: 50 mg Documented by: ABG Interpretation ABG results: 06/16/20 12:30 ABG Methemoglobin 0.3 L VBG pH 7.48 H VBG pCO2 31.9 L VBG pO2 61 H VBG HCO3 23.0 L VBG Total CO2 24.0 L VBG O2 Saturation 86.5 H VBG Base Excess 0.2 A/P Narrative A/P Narrative: A: *Septic Shock: 2/2 PNA, resolved *Postobstructive pneumonia: 2/2 likely lung CA -Sputum culture pending, COVID-19 negative, MRSA screen neg -leukocytosis resolved *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 A large postobstructive alveolar infiltrate throughout most of the right upper lobe .... 5 cm osteolytic lesion destroying the right T5 vertebral body ..." -weight loss of about 30lbs since last year *Acute hypoxic Resp Failure: poor reserve, can be on room air but then desats with movement -currently on 2L N NC *Likely Aspiration and has Mod Oropharyngeal Dysphagia: -diet modified by ST -cxr left side improved but new right side, nurse noted cough with food/drink, seen by Speech *Tobacco dependence: *likely COPD based on imaging and h/o smoking *DM type 2: Hba1c 6.0 on 02/18/20 *Hypoglycemia: poor appetite and was on oral hypoglycemics. Patient does not want to eat anything -resolved *HTN: *Hx of alcohol abuse and chronic pancreatitis: has not been drinking over the past 5 years *Hyponatremia/hypokalemia/hypophosphatemia/hypomagnesemia: improved *GERD: *Depression/Bipolar: *Hypothyroidism: tsh *Thrombocytopenia: critical illness + malignancy vs HIT vs other -37<54<83<181<149 P: -terminal operations supervisor prognosis guarded in light of likely new metastatic CA diagnosis -cont zosyn for now, BC/SC pending -wean o2 as able -IS/Acapella -electrolyte replacement -check HIT panel, d/c heparin; DIC panel and peripheral smear pending -cont home BB at reduced dose for low-normal BP, lasix held -Diabetic diet, Insulin sliding scale, hold glipizide/metformin -pending biopsy by Dr. Gavin of T5 osteolytic met -diet per ST -Smoking cessation counseling/ Nicotine patch if necessary -f/u with Oncology outpt -ppx: Fondaparinux(hold for <50k)/home ppi CODE STATUS:DNR Time Spent With Patient Time: Total time spent is greater than 50% in coordination of care (as documented) at patient's floor/unit and/or counseling patient: QUALITY VTE Deep Vein Thrombosis/Pulmonary Embolism Present on Admission: No
[2020-06-19] MEDS: INSULIN LISPRO 1 UNIT/0.01 ML UNIT SQ SCH ×4 (08:20→21:03)
[2020-06-19] MEDS ORDERED: MAGNESIUM SULFATE 8.12 MEQ in DEXTROSE 5% IN WATER 50 ML IV ONE (08:44)
[2020-06-19] MEDS: PANTOPRAZOLE 40 MG TABLET PO SCH (09:06)
[2020-06-19] MEDS: SERTRALINE 50 MG TABLET PO SCH (09:06)
[2020-06-19] MEDS: traMADol 50 MG TABLET PO PRN ×2 (09:06→21:02)
[2020-06-19] MEDS: LEVOTHYROXINE 75 MCG TABLET PO SCH (09:07)
[2020-06-19] MEDS: METOPROLOL TARTRATE 25 MG TABLET PO SCH ×2 (09:07→21:02)
[2020-06-19] MEDS: TAMSULOSIN 0.4 MG CAPSULE PO SCH (09:07)
[2020-06-19] MEDS: FLUTICASONE PROPIONATE SPRAY.NAS NS SCH (09:07)
[2020-06-19] MEDS: NICOTINE 14 MG PATCH TOPICAL SCH (09:10)
[2020-06-19 09:51] LABS: Hepatitis B Surface Antigen NEGATIVE (NEGATIVE); Hepatitis C Virus Antibody NON REACTIVE (NEGATIVE)
[2020-06-19 09:52] LABS: Thyroid Stimulating Hormone 1.64 uIU/ml (0.27-5.01)
[2020-06-19] MEDS: POTASSIUM CHLORIDE 20 MEQ TABLET PO SCH ×2 (11:41→17:41)
[2020-06-19] MEDS: LEVOFLOXACIN 750 MG/150 ML BAG IV SCH (15:15)
[2020-06-19] MEDS: DIVALPROEX SODIUM 250 MG TABLET PO SCH (21:01)
[2020-06-19] MEDS: SIMVASTATIN 20 MG TABLET PO SCH (21:02)
[2020-06-19] MEDS: LOPERAMIDE 2 MG CAPSULE PO PRN (21:03)
[2020-06-20] MEDS: 0.9 % SODIUM CHLORIDE 10 ML SYRINGE IV SCH ×4 (05:37→21:33)
[2020-06-20 06:26] LABS: Hematocrit 30.8 % (40.1-51.0); Hemoglobin 10.6 g/dL (13.7-17.5); Mean Cell Volume 85.3 fL (80.0-100.0); Mean Corpuscular HGB Conc 34.4 g/dL (31.0-36.0); Mean Platelet Volume 10.8 fL (7.4-10.4); RBC 3.61 M/mcL (4.63-6.08); Red Cell Distribution Width 14.6 % (11.5-14.5); WBC 8.5 K/mcL (4.50-11.00)
[2020-06-20 06:29] LABS: ALT/SGPT 17 U/l (0-40); AST/SGOT 13 U/l (0-37); Alkaline Phosphatase 89 U/L (39-117); Bilirubin,Direct 0.3 mg/dL (0.0-0.3); Bilirubin,Total 0.5 mg/dL (0.0-1.0); Blood Urea Nitrogen 18 mg/dl (8-23); Calcium 9.5 mg/dl (8.6-10.4); Carbon Dioxide 29 mmol/L (22-30); Chloride 100 mmol/L (96-108); Glomerular Filtration Rate 143; Glucose 101 mg/dL (70-105); Lactate Dehydrogenase 151 U/L (94-250); Phosphorous 2.6 mg/dL (2.7-4.5); Triglycerides 81 mg/dl (<150); Uric Acid 2.6 mg/dL (2.5-8.0)
[2020-06-20 06:31] LABS: Albumin 1.8 gm/dL (3.2-5.2); Albumin/Globulin Ratio 0.7 (1.0-2.3); Globulin 2.5 gm/dL (2.2-3.7)
[2020-06-20 06:46] LABS: Platelet Count 36 K/mcL (140-440)
[2020-06-20 07:32] LABS: Band Neutrophils % 8 % (0-10); Eosinophils % (Manual) 1 % (0-7); Lymphocytes % 4 % (15-49); Microcytosis FEW (NONE SEEN); Monocytes % (Manual) 7 % (1-12); Ovalocytes FEW (NONE SEEN); Platelet Estimate MK DECR (NORMAL); RBC Morphology ABNORM (NORMAL); Reactive Lymphocytes 1 % (0-2); Segmented Neutrophils % 79 % (38-78); Toxic Granulation FEW (NONE SEEN)
[2020-06-20] MEDS: PANTOPRAZOLE 40 MG TABLET PO SCH (07:46)
[2020-06-20] MEDS: LEVOTHYROXINE 75 MCG TABLET PO SCH (07:47)
--- NOTE | 2020-06-20 07:57 | Internal Med Progress Note ---
SUBJECTIVE Subjective Patient information: Note initiated : 06/20/20 at 7:50 am Service Date, if different from initiated Date: [] Patient: Ozzy Greenberg a 64 y/o M admitted on 06/15/20 for weakness. Chief Complaint: [] Interval history: History of present illness: Mr. Greenberg is a 64 year old M with a past medical history of current smoker, diabetes type 2, high blood pressure, and a history of alcohol abuse who presented to the ER due to weakness. As per patient, he fell multiple times during this weekend and today. He did not lose consciousness and he did not have head injury. Recently he has been feeling tired and have been having nausea, shortness of breath and poor appetite. He has lost significant body weight over the recent years. In the ER, chest CT showed metastatic neoplastic disease. Radiologist at Dr. Pabon will possibly do a biopsy for him tomorrow. When I saw this patient in the ER, other than symptoms mentioned above, he denied headache, chest pain, abdominal pain, hemoptysis, or change in vision. 06/16 Pt looks weak and tired. But no new complaits. He has hypotension has been low since admission. Phenylepirine was initially started but MAP could not be maintained 65. Levophed was added. His fluid status seems to be overloaded. Lasix 20mg x 2 was given. D5NS was changed to D10NA. Good urine output WBC 29.3 with bandemia, 22. K, mag and phos low. Replaced. Met and updated to daughter this morning. A family conference on tomorrow has been setup. 06/17 Doing much better today. Slept well. Off both vasopressors as of earlier this morning. Urine output adequate on average. He is on room air at this point. Vital signs stable. White blood cell count improved. He has a productive cough and some shortness of breath above baseline. Loose stool this morning. DC docusate 06/18 White blood cell count continues to improve. Procalcitonin improving. However the oxygenation fluctuates currently on 5 this morning. Potassium and phos low. Platelets have dropped from the mid 100s for the first several days to 83 yesterday 54 today. Will obtain HIT panel and changed heparin to Arixtra. Chest x-ray with improvement on the left infiltrate but new on the right. Concern for swallowing, nurse does report some coughing food and drink. Speech therapy to reevaluate today. Patient has productive cough. Shortness of breath waxes and wanes. He has chronic neck and shoulder pain but denies any back pain. Did discuss code status with him and he requested DNR. 06/19 No issues overnight. No new complaints. Platelets decreased again today. Leukocytosis resolved. Back down to 2 L of nasal cannula oxygen. Platelets similar to yesterday. 06/20 No real issues overnight. He does desat more when he sleeping and was up to 5 L while sleeping. Down to 2 with good sats while awake. Has productive cough and shortness of breath, otherwise no new complaints. Pending HIT panel. Review of Systems: denies headache/fever/chills/nausea/vomiting/chest or abdominal pain/. Otherwise see above. Constitutional Vitals: Vital Signs Temp Pulse Resp BP Pulse Ox 97.3 F 115 H 22 115/70 93 06/20/20 07:00 06/18/20 06:01 06/20/20 07:00 06/20/20 07:00 06/20/20 07:00 Period Temp Pulse Resp BP Sys/Gale Pulse Ox Last 24 Hr 96.9 F-98.7 F 16-22 98-158/65-136 87-98 Intake and Output 06/19/20 06/20/20 06/20/20 21:59 05:59 13:59 Intake Total 150 Output Total 395 360 Balance -245 -360 Weight 55.61 kg Intake & Output: Intake & Output 06/19/20 06/20/20 06/20/20 21:59 05:59 13:59 Intake Total 150 Output Total 395 360 Balance -245 -360 Weight 55.61 kg Intake: IV 150 Output: Urine Catheter Amount 395 360 Other: Urine Appearance Clear Clear Urine Color Light Minnie Dark Yellow Urine Odor Normal Stool Size Moderate Stool Color Brown Stool Consistency Soft Loose # of times incontinent of 1 1 Bowels Exam: General: Awake, No acute Distress, cachectic in appearance Eyes/N/T: EOMI, Head/Neck: neck supple, CV: RRR, No murmurs, Pulm: right side clearing up, left side rhonchi, no wheezing Abd: soft, nontender, +BS x4 Ext: no clubbing/cyanosis/edema Neuro: Alert, no focal deficits, moves all extremities, Skin: warm/dry OBJ DATA Labs CBC & Chem 7: 06/20/20 05:00 06/20/20 05:00 Labs: Abnormal Lab Results 06/20/20 06/20/20 06/19/20 05:00 05:00 08:37 WBC RBC 3.61 L Hgb 10.6 L Hct 30.8 L RDW 14.6 H Plt Count 36 L* MPV 10.8 H Gran % Lymph % (Auto) Gran # Lymph # (Auto) Seg Neutrophils % 79 H Lymphocytes % 4 L WBC Morphology Abnorm A Toxic Granulation Few A Platelet Estimate Mk decr A RBC Morphology Abnorm A Microcytosis Few A Ovalocytes Few A Haptoglobin 258 H Potassium Creatinine 0.3 L Glucose Uric Acid Phosphorus 2.6 L Alkaline Phosphatase Total Protein 4.3 L Albumin 1.8 L Albumin/Globulin Ratio 0.7 L Prealbumin Cortisol AM Sample 06/19/20 06/19/20 06/18/20 05:15 05:15 16:17 WBC RBC 3.61 L Hgb 10.7 L Hct 30.6 L RDW 14.9 H Plt Count 37 L* MPV Gran % 87.4 H Lymph % (Auto) 6.7 L Gran # Lymph # (Auto) 0.57 L Seg Neutrophils % Lymphocytes % WBC Morphology Toxic Granulation Platelet Estimate RBC Morphology Microcytosis Ovalocytes Haptoglobin Potassium 3.1 L 3.1 L Creatinine 0.3 L Glucose 125 H Uric Acid 2.3 L Phosphorus 2.3 L Alkaline Phosphatase Total Protein 4.3 L Albumin 1.7 L Albumin/Globulin Ratio 0.7 L Prealbumin Cortisol AM Sample 06/18/20 06/18/20 06/18/20 07:31 04:57 04:51 WBC 13.9 H RBC 4.11 L Hgb 12.1 L Hct 34.8 L RDW 15.1 H Plt Count 54 L MPV Gran % 90.3 H Lymph % (Auto) 4.7 L Gran # 12.57 H Lymph # (Auto) 0.66 L Seg Neutrophils % Lymphocytes % WBC Morphology Toxic Granulation Platelet Estimate RBC Morphology Microcytosis Ovalocytes Haptoglobin Potassium 2.9 L* Creatinine 0.3 L Glucose Uric Acid 2.1 L Phosphorus 2.1 L Alkaline Phosphatase Total Protein 4.7 L Albumin 1.6 L Albumin/Globulin Ratio 0.5 L Prealbumin Cortisol AM Sample 32.1 H 06/17/20 06/17/20 04:50 04:50 WBC 19.5 H RBC 3.90 L Hgb 11.5 L Hct 33.1 L RDW 15.2 H Plt Count 83 L MPV Gran % Lymph % (Auto) Gran # Lymph # (Auto) Seg Neutrophils % 83 H Lymphocytes % 4 L WBC Morphology Toxic Granulation Platelet Estimate Decreased A RBC Morphology Microcytosis Ovalocytes Haptoglobin Potassium 3.1 L Creatinine 0.4 L Glucose 170 H Uric Acid Phosphorus 2.0 L Alkaline Phosphatase 120 H Total Protein 4.7 L Albumin 1.7 L Albumin/Globulin Ratio 0.6 L Prealbumin 3.0 L Cortisol AM Sample Meds: Medications Albuterol/Ipratropium (Duoneb) 3 ml NEB Q6HRT PRN PRN Reason: Shortness Of Breath Dextrose (Dextrose 50%) 0 ml IV UD PRN PRN Reason: Hypoglycemia Diagnostic Test (Pha) (Accu-Chek) 1 each FS ACHS [facility] Last Admin: 06/19/20 21:01 Dose: 1 each Documented by: Divalproex Sodium (Depakote Er) 1,000 mg PO QHS [facility] Last Admin: 06/19/20 21:01 Dose: 1,000 mg Documented by: Fluticasone Propionate (Flonase) 1 spray NS QDAY [facility] Last Admin: 06/19/20 09:07 Dose: Not Given Documented by: Fondaparinux (Arixtra) 2.5 mg SQ DAILY [facility] Glucose (Insta-Glucose) 15 gm PO PRN PRN PRN Reason: Hypoglycemia Hydromorphone HCl (Dilaudid) 1 mg IV Q4HP PRN; Protocol PRN Reason: Per Pain Protocol Sodium Chloride (Sodium Chloride 0.9%) 250 mls @ 0 mls/hr IV DUR JARROD; Protocol Norepinephrine Bitartrate 16 (mg/ Sodium Chloride) 250 mls @ 9.375 mls/hr IV Q24HP PRN; Protocol PRN Reason: Hypotension Levofloxacin (Levaquin) 750 mg in 150 mls @ 100 mls/hr IV Q24H [facility] Last Infusion: 06/19/20 21:04 Dose: Infused Documented by: Insulin Human Lispro (Humalog) 0 unit SQ ACHS [facility]; Protocol Last Admin: 06/19/20 21:03 Dose: Not Given Documented by: Lactulose (Cephulac) 10 gm PO DAILYP PRN PRN Reason: Constipation Levothyroxine Sodium (Synthroid) 75 mcg PO [facility] Last Admin: 06/20/20 07:47 Dose: 75 mcg Documented by: Loperamide HCl (Imodium) 2 mg PO PRN PRN PRN Reason: Diarrhea Last Admin: 06/19/20 21:03 Dose: 2 mg Documented by: Metoprolol Tartrate (Lopressor) 25 mg PO BID [facility] Last Admin: 06/19/20 21:02 Dose: 25 mg Documented by: Naloxone HCl (Narcan) 0.1 mg IV Q2MIN PRN PRN Reason: Opiate Reversal Nicotine (Nicoderm) 21 mg TOPICAL DAILY@1000 [facility] Ondansetron HCl (Zofran) 4 mg IV Q4HP PRN; Protocol PRN Reason: Nausea And Vomiting Pantoprazole Sodium (Protonix) 40 mg PO [facility] Last Admin: 06/20/20 07:46 Dose: 40 mg Documented by: Sertraline HCl (Zoloft) 100 mg PO DAILY [facility] Last Admin: 06/19/20 09:06 Dose: 100 mg Documented by: Simvastatin (Zocor) 20 mg PO HS [facility] Last Admin: 06/19/20 21:02 Dose: 20 mg Documented by: Sodium Chloride (Saline Flush) 10 ml IV Q12 [facility] Last Admin: 06/19/20 21:03 Dose: 10 ml Documented by: Sodium Chloride (Saline Flush) 10 ml IV Q8 [facility] Last Admin: 06/20/20 05:37 Dose: 10 ml Documented by: Sodium Chloride (Saline Flush) 10 ml IV UD PRN PRN Reason: FLUSH Tamsulosin HCl (Flomax) 0.4 mg PO QDAY [facility] Last Admin: 06/19/20 09:07 Dose: Not Given Documented by: Tramadol HCl (Ultram) 50 mg PO Q6HP PRN; Protocol PRN Reason: Pain Last Admin: 06/19/20 21:02 Dose: 50 mg Documented by: ABG Interpretation ABG results: 06/16/20 12:30 ABG Methemoglobin 0.3 L VBG pH 7.48 H VBG pCO2 31.9 L VBG pO2 61 H VBG HCO3 23.0 L VBG Total CO2 24.0 L VBG O2 Saturation 86.5 H VBG Base Excess 0.2 A/P Narrative A/P Narrative: A: *Septic Shock: 2/2 PNA, resolved *Postobstructive pneumonia: 2/2 likely lung CA -Sputum culture pending, COVID-19 negative, MRSA screen neg -leukocytosis resolved -BC/SC neg *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 A large postobstructive alveolar infiltrate throughout most of the right upper lobe .... 5 cm osteolytic lesion destroying the right T5 vertebral body ..." -weight loss of about 30lbs since last year *Acute hypoxic Resp Failure: poor reserve, can be on room air but then desats with movement -currently on 2-5L N NC *Likely Aspiration and has Mod Oropharyngeal Dysphagia: -diet modified by ST -cxr left side improved but new right side, nurse noted cough with food/drink, seen by Speech *Tobacco dependence: *likely COPD based on imaging and h/o smoking *DM type 2: Hba1c 6.0 on 02/18/20 *Hypoglycemia: poor appetite and was on oral hypoglycemics. Patient does not want to eat anything -resolved *HTN: *Hx of alcohol abuse and chronic pancreatitis: has not been drinking over the past 5 years *Hyponatremia/hypokalemia/hypophosphatemia/hypomagnesemia: improved *GERD: *Depression/Bipolar: *Hypothyroidism: tsh *Thrombocytopenia: critical illness + malignancy vs HIT vs other -36<37<54<83<181<149 -smear no schistocytes or other revealing information P: -[place] [facility] guarded in light of likely new metastatic CA diagnosis -cont zosyn to Levaquin -wean o2 as able -IS/Acapella -electrolyte replacement -check HIT panel, d/c heparin; DIC panel still pending -cont home BB at reduced dose for low-normal BP, lasix held -Diabetic diet, Insulin sliding scale, hold glipizide/metformin -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
[2020-06-20] MEDS ORDERED: MAGNESIUM SULFATE 8.12 MEQ in DEXTROSE 5% IN WATER 50 ML IV ONE (09:00)
[2020-06-20] MEDS ORDERED: FONDAPARINUX SODIUM 2.5 MG/0.5 ML SYRINGE SQ SCH (09:00)
[2020-06-20] MEDS: INSULIN LISPRO 1 UNIT/0.01 ML UNIT SQ SCH ×3 (09:15→21:33)
[2020-06-20] MEDS: SERTRALINE 50 MG TABLET PO SCH (09:20)
[2020-06-20] MEDS: METOPROLOL TARTRATE 25 MG TABLET PO SCH ×2 (09:20→21:32)
[2020-06-20] MEDS: TAMSULOSIN 0.4 MG CAPSULE PO SCH (09:20)
[2020-06-20] MEDS: LEVOFLOXACIN 750 MG/150 ML BAG IV SCH (09:28)
[2020-06-20] MEDS ORDERED: NICOTINE 21 MG PATCH TOPICAL SCH ×2 (10:00→17:39)
[2020-06-20] MEDS ORDERED: NOREPINEPHRINE BITARTRATE 16 MG in 0.9 % SODIUM CHLORIDE 234 ML IV PRN ×2 (10:02→15:29)
[2020-06-20] MEDS ORDERED: LOPERAMIDE 2 MG CAPSULE PO PRN ×2 (10:02→15:29)
[2020-06-20] MEDS ORDERED: IPRATROPIUM/ALBUTEROL 3 ML AMPUL.NEB NEB PRN ×2 (10:02→15:29)
[2020-06-20] MEDS ORDERED: HYDROmorphone 1 MG/ML SYRINGE IV PRN ×2 (10:02→15:29)
[2020-06-20] MEDS ORDERED: IOPAMIDOL 100 ML BOTTLE IV ONE ×2 (10:02→15:29)
[2020-06-20] MEDS ORDERED: 0.9 % SODIUM CHLORIDE 10 ML SYRINGE IV PRN ×2 (10:02→15:29)
[2020-06-20] MEDS ORDERED: NALOXONE HCL 0.4 MG/ML VIAL IV PRN ×2 (10:02→15:29)
[2020-06-20] MEDS ORDERED: DEXTROSE 50% 50 ML VIAL IV PRN ×2 (10:02→15:29)
[2020-06-20] MEDS ORDERED: traMADol 50 MG TABLET PO PRN (10:02)
[2020-06-20] MEDS ORDERED: 0.9 % SODIUM CHLORIDE 250 ML IV SCH ×2 (10:02→15:29)
[2020-06-20] MEDS ORDERED: DEXTROSE 31 GM ORAL.SUSP PO PRN ×2 (10:02→15:29)
[2020-06-20] MEDS ORDERED: LACTULOSE 20 GM/30 ML ORAL.SOL PO PRN ×2 (10:02→15:29)
[2020-06-20] MEDS ORDERED: ONDANSETRON 4 MG/2 ML VIAL IV PRN ×2 (10:02→15:29)
[2020-06-20] MEDS: FLUTICASONE PROPIONATE SPRAY.NAS NS SCH (10:06)
[2020-06-20] MEDS ORDERED: INSULIN LISPRO 1 UNIT/0.01 ML UNIT SQ SCH (11:30)
[2020-06-20] MEDS ORDERED: 0.9 % SODIUM CHLORIDE 10 ML SYRINGE IV SCH ×2 (14:00→21:00)
--- NOTE | 2020-06-20 14:25 | XRay Report ---
CLINICAL INFORMATION: increased oxygen demand COMPARISON: None. FINDINGS: Large left upper lobe infiltrate shows slight increased density. Moderate-sized left lower lobe, right middle and right lower lobe infiltrates have also progressed. Heart size, mediastinum and pulmonary vessels are normal. Central line is stable satisfactory position. IMPRESSION: Worsening bilateral infiltrates. Interpreted and Authenticated by: Nando Gavin 06/20/20
[2020-06-20] MEDS ORDERED: DIVALPROEX SODIUM 250 MG TABLET PO SCH (21:00)
[2020-06-20] MEDS ORDERED: METOPROLOL TARTRATE 25 MG TABLET PO SCH (21:00)
[2020-06-20] MEDS ORDERED: SIMVASTATIN 20 MG TABLET PO SCH (21:00)
[2020-06-20] MEDS: DIVALPROEX SODIUM 250 MG TABLET PO SCH (21:32)
[2020-06-20] MEDS: traMADol 50 MG TABLET PO PRN (21:32)
[2020-06-20] MEDS: SIMVASTATIN 20 MG TABLET PO SCH (21:32)
[2020-06-21] MEDS: 0.9 % SODIUM CHLORIDE 10 ML SYRINGE IV SCH ×5 (05:19→21:36)
[2020-06-21 06:36] LABS: Basophils # (Auto) 0.02 K/mcL (0.00-0.30); Basophils % (Auto) 0.1 % (0.0-2.0); Eosinophils # (Auto) 0.03 K/mcL (0.00-0.70); Eosinophils % (Auto) 0.2 % (0.0-7.0); Granulocytes % (Auto) 87.3 % (38.0-78.0); Hematocrit 34.9 % (40.1-51.0); Hemoglobin 11.8 g/dL (13.7-17.5); Lymphocytes # (Auto) 0.97 K/mcL (1.50-4.80); Lymphocytes % (Auto) 7.3 % (15.5-49.0); Mean Cell Volume 86.6 fL (80.0-100.0); Mean Corpuscular HGB Conc 33.8 g/dL (31.0-36.0); Mean Platelet Volume 11.1 fL (7.4-10.4); Monocytes # (Auto) 0.68 K/mcL (0.10-0.90); Monocytes % (Auto) 5.1 % (1.0-12.0); Platelet Count 67 K/mcL (140-440); RBC 4.03 M/mcL (4.63-6.08); Red Cell Distribution Width 14.7 % (11.5-14.5); WBC 13.4 K/mcL (4.50-11.00)
[2020-06-21] MEDS: PANTOPRAZOLE 40 MG TABLET PO SCH (07:13)
[2020-06-21] MEDS: LEVOTHYROXINE 75 MCG TABLET PO SCH (07:14)
[2020-06-21] MEDS: INSULIN LISPRO 1 UNIT/0.01 ML UNIT SQ SCH ×4 (07:28→21:35)
[2020-06-21] MEDS ORDERED: PANTOPRAZOLE 40 MG TABLET PO SCH (07:30)
[2020-06-21] MEDS ORDERED: LEVOTHYROXINE 75 MCG TABLET PO SCH (07:30)
--- NOTE | 2020-06-21 07:34 | Internal Med Progress Note ---
SUBJECTIVE Subjective Patient information: Note initiated : 06/21/20 at 7:28 am Service Date, if different from initiated Date: [] Patient: Ozzy Greenberg a 64 y/o M admitted on 06/15/20 for weakness. Chief Complaint: [] Interval history: History of present illness: Mr. Greenberg is a 64 year old M with a past medical history of current smoker, diabetes type 2, high blood pressure, and a history of alcohol abuse who presented to the ER due to weakness. As per patient, he fell multiple times during this weekend and today. He did not lose consciousness and he did not have head injury. Recently he has been feeling tired and have been having nausea, shortness of breath and poor appetite. He has lost significant body weight over the recent years. In the ER, chest CT showed metastatic neoplastic disease. Radiologist at Dr. Pabon will possibly do a biopsy for him tomorrow. When I saw this patient in the ER, other than symptoms mentioned above, he denied headache, chest pain, abdominal pain, hemoptysis, or change in vision. 06/16 Pt looks weak and tired. But no new complaits. He has hypotension has been low since admission. Phenylepirine was initially started but MAP could not be maintained 65. Levophed was added. His fluid status seems to be overloaded. Lasix 20mg x 2 was given. D5NS was changed to D10NA. Good urine output WBC 29.3 with bandemia, 22. K, mag and phos low. Replaced. Met and updated to daughter this morning. A family conference on tomorrow has been setup. 06/17 Doing much better today. Slept well. Off both vasopressors as of earlier this morning. Urine output adequate on average. He is on room air at this point. Vital signs stable. White blood cell count improved. He has a productive cough and some shortness of breath above baseline. Loose stool this morning. DC docusate 06/18 White blood cell count continues to improve. Procalcitonin improving. However the oxygenation fluctuates currently on 5 this morning. Potassium and phos low. Platelets have dropped from the mid 100s for the first several days to 83 yesterday 54 today. Will obtain HIT panel and changed heparin to Arixtra. Chest x-ray with improvement on the left infiltrate but new on the right. Concern for swallowing, nurse does report some coughing food and drink. Speech therapy to reevaluate today. Patient has productive cough. Shortness of breath waxes and wanes. He has chronic neck and shoulder pain but denies any back pain. Did discuss code status with him and he requested DNR. 06/19 No issues overnight. No new complaints. Platelets decreased again today. Leukocytosis resolved. Back down to 2 L of nasal cannula oxygen. Platelets similar to yesterday. 06/20 No real issues overnight. He does desat more when he sleeping and was up to 5 L while sleeping. Down to 2 with good sats while awake. Has productive cough and shortness of breath, otherwise no new complaints. Pending HIT panel. 06/21 Breathing seems to be very tenuous. Seems as though some improvement and then will worsen again. increased oxygen mask flow, by put on bipap. Platelets have improved. Review of Systems: denies headache/fever/chills/nausea/vomiting/chest or abdominal pain/. Otherwise see above. Constitutional Vitals: Vital Signs Temp Pulse Resp BP Pulse Ox 98.2 F 95 H 16 113/79 91 06/21/20 04:01 06/21/20 06:00 06/21/20 06:00 06/21/20 07:00 06/21/20 07:00 Period Temp Pulse Resp BP Sys/Gale Pulse Ox Last 24 Hr 97.5 F-98.7 F 78-108 16-38 96-134/69-90 85-99 Intake and Output 06/20/20 06/21/20 06/21/20 21:59 05:59 13:59 Output Total 250 280 Balance -250 -280 Weight 55.202 kg Intake & Output: Intake & Output 06/20/20 06/21/20 06/21/20 21:59 05:59 13:59 Output Total 250 280 Balance -250 -280 Weight 55.202 kg Output: Urine Catheter Amount 250 280 Other: Urine Appearance Clear Clear Uretheral (Duncan) Clear Urine Color Tea Colored Dark Minnie Uretheral (Duncan) Tea Colored Urine Odor Normal Stool Size Moderate Stool Color Brown Stool Consistency Liquid # of times incontinent of 2 Bowels Exam: General: Awake, No acute Distress, cachectic in appearance Eyes/N/T: EOMI, Head/Neck: neck supple, CV: RRR, No murmurs, Pulm: worse, b/l rhonchi, no wheezing Abd: soft, nontender, +BS x4 Ext: no clubbing/cyanosis/edema Neuro: Alert, no focal deficits, moves all extremities, Skin: warm/dry OBJ DATA Labs CBC & Chem 7: 06/21/20 04:58 06/20/20 05:00 Labs: Abnormal Lab Results 06/21/20 06/20/20 06/20/20 04:58 05:00 05:00 WBC 13.4 H RBC 4.03 L 3.61 L Hgb 11.8 L 10.6 L Hct 34.9 L 30.8 L RDW 14.7 H 14.6 H Plt Count 67 L 36 L* MPV 11.1 H 10.8 H Gran % 87.3 H Lymph % (Auto) 7.3 L Gran # 11.65 H Lymph # (Auto) 0.97 L Seg Neutrophils % 79 H Lymphocytes % 4 L WBC Morphology Abnorm A Toxic Granulation Few A Platelet Estimate Mk decr A RBC Morphology Abnorm A Microcytosis Few A Ovalocytes Few A Haptoglobin Potassium Creatinine 0.3 L Glucose Uric Acid Phosphorus 2.6 L Total Protein 4.3 L Albumin 1.8 L Albumin/Globulin Ratio 0.7 L Cortisol AM Sample 06/19/20 06/19/20 06/19/20 08:37 05:15 05:15 WBC RBC 3.61 L Hgb 10.7 L Hct 30.6 L RDW 14.9 H Plt Count 37 L* MPV Gran % 87.4 H Lymph % (Auto) 6.7 L Gran # Lymph # (Auto) 0.57 L Seg Neutrophils % Lymphocytes % WBC Morphology Toxic Granulation Platelet Estimate RBC Morphology Microcytosis Ovalocytes Haptoglobin 258 H Potassium 3.1 L Creatinine 0.3 L Glucose 125 H Uric Acid 2.3 L Phosphorus 2.3 L Total Protein 4.3 L Albumin 1.7 L Albumin/Globulin Ratio 0.7 L Cortisol AM Sample 06/18/20 06/18/20 06/18/20 16:17 07:31 04:57 WBC 13.9 H RBC 4.11 L Hgb 12.1 L Hct 34.8 L RDW 15.1 H Plt Count 54 L MPV Gran % 90.3 H Lymph % (Auto) 4.7 L Gran # 12.57 H Lymph # (Auto) 0.66 L Seg Neutrophils % Lymphocytes % WBC Morphology Toxic Granulation Platelet Estimate RBC Morphology Microcytosis Ovalocytes Haptoglobin Potassium 3.1 L Creatinine Glucose Uric Acid Phosphorus Total Protein Albumin Albumin/Globulin Ratio Cortisol AM Sample 32.1 H Meds: Medications Albuterol/Ipratropium (Duoneb) 3 ml NEB Q6HRT PRN PRN Reason: Shortness Of Breath Dextrose (Dextrose 50%) 0 ml IV UD PRN PRN Reason: Hypoglycemia Diagnostic Test (Pha) (Accu-Chek) 1 each FS ACHS [facility] Last Admin: 06/20/20 21:31 Dose: 1 each Documented by: Divalproex Sodium (Depakote Er) 1,000 mg PO QHS [facility] Last Admin: 06/20/20 21:32 Dose: 1,000 mg Documented by: Fluticasone Propionate (Flonase) 1 spray NS QDAY [facility] Fondaparinux (Arixtra) 2.5 mg SQ DAILY [facility] Glucose (Insta-Glucose) 15 gm PO PRN PRN PRN Reason: Hypoglycemia Hydromorphone HCl (Dilaudid) 1 mg IV Q4HP PRN; Protocol PRN Reason: Per Pain Protocol Levofloxacin (Levaquin) 750 mg in 150 mls @ 100 mls/hr IV DAILY [facility] Sodium Chloride (Sodium Chloride 0.9%) 250 mls @ 0 mls/hr IV DUR JARROD; Protocol Norepinephrine Bitartrate 16 (mg/ Sodium Chloride) 250 mls @ 9.375 mls/hr IV Q24HP PRN; Protocol PRN Reason: Hypotension Insulin Human Lispro (Humalog) 0 unit SQ ACHS [facility]; Protocol Last Admin: 06/20/20 21:33 Dose: Not Given Documented by: Lactulose (Cephulac) 10 gm PO DAILYP PRN PRN Reason: Constipation Levothyroxine Sodium (Synthroid) 75 mcg PO QAMAC [facility] Last Admin: 06/21/20 07:14 Dose: 75 mcg Documented by: Loperamide HCl (Imodium) 2 mg PO PRN PRN PRN Reason: Diarrhea Metoprolol Tartrate (Lopressor) 25 mg PO BID [facility] Last Admin: 06/20/20 21:32 Dose: 25 mg Documented by: Naloxone HCl (Narcan) 0.1 mg IV Q2MIN PRN PRN Reason: Opiate Reversal Nicotine (Nicoderm) 21 mg TOPICAL DAILY@1000 [facility] Ondansetron HCl (Zofran) 4 mg IV Q4HP PRN; Protocol PRN Reason: Nausea And Vomiting Pantoprazole Sodium (Protonix) 40 mg PO QAMAC [facility] Last Admin: 06/21/20 07:13 Dose: 40 mg Documented by: Sertraline HCl (Zoloft) 100 mg PO DAILY [facility] Simvastatin (Zocor) 20 mg PO HS [facility] Last Admin: 06/20/20 21:32 Dose: 20 mg Documented by: Sodium Chloride (Saline Flush) 10 ml IV Q12 [facility] Last Admin: 06/20/20 21:32 Dose: 10 ml Documented by: Sodium Chloride (Saline Flush) 10 ml IV Q8 [facility] Last Admin: 06/21/20 05:19 Dose: 10 ml Documented by: Sodium Chloride (Saline Flush) 10 ml IV UD PRN PRN Reason: FLUSH Tamsulosin HCl (Flomax) 0.4 mg PO QDAY [facility] Tramadol HCl (Ultram) 50 mg PO Q6HP PRN; Protocol PRN Reason: Pain Last Admin: 06/20/20 21:32 Dose: 50 mg Documented by: ABG Interpretation ABG results: 06/16/20 12:30 ABG Methemoglobin 0.3 L VBG pH 7.48 H VBG pCO2 31.9 L VBG pO2 61 H VBG HCO3 23.0 L VBG Total CO2 24.0 L VBG O2 Saturation 86.5 H VBG Base Excess 0.2 A/P Narrative A/P Narrative: A: *Septic Shock: 2/2 PNA, resolved *Postobstructive pneumonia: 2/2 likely lung CA -Sputum culture pending, COVID-19 negative, MRSA screen neg -leukocytosis resolved -BC/SC neg *Likely primary Lung CA & mets to spine (T5): likely poor prognosis if primary lung to spine mets -active Smoker -CT chest - "Suspect 4 cm left hilar mass encasing and narrowing the anterior segment left upper lobe bronchus and pulmonary artery. A large postobstructive alveolar infiltrate throughout most of the right upper lobe .... 5 cm osteolytic lesion destroying the right T5 vertebral body ..." -weight loss of about 30lbs since last year *Acute hypoxic Resp Failure: Fragile with poor reserve -need for o2 waxes/wanes, cxr no change -currently on *Likely Aspiration and has Mod Oropharyngeal Dysphagia: -diet modified by ST -cxr left side improved but new right side, nurse noted cough with food/drink, seen by Speech *Tobacco dependence: *likely COPD based on imaging and h/o smoking *DM type 2: Hba1c 6.0 on 02/18/20 *Hypoglycemia: poor appetite and was on oral hypoglycemics. Patient does not want to eat anything -resolved *HTN: *Hx of alcohol abuse and chronic pancreatitis: has not been drinking over the past 5 years *Hyponatremia/hypokalemia/hypophosphatemia/hypomagnesemia: improved *GERD: *Depression/Bipolar: *Hypothyroidism: tsh wnl *Thrombocytopenia: critical illness/Sepsis + malignancy vs HIT vs other -67<36<37<54<83<181<149 -smear no schistocytes or other revealing information P: -[facility] guarded in light of likely new metastatic CA diagnosis -zosyn to Rocephin -wean o2 as able -IS/Acapella -electrolyte replacement -check HIT panel, d/c'd heparin -cont home BB at reduced dose for low-normal BP, lasix held -Diabetic diet, Insulin sliding scale, hold glipizide/metformin -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
[2020-06-21] MEDS ORDERED: FUROSEMIDE 40 MG/4 ML VIAL IV ONE (08:53)
[2020-06-21] MEDS ORDERED: ALBUMIN HUMAN 12.5 GM/50 ML BAG IV ONE (08:53)
[2020-06-21] MEDS ORDERED: FLUTICASONE PROPIONATE SPRAY.NAS NS SCH (09:00)
[2020-06-21] MEDS ORDERED: LEVOFLOXACIN 750 MG/150 ML BAG IV SCH ×2 (09:00)
[2020-06-21] MEDS ORDERED: cefTRIAXone 2 GM in DEXTROSE 5% IN WATER 50 ML IV SCH (09:00)
[2020-06-21] MEDS ORDERED: TAMSULOSIN 0.4 MG CAPSULE PO SCH (09:00)
[2020-06-21] MEDS ORDERED: FONDAPARINUX SODIUM 2.5 MG/0.5 ML SYRINGE SQ SCH ×2 (09:00)
[2020-06-21] MEDS ORDERED: SERTRALINE 50 MG TABLET PO SCH (09:00)
[2020-06-21] MEDS: FLUTICASONE PROPIONATE SPRAY.NAS NS SCH (09:44)
[2020-06-21 09:52] LABS: Band Neutrophils % 5 % (0-10); Eosinophils % (Manual) 1 % (0-7); Lymphocytes % 10 % (15-49); Monocytes % (Manual) 5 % (1-12); Platelet Estimate DECREASED (NORMAL); RBC Morphology NORMAL (NORMAL); Segmented Neutrophils % 79 % (38-78)
[2020-06-21] MEDS ORDERED: NICOTINE 21 MG PATCH TOPICAL SCH (10:00)
[2020-06-21] MEDS: SERTRALINE 50 MG TABLET PO SCH (11:13)
[2020-06-21] MEDS: TAMSULOSIN 0.4 MG CAPSULE PO SCH (11:13)
[2020-06-21] MEDS: NICOTINE 21 MG PATCH TOPICAL SCH (11:13)
[2020-06-21] MEDS: METOPROLOL TARTRATE 25 MG TABLET PO SCH ×2 (11:13→21:34)
--- NOTE | 2020-06-21 14:10 | Cat Scan Report ---
CLINICAL INFORMATION: 5 cm osteolytic lesion destroying the right T5 vertebral body, pedicle, lamina and adjacent facets. Suspect metastases for a possible lung carcinoma. COMPARISON: Chest CT 06/15/2020 Technique: The procedure and risks including possibility of bleeding, infection, pneumothorax and neurologic damage were explained to the patient. Conscious sedation was not provided: He was an inpatient and apparently was adequately sedated on the floor. He was semiconscious during the the procedure. With the patient in prone position, the lytic lesion of the right T5 vertebral body was CT localized. The skin overlying the lesion was marked, prepped and locally anesthetized with 1% lidocaine using a 25-gauge needle. A 17-gauge Temno guide needle was placed into the posterior aspect of the lesion. Through this guide a 18-gauge core biopsy needle was used to obtain four core passes with were sent in formalin to pathology. The needle was washed in normal sterile saline between each pass. The needle was removed. Post procedure scanning shows no hemorrhage or other complication. IMPRESSION: CT-guided core biopsy of 5 cm osteolytic lesion destroying the right T5 vertebral body posterior elements. Suspect lung carcinoma metastases. No apparent complication. Pathology pending Interpreted and Authenticated by: Nando Gavin 06/21/20
[2020-06-21] MEDS: traMADol 50 MG TABLET PO PRN ×2 (15:42→21:34)
[2020-06-21] MEDS: LORazepam 2 MG/ML VIAL IV PRN (19:55)
[2020-06-21] MEDS ORDERED: LORazepam 2 MG/ML VIAL ONE (19:58)
[2020-06-21] MEDS: DIVALPROEX SODIUM 250 MG TABLET PO SCH (21:34)
[2020-06-21] MEDS: SIMVASTATIN 20 MG TABLET PO SCH (21:34)
[2020-06-22] MEDS: LORazepam 2 MG/ML VIAL IV PRN ×2 (01:21→11:08)
[2020-06-22] MEDS ORDERED: 0.9 % SODIUM CHLORIDE 200 ML IV ONE (03:03)
[2020-06-22] MEDS ORDERED: 0.9 % SODIUM CHLORIDE 1,000 ML IV SCH (03:15)
[2020-06-22] MEDS: DIVALPROEX SODIUM 250 MG TABLET PO SCH (03:28)
[2020-06-22] MEDS: METOPROLOL TARTRATE 25 MG TABLET PO SCH ×2 (03:28→10:18)
[2020-06-22] MEDS: SIMVASTATIN 20 MG TABLET PO SCH (03:28)
--- NOTE | 2020-06-22 03:32 | XRay Report ---
CLINICAL INFORMATION: increasing oxygen demand COMPARISON: 06/20/2020 FINDINGS: There are now diffuse infiltrates throughout both lungs with increased density in the left upper lobe . A known left hilar mass is obscured by infiltrate. Cardiomediastinal silhouette and pulmonary vessels are normal. No effusions. IMPRESSION: Diffuse infiltrates progressing Interpreted and Authenticated by: Nando Gavin 06/22/20
[2020-06-22 04:03] LABS: Basophils # (Auto) 0.04 K/mcL (0.00-0.30); Basophils % (Auto) 0.2 % (0.0-2.0); Eosinophils # (Auto) 0.08 K/mcL (0.00-0.70); Eosinophils % (Auto) 0.4 % (0.0-7.0); Granulocytes % (Auto) 88.3 % (38.0-78.0); Hematocrit 37.2 % (40.1-51.0); Hemoglobin 12.8 g/dL (13.7-17.5); Lymphocytes # (Auto) 1.34 K/mcL (1.50-4.80); Lymphocytes % (Auto) 6.7 % (15.5-49.0); Mean Cell Volume 86.3 fL (80.0-100.0); Mean Corpuscular HGB Conc 34.4 g/dL (31.0-36.0); Mean Platelet Volume 10.7 fL (7.4-10.4); Monocytes # (Auto) 0.87 K/mcL (0.10-0.90); Monocytes % (Auto) 4.4 % (1.0-12.0); Platelet Count 121 K/mcL (140-440); RBC 4.31 M/mcL (4.63-6.08); Red Cell Distribution Width 14.8 % (11.5-14.5); WBC 19.9 K/mcL (4.50-11.00)
[2020-06-22 04:13] LABS: ALT/SGPT 11 U/l (0-40); AST/SGOT 9 U/l (0-37); Alkaline Phosphatase 82 U/L (39-117); Bilirubin,Total 0.4 mg/dL (0.0-1.0); Calcium 9.7 mg/dl (8.6-10.4); Carbon Dioxide 29 mmol/L (22-30); Chloride 99 mmol/L (96-108); Glucose 175 mg/dL (70-105)
[2020-06-22 04:21] LABS: Albumin 1.9 gm/dL (3.2-5.2); Albumin/Globulin Ratio 0.7 (1.0-2.3); Blood Urea Nitrogen 28 mg/dl (8-23); Globulin 2.8 gm/dL (2.2-3.7); Glomerular Filtration Rate 116
[2020-06-22] MEDS: 0.9 % SODIUM CHLORIDE 10 ML SYRINGE IV SCH ×5 (05:32→21:34)
[2020-06-22] MEDS: INSULIN LISPRO 1 UNIT/0.01 ML UNIT SQ SCH ×2 (07:45→12:21)
[2020-06-22] MEDS: LEVOTHYROXINE 75 MCG TABLET PO SCH (07:45)
[2020-06-22] MEDS: PANTOPRAZOLE 40 MG TABLET PO SCH (07:46)
[2020-06-22] MEDS: PIPERACILLIN SODIUM/TAZOBACTAM 3.375 GM in DEXTROSE 5% IN WATER 50 ML IV SCH ×2 (08:30→16:05)
[2020-06-22] MEDS ORDERED: FONDAPARINUX SODIUM 2.5 MG/0.5 ML SYRINGE SQ SCH (09:00)
[2020-06-22] MEDS: NICOTINE 21 MG PATCH TOPICAL SCH ×2 (10:17→12:21)
[2020-06-22] MEDS: TAMSULOSIN 0.4 MG CAPSULE PO SCH (10:17)
[2020-06-22] MEDS: FLUTICASONE PROPIONATE SPRAY.NAS NS SCH (10:18)
[2020-06-22] MEDS: SERTRALINE 50 MG TABLET PO SCH (10:19)
[2020-06-22] MEDS ORDERED: LORazepam 2 MG/ML VIAL IV PRN ×3 (13:27→17:05)
[2020-06-22] MEDS ORDERED: ONDANSETRON 4 MG/2 ML VIAL IV PRN ×2 (16:57→17:05)
[2020-06-22] MEDS ORDERED: morphine 2 MG/ML VIAL IV PRN (16:57)
[2020-06-22] MEDS ORDERED: SCOPOLAMINE 1 PATCH PATCH TOPICAL SCH (17:00)
[2020-06-22] MEDS ORDERED: 0.9 % SODIUM CHLORIDE 10 ML SYRINGE IV PRN (17:05)
[2020-06-22] MEDS: morphine 2 MG/ML VIAL IV PRN ×2 (17:12→21:13)
[2020-06-22] MEDS ORDERED: morphine 2 MG/ML VIAL ONE (17:16)
--- NOTE | 2020-06-22 18:34 | Internal Med Progress Note ---
SUBJECTIVE Subjective Patient information: Note initiated : 06/22/20 at 6:34 pm Service Date, if different from initiated Date: [] Patient: Ozzy Greenberg a 64 y/o M admitted on 06/15/20 for weakness. Chief Complaint: [] Interval history: History of present illness: Mr. Greenberg is a 64 year old M with a past medical history of current smoker, diabetes type 2, high blood pressure, and a history of alcohol abuse who presented to the ER due to weakness. As per patient, he fell multiple times during this weekend and today. He did not lose consciousness and he did not have head injury. Recently he has been feeling tired and have been having nausea, shortness of breath and poor appetite. He has lost significant body weight over the recent years. In the ER, chest CT showed metastatic neoplastic disease. Radiologist at Dr. Pabon will possibly do a biopsy for him tomorrow. When I saw this patient in the ER, other than symptoms mentioned above, he denied headache, chest pain, abdominal pain, hemoptysis, or change in vision. 06/16 Pt looks weak and tired. But no new complaits. He has hypotension has been low since admission. Phenylepirine was initially started but MAP could not be maintained 65. Levophed was added. His fluid status seems to be overloaded. Lasix 20mg x 2 was given. D5NS was changed to D10NA. Good urine output WBC 29.3 with bandemia, 22. K, mag and phos low. Replaced. Met and updated to daughter this morning. A family conference on tomorrow has been setup. 06/17 Doing much better today. Slept well. Off both vasopressors as of earlier this morning. Urine output adequate on average. He is on room air at this point. Vital signs stable. White blood cell count improved. He has a productive cough and some shortness of breath above baseline. Loose stool this morning. DC docusate 06/18 White blood cell count continues to improve. Procalcitonin improving. However the oxygenation fluctuates currently on 5 this morning. Potassium and phos low. Platelets have dropped from the mid 100s for the first several days to 83 yesterday 54 today. Will obtain HIT panel and changed heparin to Arixtra. Chest x-ray with improvement on the left infiltrate but new on the right. Concern for swallowing, nurse does report some coughing food and drink. Speech therapy to reevaluate today. Patient has productive cough. Shortness of breath waxes and wanes. He has chronic neck and shoulder pain but denies any back pain. Did discuss code status with him and he requested DNR. 06/19 No issues overnight. No new complaints. Platelets decreased again today. L eukocytosis resolved. Back down to 2 L of nasal cannula oxygen. Platelets similar to yesterday. 06/20 No real issues overnight. He does desat more when he sleeping and was up to 5 L while sleeping. Down to 2 with good sats while awake. Has productive cough and shortness of breath, otherwise no new complaints. Pending HIT panel. 06/21 Breathing seems to be very tenuous. Seems as though some improvement and then will worsen again. increased oxygen mask flow, by put on bipap. Platelets have improved. 06/22 Patient more sleepy and lethargic. Nonverbal. Patient blood pressure went down. Levophed as needed. Oxygen desaturation. BiPAP as needed Chest x-ray showed worsening pneumonia. I feel patient's pneumonia does not respond to current antibiotics. At this point, I would like to transfer this patient to [facility]. Patient needs taste tester for bronchoscopy which may help he is postobstructive pneumonia. Will discuss the plan with the family. Review of Systems: Unable to complete due to nonverbal status. Constitutional Vitals: Vital Signs Temp Pulse Resp BP Pulse Ox 98.8 F 125 H 34 H 118/82 98 06/22/20 16:00 06/22/20 08:37 06/22/20 16:00 06/22/20 17:00 06/22/20 17:00 Period Temp Pulse Resp BP Sys/Gale Pulse Ox Last 24 Hr 97.7 F-98.8 F 105-125 16-45 87-128/64-94 84-100 Intake and Output 06/22/20 06/22/20 06/22/20 05:59 13:59 21:59 Intake Total 965 247 1557 Output Total 220 47 Balance -20 100 953 Intake & Output: Intake & Output 06/22/20 06/22/20 06/22/20 05:59 13:59 21:59 Intake Total 128 984 1693 Output Total 220 47 Balance -20 100 953 Intake: IV 590 773 1373 Sodium Chloride 0.9% 1,000 ml @ 1000 70 mls/hr IV .[id number] [facility] Rx#: [id number] Sodium Chloride 0.9% 200 ml @ 200 Wide Open IV BOLUS ONE Rx#: [id number] Zosyn 3.375 gm In Dextrose 5% 50 in Water 50 ml @ 100 mls/hr IV Q8H [facility] Rx#:[id number] Rocephin 2 gm In Dextrose 5% in 50 Water 50 ml @ 100 mls/hr IV Q24H [facility] Rx#:[id number] Output: Urine Catheter Amount 220 47 Other: Urine Appearance Clear Clear Urine Color Dark Minnie Dark Yellow Urine Odor Normal Stool Size Small Smear Smear Stool Color Brown Brown Brown Stool Consistency Soft Soft Soft Additional findings Additional findings: General: Sleepy and lethargic, does not answer questions, no acute Distress, cachectic in appearance Eyes/N/T: EOMI, Head/Neck: neck supple, CV: RRR, No murmurs, Pulm: worse, b/l rhonchi, no wheezing Abd: soft, nontender, +BS x4 Ext: no clubbing/cyanosis/edema Neuro: no focal deficits, moves all extremities, Skin: warm/dry OBJ DATA Labs CBC & Chem 7: 06/22/20 03:12 06/22/20 03:11 Labs: Abnormal Lab Results 06/22/20 06/22/20 06/22/20 03:12 03:12 03:11 WBC 19.9 H RBC 4.31 L Hgb 12.8 L Hct 37.2 L RDW 14.8 H Plt Count 121 L MPV 10.7 H Gran % 88.3 H Lymph % (Auto) 6.7 L Gran # 17.60 H Lymph # (Auto) 1.34 L Seg Neutrophils % Lymphocytes % WBC Morphology Toxic Granulation Platelet Estimate RBC Morphology Microcytosis Ovalocytes BUN 28 H Creatinine 0.5 L Glucose 175 H Phosphorus NT-Pro-B Natriuret Pep 1108.0 H Total Protein 4.7 L Albumin 1.9 L Albumin/Globulin Ratio 0.7 L 06/21/20 06/21/20 06/20/20 04:58 04:58 05:00 WBC 13.4 H RBC 4.03 L Hgb 11.8 L Hct 34.9 L RDW 14.7 H Plt Count 67 L MPV 11.1 H Gran % 87.3 H Lymph % (Auto) 7.3 L Gran # 11.65 H Lymph # (Auto) 0.97 L Seg Neutrophils % 79 H Lymphocytes % 10 L WBC Morphology Toxic Granulation Platelet Estimate Decreased A RBC Morphology Microcytosis Ovalocytes BUN Creatinine 0.3 L Glucose Phosphorus 2.6 L NT-Pro-B Natriuret Pep Total Protein 4.3 L Albumin 1.8 L Albumin/Globulin Ratio 0.7 L 06/20/20 05:00 WBC RBC 3.61 L Hgb 10.6 L Hct 30.8 L RDW 14.6 H Plt Count 36 L* MPV 10.8 H Gran % Lymph % (Auto) Gran # Lymph # (Auto) Seg Neutrophils % 79 H Lymphocytes % 4 L WBC Morphology Abnorm A Toxic Granulation Few A Platelet Estimate Mk decr A RBC Morphology Abnorm A Microcytosis Few A Ovalocytes Few A BUN Creatinine Glucose Phosphorus NT-Pro-B Natriuret Pep Total Protein Albumin Albumin/Globulin Ratio Meds: Medications Lorazepam (Ativan) 0.5 mg IV Q2-4HP PRN PRN Reason: ANXIETY/SEDATION Last Admin: 06/22/20 18:12 Dose: 0.5 mg Documented by: Morphine Sulfate (Morphine) 2 mg IV Q2HP PRN; Protocol PRN Reason: Per Pain Protocol Last Admin: 06/22/20 17:12 Dose: 2 mg Documented by: Ondansetron HCl (Zofran) 4 mg IV Q4-6HP PRN PRN Reason: Nausea And Vomiting Scopolamine (Transderm-Scop) 1 patch TOPICAL Q72H JARROD Sodium Chloride (Saline Flush) 10 ml IV Q12 JARROD Last Admin: 06/22/20 18:12 Dose: 10 ml Documented by: Sodium Chloride (Saline Flush) 10 ml IV Q8 JARROD Sodium Chloride (Saline Flush) 10 ml IV UD PRN PRN Reason: FLUSH ABG Interpretation ABG results: 06/16/20 12:30 ABG Methemoglobin 0.3 L VBG pH 7.48 H VBG pCO2 31.9 L VBG pO2 61 H VBG HCO3 23.0 L VBG Total CO2 24.0 L VBG O2 Saturation 86.5 H VBG Base Excess 0.2 A/P Narrative A/P Narrative: 1. Septic Shock: 2/2 PNA 2. Postobstructive pneumonia: 2/2 likely lung CA -Sputum culture pending, -leukocytosis resolved -BC/SC neg -COVID-19 negative, MRSA screen neg -CXR showed worsening PNA. WBC went up. It does not seem to respond to current abx. I feel pt needs a taste tester at this point. Bronchoscopy may help his postobstructive pneumonia. I would like to transfer the pt if family agrees. 3. 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 A large postobstructive alveolar infiltrate throughout most of the right upper lobe .... 5 cm osteolytic lesion destroying the right T5 vertebral body ..." -weight loss of about 30lbs since last year 4. Acute hypoxic Resp Failure: Fragile with poor reserve -need for o2 waxes/wanes, cxr no change -currently on -BIPAP prn 5. Likely Aspiration and has Mod Oropharyngeal Dysphagia: -diet modified by ST -cxr left side improved but new right side, nurse noted cough with food/drink, seen by Speech 6. Hypotension Levaphed to maintain MAP 65 *Tobacco dependence: *likely COPD based on imaging and h/o smoking *DM type 2: Hba1c 6.0 on 02/18/20 *Hypoglycemia: poor appetite and was on oral hypoglycemics. Patient does not want to eat anything -resolved *HTN: *Hx of alcohol abuse and chronic pancreatitis: has not been drinking over the past 5 years *Hyponatremia/hypokalemia/hypophosphatemia/hypomagnesemia: improved *GERD: *Depression/Bipolar: *Hypothyroidism: tsh wnl *Thrombocytopenia: critical illness/Sepsis + malignancy vs HIT vs other -67<36<37<54<83<181<149 -smear no schistocytes or other revealing information P: -zosyn to Rocephin -wean o2 as able -IS/Acapella -electrolyte replacement -check HIT panel, d/c'd heparin -cont home BB at reduced dose for low-normal BP, lasix held -Diabetic diet, Insulin sliding scale, hold glipizide/metformin -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
--- NOTE | 2020-06-22 18:59 | Event Note ---
Event Note Event Note: Advanced Care Planning Documents: Parties in Attendance: primary RN, VERNELL and I met family including sisters (krys KAUFMAN), daughters, and mother in patient's room. Decisional Capacity: No POLST form completed: No. I updated and explained pt's condition and treatment options in details. We have not had a final diagnosis of lung cancer yet. He underwent biopsy yesterday. All family members feel that pt should be on comfort care at this moment. They would like to stop all meds which are not related to comfort care only. They also would like to keep oxygen for him and start the comfort care immediately.
[2020-06-22] MEDS ORDERED: 0.9 % SODIUM CHLORIDE 10 ML SYRINGE IV SCH (22:00)
--- NOTE | 2020-06-22 22:27 | Discharge Summary ---
Discharge Provider Provider Patient information: Note initiated : 06/22/20 at 10:21 pm Service Date, if different from initiated Date: [] Patient: Ozzy Greenberg 64 y/o M admitted on 06/15/20 for weakness. Chief Complaint: [] Date of admission: 06/15/20 16:11 Discharge date: 06/22/20 Primary care physician: Nando Pretty DO Consults: 06/15/20 14:25 Consult to Physician [CONS] Stat Comment: Consulting Provider: Pepper Brannon Reason For Exam: Physician to Consult 06/17/20 16:47 Consult to Physician [CONS] Routine Comment: Consulting Provider: [facility] Reason For Exam: Physician to Consult Discharge Meds Discharge Medications Home Medications pantoprazole 40 mg tablet,delayed release 40 mg PO QDAY #90 tab 07/24/19 [Rx Confirmed 06/15/20 Last Taken Unknown] fluticasone propionate 50 mcg/actuation nasal spray,suspension 1 spray INTRANASAL QDAY #18.2 ml 08/27/19 [Rx Confirmed 06/15/20 Last Taken Unknown] loratadine 10 mg tablet 10 mg PO QDAY #90 tab 08/27/19 [Rx Confirmed 06/15/20 Last Taken Unknown] glipizide 10 mg tablet 10 mg PO QDAY #90 tab 09/30/19 [Rx Confirmed 06/15/20 Last Taken Unknown] pravastatin 40 mg tablet 40 mg PO QHS #90 tab 09/30/19 [Rx Confirmed 06/15/20 Last Taken Unknown] dicyclomine 20 mg tablet 20 mg PO TID #90 tab 01/12/20 [Rx Confirmed 06/15/20 Last Taken Unknown] tamsulosin 0.4 mg capsule 0.4 mg PO QDAY #30 cap 03/03/20 [Rx Confirmed 06/15/20 Last Taken Unknown] lactobacillus combination no.8 3 billion cell capsule 3,000 mmu cells PO QDAY 04/06/20 [History Confirmed 06/16/20 Last Taken Unknown] vitamin B complex 1 tab PO QDAY 04/06/20 [History Confirmed 06/16/20 Last Taken Unknown] divalproex 500 mg tablet,delayed release 1,000 mg PO QHS #60 tab 05/12/20 [Rx Confirmed 06/15/20 Last Taken Unknown] acetaminophen-codeine 1 tab PO Q8HP PRN 06/15/20 [History Confirmed 06/15/20 Last Taken Unknown] furosemide 20 mg PO QAM 06/15/20 [History Confirmed 06/15/20 Last Taken Unknown] levothyroxine 75 mcg PO QAMAC 06/15/20 [History Confirmed 06/15/20 Last Taken Unknown] metformin 1,000 mg PO BIDCC 06/15/20 [History Confirmed 06/15/20 Last Taken Unknown] mirtazapine 15 mg PO QHS 06/15/20 [History Confirmed 06/15/20 Last Taken Unknown] sertraline 50 mg tablet See Rx Instructions .ROUTE .COMPLEX #21 tab 06/15/20 [Rx Confirmed 06/15/20 Last Taken Unknown] COURSE Hospital Course Hospital course: 1. Septic Shock: 2/2 PNA, resolved 2. Postobstructive pneumonia: 2/2 likely lung CA 3. Likely primary Lung CA & mets to spine (T5): 4. Acute hypoxic Resp Failure 5. Likely Aspiration and has Mod Oropharyngeal Dysphagia: 6. Tobacco dependence: 7. likely COPD based on imaging and h/o smoking 8. DM type 2: Hba1c 6.0 on 02/18/20 9. Hypoglycemia: poor appetite and was on oral hypoglycemics. 10. Hx of HTN 11. Hypotension 12. Hx of alcohol abuse and chronic pancreatitis 13. GERD 14. Depression/Bipolar 15. Hypothyroidism: tsh wnl 16. Thrombocytopenia Interval history: History of present illness: Mr. Greenberg is a 64 year old M with a past medical history of current smoker, diabetes type 2, high blood pressure, and a history of alcohol abuse who presented to the ER due to weakness. As per patient, he fell multiple times during this weekend and today. He did not lose consciousness and he did not have head injury. Recently he has been feeling tired and have been having nausea, shortness of breath and poor appetite. He has lost significant body weight over the recent years. In the ER, chest CT showed metastatic neoplastic disease. Radiologist at Dr. Pabon will possibly do a biopsy for him tomorrow. When I saw this patient in the ER, other than symptoms mentioned above, he denied headache, chest pain, abdominal pain, hemoptysis, or change in vision. 06/16 Pt looks weak and tired. But no new complaits. He has hypotension has been low since admission. Phenylepirine was initially started but MAP could not be maintained 65. Levophed was added. His fluid status seems to be overloaded. Lasix 20mg x 2 was given. D5NS was changed to D10NA. Good urine output WBC 29.3 with bandemia, 22. K, mag and phos low. Replaced. Met and updated to daughter this morning. A family conference on tomorrow has been setup. 06/17 Doing much better today. Slept well. Off both vasopressors as of earlier this morning. Urine output adequate on average. He is on room air at this point. Vital signs stable. White blood cell count improved. He has a productive cough and some shortness of breath above baseline. Loose stool this morning. DC docusate 06/18 White blood cell count continues to improve. Procalcitonin improving. However the oxygenation fluctuates currently on 5 this morning. Potassium and phos low. Platelets have dropped from the mid 100s for the first several days to 83 yesterday 54 today. Will obtain HIT panel and changed heparin to Arixtra. Chest x-ray with improvement on the left infiltrate but new on the right. Concern for swallowing, nurse does report some coughing food and drink. Speech therapy to reevaluate today. Patient has productive cough. Shortness of breath waxes and wanes. He has chronic neck and shoulder pain but denies any back pain. Did discuss code status with him and he requested DNR. 06/19 No issues overnight. No new complaints. Platelets decreased again today. Leukocytosis resolved. Back down to 2 L of nasal cannula oxygen. Platelets similar to yesterday. 06/20 No real issues overnight. He does desat more when he sleeping and was up to 5 L while sleeping. Down to 2 with good sats while awake. Has productive cough and shortness of breath, otherwise no new complaints. Pending HIT panel. 06/21 Breathing seems to be very tenuous. Seems as though some improvement and then will worsen again. increased oxygen mask flow, by put on bipap. Platelets have improved. 06/22 Patient more sleepy and lethargic. Nonverbal. Patient blood pressure went down. Levophed as needed. Oxygen desaturation. BiPAP as needed Chest x-ray showed worsening pneumonia. I feel patient's pneumonia does not respond to current antibiotics. At this point, I would like to transfer this patient to [facility] hospital. Patient needs window assembler for bronchoscopy which may help he is postobstructive pneumonia. Will discuss the plan with the family. Comfort care only was started in this afternoon. He in this evening. Discharge diagnosis: Possible metastatic lung cancer. Time Spent with Patient Time attestation: Total time spent providing and/or coordinating discharge services: EXAM Constitutional Vitals: Temp Pulse Resp BP Pulse Ox 98.8 F 125 H 34 H 118/82 98 06/22/20 16:00 06/22/20 08:37 06/22/20 16:00 06/22/20 17:00 06/22/20 17:00 Discharge Data Data Completed and Pending Labs on day of discharge: Labs from last 24 hours 06/22/20 06/22/20 06/22/20 03:12 03:12 03:12 WBC RBC Hgb Hct MCV MCH MCHC RDW Plt Count MPV Gran % Lymph % (Auto) Randolph % (Auto) Eos % (Auto) Baso % (Auto) Gran # Lymph # (Auto) Randolph # (Auto) Eos # (Auto) Baso # (Auto) Hep-Trisha Thrombocytopen VBG Lactic Acid 2.0 Sodium Potassium Chloride Carbon Dioxide Anion Gap BUN Creatinine GFR Calculation Glucose Calcium Total Bilirubin AST ALT Alkaline Phosphatase Troponin T < 0.01 NT-Pro-B Natriuret Pep 1108.0 H Total Protein Albumin Globulin Albumin/Globulin Ratio 06/22/20 06/22/20 06/18/20 03:12 03:11 09:55 WBC 19.9 H RBC 4.31 L Hgb 12.8 L Hct 37.2 L MCV 86.3 MCH 29.7 MCHC 34.4 RDW 14.8 H Plt Count 121 L MPV 10.7 H Gran % 88.3 H Lymph % (Auto) 6.7 L Randolph % (Auto) 4.4 Eos % (Auto) 0.4 Baso % (Auto) 0.2 Gran # 17.60 H Lymph # (Auto) 1.34 L Randolph # (Auto) 0.87 Eos # (Auto) 0.08 Baso # (Auto) 0.04 Hep-Trisha Thrombocytopen Negative VBG Lactic Acid Sodium 139 Potassium 3.9 Chloride 99 Carbon Dioxide 29 Anion Gap 11.0 BUN 28 H Creatinine 0.5 L GFR Calculation 116 Glucose 175 H Calcium 9.7 Total Bilirubin 0.4 AST 9 ALT 11 Alkaline Phosphatase 82 Troponin T NT-Pro-B Natriuret Pep Total Protein 4.7 L Albumin 1.9 L Globulin 2.8 Albumin/Globulin Ratio 0.7 L Discharge Plan Patient/Caregiver Discharge Instructions Prescriptions: No Action divalproex 500 mg tablet,delayed release (DR/EC) 1,000 mg PO QHS Qty: 60 RF: 3 pantoprazole 40 mg tablet,delayed release (DR/EC) 40 mg PO QDAY Qty: 90 RF: 3 pravastatin 40 mg tablet 40 mg PO QHS Qty: 90 RF: 3 glipizide 10 mg tablet 10 mg PO QDAY Qty: 90 RF: 3 dicyclomine 20 mg tablet 20 mg PO TID Qty: 90 RF: 5 tamsulosin 0.4 mg capsule 0.4 mg PO QDAY Qty: 30 RF: 3 sertraline 50 mg tablet See Rx Instructions .ROUTE .COMPLEX Qty: 21 RF: 3 loratadine 10 mg tablet 10 mg PO QDAY Qty: 90 RF: 3 fluticasone propionate [Flonase Allergy Relief] 50 mcg/actuation spray,suspension 1 spray INTRANASAL QDAY Qty: 18.2 RF: 5 vitamin B complex Tablet 1 tab PO QDAY RF: 0 Adult Probiotic 3 billion cell capsule 3,000 mmu cells PO QDAY RF: 0 acetaminophen-codeine 300-30 mg tablet 1 tab PO Q8HP PRN (Reason: pain) RF: 0 levothyroxine 75 mcg tablet 75 mcg PO QAMAC RF: 0 metformin 1,000 mg tablet 1,000 mg PO BIDCC RF: 0 furosemide 20 mg Tablet 20 mg PO QAM RF: 0 mirtazapine 15 mg Tablet 15 mg PO QHS RF: 0 Follow Up Plan Patient Disposition: Prognosis: Fair Discharge Orders: Discharge Order (Routine); Ordered 06/22/20 Ordered By: Pepper RUBIO VTE Deep Vein Thrombosis/Pulmonary Embolism Present on Admission: No
--- NOTE | 2020-06-23 10:16 | Surgical Pathology Report ---
HISTOLOGY SPECIMEN MICROSCOPIC DIAGNOSIS BONE, T-5, CT-GUIDED NEEDLE BIOPSY: -- METASTATIC POORLY DIFFERENTIATED NON-SMALL CELL CARCINOMA, CONSISTENT WITH SQUAMOUS CELL CARCINOMA. (SEE COMMENT) (ACP:sln) COMMENT: The morphologic appearance and immunohistochemical staining pattern is consistent with metastatic poorly differentiated squamous cell carcinoma. The clinical history of a 4 cm hilar mass in the left upper lobe of the lung, identified on CT scan, is noted. Clinical and radiographic correlation is recommended. MICROSCOPIC DESCRIPTION Examination of the CT-guided T-5 needle biopsy demonstrates metastatic tumor forming irregular nests of malignant cells with associated desmoplasia. The larger nests have dyscohesive central appearance. Cytologically, the cells are enlarged with hyperchromasia, pleomorphic nuclei, irregular chromatin and a few nucleoli. Apoptosis is present within the tumor, along with a few mitoses. Immunohistochemical panel is performed (adequate technical controls). Pancytokeratin plus: Positive CK7, TTF-1, Napsin-A: Negative CK5/6, p63: Positive CDX2, CK20: Negative PSA, PSAP, P504S: Negative GATA3: Negative Some of the tests reported here may not have been cleared or approved by the U.S. Food and Drug Administration (FDA). However, the FDA has determined that such clearance or approval is not necessary. Pursuant to the requirements of CLIA, this laboratory has established and verified the accuracy and precision of all tests, and additional information about these tests is available upon request. All technical controls are adequate. GROSS DESCRIPTION Received in formalin labeled with the patient information, are five cores of stark-schaefer tissue ranging in size from 0.3 to 1.6 cm in length and less than 0.1 cm in diameter. Totally submitted - two cassettes. (KGW:sln) Electronically Signed by: Oscar Yen M.D.
[2020-06-25] MEDS ORDERED: SCOPOLAMINE 1 PATCH PATCH TOPICAL SCH (17:00)
== END 2020-06-22 22:42 | disposition expired | DRG 166 ==
LOC: ED 10:55 → ICU 16:11
PROVIDERS: ADMIT Internal Medicine; ATTEND Internal Medicine